=== PATIENT | male | born 1965 | race Caucasian/White ===

== ENCOUNTER 2018-07-16 02:40 | Outpatient (CLI) | payer BC, SELFPAY ==
[2018-07-16 15:40] LABS: Hemoglobin A1C 7.3 % (4.5-6.2)
== END 2018-07-16 03:00 ==
PROVIDERS: PCP Family Medicine; Visit Provider Family Medicine
DX: E10.9 Type 1 diabetes mellitus without complications (principal)
CPT/HCPCS: 36415; 83036

== ENCOUNTER 2019-07-10 02:29 | Outpatient (CLI) | payer BC, SELFPAY ==
[2019-07-10 11:59] LABS: Hemoglobin A1C 7.3 % (3.8-5.6)
== END 2019-07-10 02:49 ==
PROVIDERS: PCP Family Medicine; Visit Provider Family Medicine
DX: R73.9 Hyperglycemia, unspecified (principal)
CPT/HCPCS: 36415; 83036

== ENCOUNTER → 2019-10-29 11:09 | Outpatient (CLI) | payer BC, SELFPAY ==
--- NOTE | 2019-10-29 10:45 | DI.RAD_ITS ---
EXAM: XR SHOULDER RT COMPLETE 2+V CLINICAL HISTORY: RIGHT SHOULDER PAIN. TECHNIQUE: 2D digital imaging was performed. COMPARISON: No exams were available for comparison FINDINGS: BONES: No acute fracture is present. No bony destructive lesion is seen. JOINTS: No dislocation present. There is mild spurring at the AC joint and glenohumeral joint. SOFT TISSUE: Normal. No tendon or joint space calcifications are seen. IMPRESSION: Mild degenerative changes. DATA REPOSITORY: RADIATION DOSE DELIVERED:
== END ==
PROVIDERS: PCP Family Medicine; Referring Provider Family Medicine; Visit Provider Physician Assistant
DX: M25.511 Pain in right shoulder (principal); M19.011 Primary osteoarthritis, right shoulder
CPT/HCPCS: 73030

== ENCOUNTER → 2019-12-16 01:47 | Outpatient (CLI) | payer BC, SELFPAY ==
--- NOTE | 2019-12-16 15:35 | DI.MRI_ITS ---
EXAM: MR UPPER JOINT RT WO CLINICAL HISTORY: RT SHOULDER PAIN, RT ROTATOR CUFF TEAR,M75.101. TECHNIQUE: Multiplanar multisequence MRI was performed. COMPARISON: CR XR SHOULDER RT COMPLETE 2+V from 10/29/2019 FINDINGS: MR examination shoulder was performed according to the usual protocol. Bones: There are moderate hypertrophic degenerative changes of the acromion and clavicle at the acrom ioclavicular joint. There is a prominent inferior acromial spur. There appears to be associated def ormity of superior aspect of supraspinatus tendon and myotendinous junction region associated with th chris findings. No other significant bony abnormality seen. Glenoid labrum appears grossly intact by noncontrast criteria. Biceps tendon: Biceps tendon and anchor appear intact with biceps tendon normally positioned in the b icipital groove. Rotator cuff: There is thickening of the infraspinatus tendon with mild intrasubstance signal abnorma lities consistent with tendinosis, question mild roughening of inferior surface of infraspinatus tend on may represent mild partial thickness tearing. Supraspinatus tendon is deformed superiorly at the AC joint with mild associated signal abnormality. There is an apparent bursal surface tear of the supraspinatus at the level of the distal acromion me asuring up to 8 millimeters in diameter.. There is probable small inferior surface tear just proxima l to the footprint measuring up to about 3 millimeters in diameter. There is no full-thickness tear of the supraspinatus. The footprint appears intact. Subscapularis tendon shows mild irregularity of its superior aspect which probably represents some sm all partial-thickness tear is at and proximal to the humeral attachment. No full-thickness subscapul bryan tendon tear. IMPRESSION: Degenerative changes with associated supraspinatus impingement. Supraspinatus, infraspinatus and garcia b scapularis tendon partial-thickness tears, no full-thickness rotator cuff tear identified. DATA REPOSITORY:
== END ==
PROVIDERS: PCP Family Medicine; Visit Provider Orthopaedic Surgery
DX: M25.511 Pain in right shoulder (principal); M75.101 Unspecified rotator cuff tear or rupture of right shoulder, not specified as traumatic
CPT/HCPCS: 73221

== ENCOUNTER 2020-01-23 07:17 | Outpatient (CLI) | payer BC, SELFPAY ==
[2020-01-24 14:40] LABS: COVID-19 RT-PCR Result NEGATIVE (Negative)
== END 2020-01-23 07:37 ==
PROVIDERS: PCP Family Medicine; Visit Provider Orthopaedic Surgery
DX: Z11.59 Encounter for screening for other viral diseases (principal); Z01.818 Encounter for other preprocedural examination
CPT/HCPCS: U0003

== ENCOUNTER 2020-01-26 09:19 | Day surgery (SDC) | payer BC, SELFPAY ==
[2020-01-26] VITALS (7 sets, daily range): BP systolic 88–138; BP diastolic 41–78; PULSE 52–74; RESP 11–18; TEMP 36–36.4; O2SAT 96–98
[2020-01-26] MEDS: Lactated Ringers 1,000 ML 80 ML IV (10:03)
[2020-01-26] MEDS: ceFAZolin 1 GM/50 ML BAG IVPB (11:38)
--- NOTE | 2020-01-26 12:26 | W.PM.DSUDISC ---
Discharge Plan Disposition Patient Disposition: HOME Condition: Good Discharge Details Attending Provider: Aman Marr Primary Care Provider: Jay Gomez Home Meds and New Rx's Prescriptions: New ibuprofen 800 mg tablet 800 mg PO TID Qty: 30 RF: 0 oxycodone-acetaminophen 5-325 mg tablet 1 tab PO Q4H PRN (Reason: pain) Qty: 20 RF: 0 Continued ketoconazole 2 % cream 1 applic TP BID PRN (Reason: tinea versicolor) Qty: 30 RF: 1 insulin lispro [Humalog U-100 Insulin] 100 UNIT/1 ML solution 2 - 15 units SQ AC RF: 0 atorvastatin 40 mg tablet 40 mg PO QHS RF: 0 Lantus Solostar U-100 Insulin 100 unit/mL (3 mL) insulin pen 24 unit SC HS RF: 0 calcium carbonate 500 MG tablet,chewable 500 mg PO PRN PRNRF: 0 Discharge Instructions Additional Instructions: Sling for comfort. May take R arm out of sling and move it as much as your pain allows. Discontinue sling when you don't feel you need it. Leave cryocuff on R shoulder continuously overnite tonite. Tomorrow, start to use it 4 times/day for 1 hour each time. May shower and get dressing wet on Sun. Don't take dressing off--let it gradually fall off by itself. Outpatient physical therapy for ROM and strengthening R shoulder on or Sunday. Follow up with in 2 weeks. Take ibuprofen 3 times/day for swelling and inflammation. Take oxycodone for breakthru pain, if needed. Referrals: Aman Marr MD [ [facility] STAFF PHYSICIAN] - (f/u in 2 weeks.) Equipment/Supplies: Sling Activity:: Activity as Tolerated Remove Dressings/Wound Care:: Do Not Remove Shower/Bathe:: 48 hours Diet:: Carb Counting Discharge Orders Discharge Orders: Discharge Order (Routine); Ordered 01/26/20 Ordered By: Aman Marr DS: Diagnosis Discharge Diagnosis (1) DJD of AC (acromioclavicular) joint: Status: Acute (2) Impingement syndrome of left shoulder: Status: Acute
--- NOTE | 2020-01-26 13:09 | W.PM.OP ---
Date of service: 01/26/20 Time of Service: 11:30 Operative Note Operative Note DATE OF PROCEDURE: 01/26/20 PRE-OP DIAGNOSIS: DJD AC joint right, impingement syndrome right shoulder. POST-OP DIAGNOSIS: same PROCEDURE: Excision distal clavicle right, anterior acromioplasty right SURGEON: Aman Marr [employer] ATTENDANT: Roderick Watson ANESTHESIA: GETA ESTIMATED BLOOD LOSS: 20 PATHOLOGY: none sent COMPLICATIONS: None Patient was transported to: PACU Patient's condition: stable Indications: 54-year-old [id number] male with a many year history of right shoulder pain. This is been managed conservatively with the subacromial space injections and PT. Over the last year his right shoulder pain has become more pronounced and refractory to conservative treatment. He was noted to have DJD of the AC joint as well as impingement syndrome from his anterior acromion. MRI scan was obtained which did not show a full-thickness tear of his rotator cuff. He did have tendinosis/partial-thickness tear that were probably due to his subacromial impingement. I felt he would benefit by excision distal clavicle as well as an anterior acromial plasty. This will eliminate the pain from the AC joint and decompress his rotator cuff. Risk and hesitancy to explained patient detail preop. He was to proceed soon as possible. Procedure Description: Patient taken the operating room on 01/26/2020 where he was put supine operative table and general anesthetic was administered. Medial roll was placed medial to his right scapula he was placed in the eden chair position. Right shoulder was then prepped and draped free in usual sterile fashion. Incision was made over the superior aspect of the clavicle centered over the AC joint and then was carried distally about a centimeter distal to the lateral acromion. Subcutaneous veins were cauterized. Proximal incision was made in the AC joint capsule and then the distal clavicle was subperiosteally exposed. The distal centimeter clavicle was then transected with an oscillating saw and excised. Using sharp dissection subperiosteally exposed the anterior acromion. The and acromioplasty was performed first using osteotomes and a mallet. It was then further smoothed with a large rasp. The resected distal clavicle was then packed with bone wax alignment postop bleeding. The wound margins rotated 0.5% Marcaine with epinephrine solution. The AC joint capsule and periosteum over the distal clavicle were approximated interrupted [id number] sutures of #1 Maxon today. The anterior deltoid was sutured back to the periosteum over the acromion with interrupted [id number] sutures of #1 Maxon suture. Subcu was approximated few interrupted 2-0 Vicryl's. A running subcu suture of 4-0 Monocryl supplemented with Steri-Strip was then performed. A Mepilex dressing was applied. The wound margins have infiltrated 0.5 the Marcaine with epinephrine solution from the skin down to the rotator cuff. Patient's anesthesia was reversed all complication. Estimated blood loss was 20 cc. Patient was discharged to recovery in good condition. Patient was discharged home from day surgery unit and fully recovered from his general anesthesia. He was given instructions to use a sling for comfort. May take his right arm out of the sling as much and as often as discomfort allows. He may discontinue the sling when he does not feel its necessary. He may shower and get his dressing wet on Sunday. He is to leave his dressing alone and let it fall off by itself. We will begin outpatient physical therapy on or Sunday for range of motion strengthening of his right shoulder. He is given prescription for inflammation of ibuprofen 8 oh milligrams p.o. 3 times daily. 0 prescription for breakthrough pain of oxycodone with APAP 10/04/2024 1 tab every 4 hours if needed. Follow-up with Dr. Marr in 2 weeks.
== END 2020-01-26 15:00 | disposition home or self-care (01) ==
PROVIDERS: PCP Family Medicine; Visit Provider Orthopaedic Surgery
PROC: (CPT 23120; principal; 2020-01-26 11:00)
PROC: (CPT 23130; 2020-01-26 11:00)
DX: M19.011 Primary osteoarthritis, right shoulder (principal); M75.42 Impingement syndrome of left shoulder; M75.111 Incomplete rotator cuff tear or rupture of right shoulder, not specified as traumatic
CPT/HCPCS: 23415; 23120; J0690; J1100; J1885; J2001; J2370; J2405; J2704; L3650; L3670

== ENCOUNTER 2020-06-16 04:48 | Outpatient (CLI) | payer BC, SELFPAY ==
[2020-06-16 17:47] LABS: Hemoglobin A1C 7.1 % (<5.7)
[2020-06-17 17:43] LABS: PSA, Screening 0.4 ng/mL (0.0-3.5)
== END 2020-06-16 05:08 ==
PROVIDERS: PCP Family Medicine; Visit Provider Family Medicine
DX: E78.5 Hyperlipidemia, unspecified (principal); Z12.5 Encounter for screening for malignant neoplasm of prostate
CPT/HCPCS: 36415; 84153; 83036

== ENCOUNTER 2020-09-07 06:17 | Day surgery (SDC) | payer BC, SELFPAY ==
[2020-09-07 06:19] VITALS: BP 122/74; PULSE 66; RESP 17; TEMP 36.6; O2SAT 97
--- NOTE | 2020-09-07 07:01 | W.PM.DSUDISC ---
Discharge Plan Disposition Patient Disposition: HOME Condition: Good Discharge Details Reason For Visit: TRIGGER FINGER Attending Provider: Nawaf Bejarano Primary Care Provider: Jay Gomez Home Meds and New Rx's Prescriptions: New acetaminophen 500 mg tablet 1,000 mg PO Q8H PRN (Reason: pain) Qty: 30 RF: 3 ibuprofen 600 mg tablet 600 mg PO TID PRN (Reason: pain) Qty: 30 RF: 3 Continued ketoconazole 2 % cream 1 applic TP BID PRN (Reason: tinea versicolor) Qty: 30 RF: 1 insulin lispro [Humalog U-100 Insulin] 100 UNIT/1 ML solution 2 - 15 units SQ AC RF: 0 atorvastatin 40 mg tablet 40 mg PO QHS RF: 0 Lantus Solostar U-100 Insulin 100 unit/mL (3 mL) insulin pen 24 unit SC HS RF: 0 lisinopril 5 mg Tablet 5 mg PO HS RF: 0 calcium carbonate 500 MG tablet,chewable 500 mg PO PRN PRNRF: 0 Discontinued ibuprofen [IBU-200] 200 mg tablet 600 mg PO Q6H PRNRF: 0 Discharge Instructions Stand Alone Forms: Darci Calle Finger Release Activity:: Elevate Remove Dressings/Wound Care:: 48 hours Shower/Bathe:: 48 hours Diet:: As Tolerated Discharge Orders Discharge Orders: Discharge Order (Routine); Ordered 09/07/20 Ordered By: Nawaf Bejarano DS: Diagnosis Discharge Diagnosis (1) Trigger index finger of left hand: Status: Acute
[2020-09-07] MEDS: Sodium Bicarbonate 50 MEQ/50 ML VIAL (07:32)
--- NOTE | 2020-09-07 11:53 | ROE_ITS ---
Date of service: 09/07/20 Time of Service: 07:43 Operative Note Operative Note DATE OF PROCEDURE: 09/07/20 PRE-OP DIAGNOSIS: Left Index Trigger Finger POST-OP DIAGNOSIS: same PROCEDURE: Trigger Finger Release - Left Index Finger SURGEON: Nawaf Bejarano ANESTHESIA TYPE: Local By Surgeon Refer to Anesthesia Record ESTIMATED BLOOD LOSS: 0 PATHOLOGY: none sent COMPLICATIONS: None Patient was transported to: same day Patient's condition: stable Indications: I have seen Chas in clinic for symptoms of a trigger finger. The catching, clicking, locking, and pain limited function. The diagnosis of trigger finger was evident. The symptoms had not responded to conservative measures. I discussed trigger finger release with the patient. I reviewed the risks of the procedure to include, but not limited to, bleeding, infection, pain, stiffness, incomplete release, damage to nerves or vessels, continued catching, recurrence. Despite these risks, the patient elected to proceed. Findings: There was a tightened A1 ross which was released. The flexor tendons were inspected and the patient was able to move the finger without any catching, clicking, or locking. Procedure Description: Chas was greeted in the preoperative holding area where the correct side was identified and marked. The consent was reviewed with the patient and signed. All questions were answered. Chas was taken back to the operating room. The patient was placed into the supine position on the operating room table with the left arm on an arm board. All bony prominences were well padded. No prophylactic antibiotics were administered since this was a clean, elective hand surgical case. The left arm was then prepped with Chloraprep and draped in a standard fashion with stockinette and extremity drape. A timeout to confirm correct identity, side and site, procedure, allergies, anesthesia, and medical concerns was performed. The surgical site was marked as a longitudinal incision directly over the A1 ross of the involved digit. This was confirmed with palpation during finger flexion. This area, overlying the metacarpal head, was then anesthetized with 1% Lidocaine. The patient tolerated this well and once the anesthetic had setup, the procedure began. A longitudinal incision was made through skin only, approximately 1cm. The deep tissues were dissected bluntly. Once the A1 ross and flexor tendons were identified the soft tissue including neurovascular structures were retracted medially and laterally. There were no crossing structures over the A1 ross. The proximal edge of the ross was identified and the ross was incised with tenotomy scissors. There was a release of the tendons once this was fully released. The tendons were then removed from the wound and inspected. Excess synovium was resected. The tendons were then returned and the patient was asked to move the finger into deep flexion and back to extension. There was no recreation of the pre-operative symptoms. The hand was then once more inspected for any A0 ross or area of possible constriction. The wound was then irrigated and the skin was closed with a 4-0 Nylon. This was dressed with gauze and a Conform dressing. The patient tolerated the pro cedure well and was returned to the Same Day Surgery area in a stable condition suffering no known complication.
== END 2020-09-07 08:03 | disposition home or self-care (01) ==
PROVIDERS: PCP Family Medicine; Visit Provider Student in an Organized Health Care Education/Training Program
PROC: (CPT 26055; principal; 2020-09-07 07:30)
DX: M65.322 Trigger finger, left index finger (principal)
CPT/HCPCS: 26055

== ENCOUNTER 2020-11-08 11:35 | Outpatient (CLI) | payer BC, SELFPAY ==
--- NOTE | 2020-11-08 08:15 | DI.RAD_ITS ---
Exam(s) XR FINGER LT INDEX EXAM: XR FINGER LT INDEX EXAM DATE/TIME: CLINICAL HISTORY: s/p left index finger trigger finger. TECHNIQUE: 2D digital imaging was performed. COMPARISON: None. FINDINGS: BONES: No acute fracture is present. No bony destructive lesion is seen. JOINTS: No dislocation is present. SOFT TISSUE: Normal. IMPRESSION: No evidence of acute fracture or dislocation. DATA REPOSITORY: RADIATION DOSE DELIVERED:
== END 2020-11-08 11:36 | disposition home or self-care (01) ==
LOC: DIORS 11:35
PROVIDERS: PCP Family Medicine; Referring Provider Family Medicine; Visit Provider Physician Assistant
DX: M65.322 Trigger finger, left index finger (principal); Z98.890 Other specified postprocedural states
CPT/HCPCS: 73140

== ENCOUNTER 2021-07-04 13:47 | Outpatient (REF) | payer BC, SELFPAY ==
[2021-07-06 11:23] LABS: COVID-19 RT-PCR UVMMC Result Negative (Negative)
--- NOTE | 2021-07-08 17:44 | CHAPLAIN ---
Chas was resting in bed when I visited. 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 He thinks he may be discharged today. He was concerned about the three year old granddaughter who had surgery recently and today had a temperature.
== END 2021-07-04 13:48 | disposition home or self-care (01) ==
LOC: LBN 13:47
PROVIDERS: PCP Family Medicine; Visit Provider Family Medicine
DX: R05.9 Cough, unspecified (principal); Z20.822 Contact with and (suspected) exposure to COVID-19
CPT/HCPCS: U0003

== ENCOUNTER 2021-07-06 13:36 | Inpatient (IN) | payer BC, SELFPAY ==
[2021-07-06] VITALS (27 sets, daily range): BP systolic 124–160; BP diastolic 53–96; PULSE 81–112; RESP 8–33; TEMP 36.5–37.8; O2SAT 91–97
--- NOTE | 2021-07-06 13:30 | RT.EKG_ITS ---
APPROVED REPORT Exam: Resting ECG Reason for Exam: sob Patient Location: E HR:94 bpm ECG Measurements Heart Rate 94 AXIS AK 81 P 36 QRSd 89 QRS 86 QT 335 T 53 QTc 420 Conclusion Sinus rhythm...normal P axis, V-rate 60- 99 sinus rhythm at 94, normal axis, no acute ischemic changes, nondiagnostic EKG
--- NOTE | 2021-07-06 14:20 | ED.GENADUL_ITS ---
Discharge Plan Disposition Patient Disposition: [facility] INPATIENT Condition: Stable Discharge Details Clinical Impression: Hypoxia, Cough Admit Date/Time: 07/06/21 18:00 Admit Provider: Christopher Jacob Attending Provider: Christopher Jacob Primary Care Provider: Jay Gomez ED Provider: Narayan Ramirez Discharge Data Discharge Date/Time-TO BE ENTERED AT DEPARTURE: 07/06/21 19:21 Medical Decision Making <Samanta Ramirez MD - Last Filed: 07/21/21 10:26> Chas Kingsley is a 56 y/o man with history of insulin dependent diabetes, hyperlipidemia, hypertension who presented to the emergency department for shortness of breath and cough over the past few days, also with orthopnea. On exam patient initially with O2 90% on room air, satting 96 to 97% with 2 L nasal cannula. Normal work of breathing on oxygen, slight tachypnea on room air. Lungs are clear to auscultation. No peripheral edema, no posterior calf tenderness to palpation. Bedside POCUS shows no pericardial effusion, B-lines throughout anterior bilateral lung holcomb. Concern for acute coronary syndrome, CHF, Covid, bacterial pneumonia, pulmonary embolism, metabolic/lyte derangement, other. Exam/history is not consistent with acute aortic pathology, sepsis. EKG is nondiagnostic. Plan for IV placement, screening labs, chest x-ray, continue nasal cannula O2, telemetry. Will monitor and reassess. Pt signed out to Dr. Ramirez with imaging, labs, dispo pending. Medical Records Medical records reviewed: Yes I reviewed the patient's medical records. Imaging Data Radiologic Study: Attestation: I personally reviewed and interpreted this imaging study as follows: Lab Data Lab results reviewed: Yes I reviewed the patient's lab results. Labs: Laboratory Tests Range/Units 07/06/21 07/06/21 07/06/21 14:20 14:20 14:40 WBC (4.4-10.8) 10^3/uL 14.28 H RBC (4.36-5.78) 10^6/uL 4.97 Hgb (13.5-17.5) g/dL 15.3 Hct (40.0-50.0) % 45.3 MCV (80-95) fL 91.1 MCH (27.0-33.0) pg 30.8 MCHC (32.0-36.0) % 33.8 RDW (11.8-14.1) % 12.7 Plt Count (130-400) 10^3/uL 299 MPV (8.0-11.0) fL 10.8 Immature Gran % 1.1 Neutrophils % 77.5 Lymphocytes % 7.4 Monocytes % 10.4 Eosinophils % 3.2 Basophils % 0.4 Nucleated RBC % % 0 Absolute Neutrophils (1.2-6.7) 10^3/uL 11.07 H Absolute Lymphocytes (1.2-3.4) 10^3/uL 1.06 L Absolute Monocytes (0.1-0.8) 10^3/uL 1.49 H Absolute Eosinophils (0.0-0.7) 10^3/uL 0.46 Absolute Basophils (0.0-0.2) 10^3/uL 0.06 Sodium (136-145) mmol/L 135 L Potassium (3.5-5.1) mmol/L 4.2 Chloride (98-107) mmol/L 99 Carbon Dioxide (21.0-32.0) mmol/L 27.9 Anion Gap (3-11) mmol/L 8.1 BUN (7-18) mg/dL 21 H Creatinine (0.70-1.30) mg/dL 1.0 Estimated GFR/1.73 m2 (mL/min/1.73m2) >= 60.00 Glucose (74-106) mg/dL 147 H Calcium (8.5-10.1) mg/dL 9.0 Magnesium (1.8-2.4) mg/dL 1.9 Total Bilirubin (0.2-1.0) mg/dL 0.7 AST (15-37) U/L 14 L ALT (16-63) U/L 25 Alkaline Phosphatase (46-116) U/L 92 Troponin I (<or=60) ng/L < 50 NT-Pro-B Natriuret Pep (<300) pg/mL 27 Total Protein (6.4-8.2) g/dL 6.9 Albumin (3.4-5.0) g/dL 3.3 L COVID-19 Source Nasopharynx SARS-CoV-2 (PCR) (Negative) Negative Influenza Type A (PCR) (Negative) Negative Influenza Type B (PCR) (Negative) Negative RSV (PCR) (Negative) Negative ECG Data Attestation: I personally reviewed and interpreted this ECG (s) as follows: Interpretation: EKG shows sinus rhythm at 94, normal axis, no acute ischemic changes, nondiagnostic EKG <Narayan Ramirez MD - Last Filed: 07/06/21 22:54> 1645 -- Care signed out by Dr. Samanta Ramirez with plan to follow-up on CT chest and reassess patient for disposition. Please see her documentation regarding initial ED presentation and course. Notified by nursing that patient having increased work of breathing despite low flow nasal cannula oxygen. Nasal cannula oxygen increased to 4 L and still having increasing work of breathing. RT was consulted and BiPAP was initiated. Patient now breathing easier on BiPAP. VBG reviewed and no significant acidosis or hypoxemia noted. CT chest pending. 1752 --nursing provided update the BiPAP was discontinued and patient tolerating nasal cannula. CT of the chest was interpreted by radiology: No evidence of pulmonary embolism or other acute abnormality, notably unremarkable lungs with no consolidation or masses, heart noted to be unremarkable with no cardiomegaly and no pericardial effusion. Here labs reviewed and COVID-19 negative. Unclear etiology for hypoxia. Plan to admit for further work-up and treatment. Will cover with ceftriaxone and azithromycin IV for possible pneumonia. 1800 -- I spoke with Dr. Lopez, accordion repairer hospitalist/home therapy clinician who will admit patient. HPI <Samanta Ramirez MD - Last Filed: 07/21/21 10:26> General Mode of arrival: ambulatory . Date/Time Provider Initiated Documentation: 07/06/21 13:41 . Limitations to Documentation: no limitations . Information obtained by: patient, RN notes reviewed and old records reviewed . HPI Narrative: Chas Kingsley is a 56-year-old man with a history of insulin-dependent diabetes, hyperlipidemia, sleep apnea, hypertension presenting to emergency department with chief complaint shortness of breath. Patient reports that during the afternoon of 06/24/2021 he began to feel short of breath. Patient reports that there were no known inciting event at this time. He also developed cough. Patient reports that since that time he has had worsening shortness of breath. He has had sleep sitting up in a recliner which he has never had to do before. Shortness of breath is also worse with exertion. Patient reports that he does have dyspnea at rest, although much less than when exerting himself or lying flat. He denies any pain. No fevers, vomiting, numbness, weakness, rash. He reports some skin itching over the past few days, and has some mild diarrhea. Patient reports that he has been triple vaccinated for COVID, and has had 2 - antigen test and one negative PCR test for Covid since onset of symptoms. Related Data Home Medications Medication Instructions Recorded Confirmed calcium carbonate 200 mg calcium 500 mg PO PRN PRN 10/09/16 07/20/21 (500 mg) chewable tablet insulin glargine 100 unit/mL (3 24 unit SC HS ml 08/19/19 07/20/21 mL) subcutaneous pen (Lantus Solostar U-100 Insulin) lisinopril 5 mg tablet 5 mg PO HS 09/07/20 07/20/21 atorvastatin 40 mg tablet 80 mg PO QHS tab 10/08/20 07/20/21 sildenafil 100 mg tablet 50 - 100 mg PO DAILY PRN #30 tab 05/20/21 07/20/21 pen needle, diabetic 31 gauge x #50 ea 07/09/21 07/20/2108/17 (CareTouch Pen Needle) albuterol sulfate 90 mcg/actuation 2 puff INHALATION QID PRN #6.7 g 07/13/21 07/20/21 aerosol inhaler (Ventolin HFA) insulin lispro-aabc 100 unit/mL 1 sliding scale dose SUBCUT 07/13/21 07/20/21 subcutaneous pen (Nasra Ayoub USEASDIRECTD U-100 Insulin) famotidine 20 mg tablet 20 mg PO DAILY PRN #90 tab 07/20/21 07/20/21 Previous Rx's Medication Instructions Recorded sildenafil 100 mg tablet 50 - 100 mg PO DAILY PRN #30 tab 05/20/21 pen needle, diabetic 31 gauge x #50 ea 07/09/2108/17 (CareTouch Pen Needle) albuterol sulfate 90 mcg/actuation 2 puff INHALATION QID PRN #6.7 g 07/13/21 aerosol inhaler (Ventolin HFA) famotidine 20 mg tablet 20 mg PO DAILY PRN #90 tab 07/20/21 Allergies Allergy/AdvReac Type Severity Reaction Status Date / Time No Known Allergies Allergy Verified 07/20/21 15:02 General Stated Complaint: SOB SHIVANI: 2 Review of Systems <Samanta Ramirez MD - Last Filed: 07/21/21 10:26> Narrative: Constitutional: denies fevers Eyes: denies eye pain ENT: denies ear pain, dental pain, sore throat Cardiovascular: denies chest pain, edema, reports orthopnea Respiratory: Reports SOB, cough GI: denies abdominal pain, vomiting, diarrhea : denies flank pain MSK: denies back pain, neck pain, arthralgias, myalgias Skin: denies rash, reports generalized skin itching Neuro: denies headaches, numbness, weakness PFSH <Samanta Ramirez MD - Last Filed: 07/21/21 10:26> All Active Problems Adjustment disorder with depressed mood (Acute) DM (diabetes mellitus) (Acute) Viral pneumonitis (Acute) CARMENCITA on CPAP (Chronic) Former heavy tobacco smoker (Acute) Medical History Cellulitis of toe Cough Diabetes mellitus Diabetes mellitus type 1 (10/24/12) continue with endo Diabetic retinopathy of both eyes (~06/10/20) MODERATE B/L Elevated blood pressure reading without diagnosis of hypertension Esophagitis (04/09/17) 04/09/17 SEVERE WITH ULCER Gastritis (04/09/17) GERD (gastroesophageal reflux disease) Hyperlipidemia Hypertension Hypoxia Impingement syndrome of left shoulder Orthopnea CARMENCITA (obstructive sleep apnea) uses cpap Pneumonia Rash Respiratory failure with hypoxia Shoulder pain, right Subacromial bursitis Tear of right rotator cuff Tendinosis of rotator cuff Tinea corporis Tinea versicolor Trigger index finger of left hand s/p left index finger trigger release DOS: 09/07/20 Umbilical hernia Surgical History Colonoscopy - MAC (04/09/17) DJD of AC (acromioclavicular) joint S/P distal clavicle excision/acromioplasty: 01/26/2020 EGD - MAC (04/09/17) Family History Mother No problems noted. Father Alcohol abuse Heart disease Stroke Brother Heart disease Stroke Son , 25 Substance abuse Social History Smoking/Tobacco Use Status: Former Tobacco Use tobacco type: cigarettes Quit Date: 06/14/16 Tobacco: How many years used: 35 Smoking risk assessment performed?: Yes Alcohol Intake: current Alcohol Intake frequency: holidays/special occasions only Alcohol type: beer Drug use: Never Substance use type: does not use Caregiver/Support person: No Household members: spouse and adopted family Housing: house Communication Needs: None Do you need help understanding health information?: Rarely Pets and animals: Yes Pets and animals: cat(s) and dog(s) Sexually active: Yes Do you think of yourself as: straight/heterosexual Current gender identity: male What is your relationship status?: How often do you talk on the phone with friends or family?: once per week How often do you get together with friends or relatives?: once per week How often do you attend faith or islam services?: decline to answer Do you belong to any clubs or organized social groups?: no Panel score (0-1 are the most socially isolated patients): 1 What type of physical activity do you participate in: none Duration: 45-60 minutes/day Frequency: daily Rachele/Judaism: None Special rachele needs: No Seatbelt use: always Helmet use: No Drive intox or ride w/intox 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: No Do you feel safe at home: Yes Do you feel safe in your relationship?: Yes Victim of physical abuse: No Victim of emotional abuse: No Victim of sexual abuse: No Would you like helpful sources: No Exam <Samanta Ramirez MD - Last Filed: 07/21/21 10:26> Narrative Exam Narrative: Constitutional: well and [id number], pleasant, conversing normally HENT: head atraumatic/normocephalic/normal inspection, mucous membranes moist Eyes: conjunctiva normal, sclera normal, pupils 3mm b/l Neck: no stridor, normal ROM, trachea midline Chest: normal inspection Resp: Mild tachypnea on room air, improved with 2 L nasal cannula oxygen. LCTAB Cardio: normal rate, normal rhythm, no murmur appreciated GI: abdomen soft, non-tender, non-distended Back: normal inspection, no rash Skin: warm, dry, normal color, no rash Neuro: alert, not altered, grossly non-focal, normal tone Ext: no edema, no posterior calf tenderness to palpation Psych: normal mood, normal affect, normal behavior Course <Samanta Ramirez MD - Last Filed: 07/21/21 10:26> Vital Signs Vital signs: Vital Signs Temperature 36.5 C 07/06/21 13:46 Pulse 98 H 07/06/21 13:46 Respiratory Rate 14 07/06/21 13:46 Pulse Oximetry 92 07/06/21 13:46 Temperature 36.5 C 07/06/21 13:46 Pulse 103 H 07/06/21 14:03 Pulse 93 H 07/06/21 14:03 Respiratory Rate 25 H 07/06/21 14:03 Respiratory Effort Non-Labored 07/06/21 13:52 Respiratory Depth Normal 07/06/21 13:52 Respiratory Pattern Normal 07/06/21 13:52 Blood Pressure 138/96 H 07/06/21 14:03 Blood Pressure Mean 103 07/06/21 14:03 Blood Pressure Position Sitting 07/06/21 13:46 Pulse Oximetry 94 07/06/21 14:03 Oxygen Delivery Method Room Air 07/06/21 13:46 Oxygen Flow Rate 0 07/06/21 13:46 Pain Level 0 07/06/21 13:46 <Narayan Ramirez MD - Last Filed: 07/06/21 22:54> Critical Care Time Critical Care Time: Yes Total Critical Care Time: 40 Attestation: I spent greater than 40 minutes addressing this patient's immediate life threats. Please see MDM section of note. This time was spent engaged in work directly related to the patient's care, exclusive of separate procedures, and failure to initiate these interventions would have likely resulted in clinically significant or life threatening deterioration in the patient's condition. Sign Out <Samanta Ramirez MD - Last Filed: 07/21/21 10:26> Sign Out Data: Sign Out Comment: Patient signed out to Dr. Ramirez at time of shift change with labs, CT chest, dispo pending Last updated by Samanta Ramirez MD at 07/06/21 15:36
[2021-07-06 14:38] LABS: Abs Immature Grans 0.15 10^3/uL (0.0-0.06); Absolute Monocyte Count 1.49 10^3/uL (0.1-0.8); Basophils % 0.4; Eosinophils % 3.2; HCT 45.3 % (40.0-50.0); HGB 15.3 g/dL (13.5-17.5); Immature Grans % 1.1; Lymphocytes % 7.4; MCH 30.8 pg (27.0-33.0); MCHC 33.8 % (32.0-36.0); MCV 91.1 fL (80-95); MPV 10.8 fL (8.0-11.0); Monocytes % 10.4; Neutrophils % 77.5; Nucleated RBC 0 %; Platelet Count 299 10^3/uL (130-400); RBC 4.97 10^6/uL (4.36-5.78); RDW 12.7 % (11.8-14.1); RDW-SD 42.5 fL; WBC 14.28 10^3/uL (4.4-10.8)
[2021-07-06 14:46] LABS: Source Nasopharynx
[2021-07-06 14:59] LABS: ALT 25 U/L (16-63); AST 14 U/L (15-37); Albumin 3.3 g/dL (3.4-5.0); Alkaline Phosphatase 92 U/L (46-116); Anion Gap 8.1 mmol/L (3-11); BUN 21 mg/dL (7-18); Bilirubin, Total 0.7 mg/dL (0.2-1.0); CO2 27.9 mmol/L (21.0-32.0); Chloride 99 mmol/L (98-107); Glucose 147 mg/dL (74-106); Magnesium 1.9 mg/dL (1.8-2.4); NT-proBNP 27 pg/mL (<300); Potassium 4.2 mmol/L (3.5-5.1); Sodium 135 mmol/L (136-145); Total Protein 6.9 g/dL (6.4-8.2); Troponin I < 50 ng/L (<or=60)
[2021-07-06 15:13] LABS: Absolute Basophil Count 0.06 10^3/uL (0.0-0.2); Absolute Eosinophil Count 0.46 10^3/uL (0.0-0.7); Absolute Lymphocyte Count 1.06 10^3/uL (1.2-3.4); Absolute Neutrophil Count 11.07 10^3/uL (1.2-6.7)
[2021-07-06 15:28] LABS: COVID-19 PCR Negative (Negative); Influenza A PCR Negative (Negative); Influenza B PCR Negative (Negative); RSV PCR Negative (Negative)
--- NOTE | 2021-07-06 15:30 | DI.CT_ITS ---
Exam(s) CT CHEST PE CTA EXAM: CT CHEST PE CTA CLINICAL HISTORY: SOB. TECHNIQUE: Imaging Protocol: Axial CT angiography was performed with multi-slice acquisition and mu lti-planar and/or 3D reconstructions. CONTRAST MATERIAL: Intravenous: Omnipaque 350 Contrast volume:structured data in ml COMPARISON: No exams were available for comparison FINDINGS: CT angiography of the chest was performed with intravenous infusion of 64 cc of Omnipaque 350. Motio n artifact limits evaluation of peripheral pulmonary vessels. The lungs are clear. No pleural effusion. Tracheobronchial tree appears intact. No evidence of pulmonary embolic disease. Thoracic aorta is of normal diameter, no thoracic aortic an eurysm or dissection, major branch vessels appear intact. No mediastinal or hilar adenopathy. Images obtained through the upper abdomen show unremarkable appearance of the visualized portions of the liver, spleen, pancreas, adrenals, and kidneys. IMPRESSION: Negative CT angiogram of the chest. No evidence of pulmonary embolic disease. Motion artifact limits evaluation of peripheral pulmonary vessels. RADIATION DOSE DELIVERED: 357.62mGy.cm Total DLP 357.62mGy.cm Total DLP CTDIvol DATA REPOSITORY: All CT scans at this facility are submitted to the National Radiology Data Registry (NRDR) Dose Index Registry (DIR) with the [employer] (A[employer]). RADIATION OPTIMIZATION: All CT scans at this facility use at least one of these dose optimization te chniques: automated exposure control; mA and/or kV adjustment per patient size (includes targeted exa ms where dose is matched to clinical indication); or iterative reconstruction.
[2021-07-06 15:47] LABS: D-Dimer 1586 ng/mlFEU (<500)
[2021-07-06 16:27] LABS: BE (Venous) 5 mmol/L (-2-3); HCO3 (Venous) 29 mmol/L (23-28); O2 Sat (Venous) 74 %; TCO2 (Venous) 25 mmol/L (24-29); pCO2 (Venous) 43 mmHg (41-51); pH (Venous) 7.43 (7.31-7.41); pO2 (Venous) 39 mmHg
[2021-07-06] MEDS: Omnipaque 350 MG/ML 100 ML BTL IJ (16:43)
--- NOTE | 2021-07-06 17:15 | RT.EKG_ITS ---
APPROVED REPORT Exam: Resting ECG Reason for Exam: shortness of breath Patient Location: E HR:103 bpm ECG Measurements Heart Rate 103 AXIS PA 88 P 51 QRSd 81 QRS 84 QT 327 T 55 QTc 429 Conclusion Sinus tachycardia...rate> 99
[2021-07-06] MEDS: Calcium Carbonate *TUMS* 500 MG CHEW 1000 MG PO (17:22)
--- NOTE | 2021-07-06 17:22 | DI.VRAD_ITS ---
PROCEDURE INFORMATION: Exam: CTA Chest With Contrast Exam date and time: 07/06/2021 3:31 PM Age: 56 years old Clinical indication: Shortness of breath; Patient HX: SOB; Additional info: Elevated ddimer TECHNIQUE: Imaging protocol: Computed tomographic angiography of the chest with contrast. 3D rendering (Not supervised by radiologist): MIP and/or 3D reconstructed images were created by the technologist. COMPARISON: MR UPPER JOINT RT WO 12/16/2019 3:02 PM FINDINGS: Pulmonary arteries: Normal. No pulmonary emboli. Aorta: Unremarkable. No aortic aneurysm. No aortic dissection. Lungs: Unremarkable. No consolidation. No masses. Pleural spaces: Unremarkable. No pneumothorax. No pleural effusion. Heart: Unremarkable. No cardiomegaly. No pericardial effusion. Lymph nodes: Unremarkable. No enlarged lymph nodes. Bones/joints: Unremarkable. No acute fracture. Soft tissues: Unremarkable. IMPRESSION: No evidence of pulmonary embolism or other acute abnormality. Dictated and Authenticated by: Evan Blank MD. Ordering:ANTON England MD
[2021-07-06 17:39] LABS: Troponin I < 50 ng/L (<or=60)
--- NOTE | 2021-07-06 18:15 | HPE_ITS ---
Date of service: 07/06/21 Time of Service: 18:15 Assessment and Plan Assessment and plan (1) Pneumonia: Status: Acute Assessment and plan: Chest CT is consistent with an atypical pneumonia with nodular infiltrates. Viral testing (COVID, Flu, RSV) has been negative. I will cover him for CAP given his elevated WBC count, pulmonary infiltrates, hypoxia and clinical picture. Would plan on continuing a 5-7 day course of CAP coverage antibiotics. -ceftriaxone 1g IV and azithromycin 500mg PO for this purpose. - negative viral studies - blood cultures pending - sputum sample ordered Qualifiers: Laterality: bilateral Lung location: upper lobe of lung Pneumonia t ype: due to unspecified organism Qualified Code(s): J18.9 - Pneumonia, unspecified organism (2) Respiratory failure with hypoxia: Status: Acute Assessment and plan: He does have hypoxic respiratory failure (no hypercapnea on VBG) suspected to be multifactorial in the setting of pneumonia as well as some volume overload. He does not have LE edema, but had B-lines on POCUS and septal thickening on CT in addition to mild JVD and orthopnea. He denies prior heart issues, but they do run in his family. He has never had an echocardiogram in the past. I am concerned about occult hypervolemia given all of my available information so will give a trial of Lasix. - Acapella and incentive spirometry - albuterol updraft prn - one time Lasix 20mg IV to assess response Qualifiers: Chronicity: acute Qualified Code(s): J96.01 - Acute respiratory failure with hypoxia (3) Esophagitis: Status: Acute Assessment and plan: History of significant esophagitis with currect significant symptoms. Not on a home regimen for this aside from TUMS, which I will continue but will also start famotidine tonight to help his symptoms. - start famotidine nightly - continue tariq TUMS (4) Gastritis: Status: Acute Assessment and plan: Treatment as above Qualifiers: Gastritis type: unspecified gastritis Chronicity: chronic Gastritis bleeding: without bleeding Qualified Code(s): K29.50 - Unspecified chronic gastritis without bleeding (5) Hyperlipidemia: Status: Acute Assessment and plan: History of HLD on a statin regimen - continue atorvastatin 80mg Qualifiers: Hyperlipidemia type: unspecified Qualified Code(s): E78.5 - Hyperlipidemia, unspecified (6) Orthopnea: Status: Acute Assessment and plan: Concern for volume overlod as above - will give one time Lasix dose tonight (7) Diabetes mellitus: Status: Chronic Assessment and plan: Long standing IDDM on Lantus 24 nightly and a prandial carb correction aspart regimen. He is hyperglycemic this everning and so will plan to treat him with a sliding scale as well as his Lantus tonight. 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 Will monitor BP's and continue his home regimen - continue home lisinopril Qualifiers: Hypertension type: unspecified Qualified Code(s): I10 - Essential (primary) hypertension (9) Former heavy tobacco smoker: Status: Acute Assessment and plan: No prior respiratory symptoms, no need for intervention currently - prn albuterol updraft (10) CARMENCITA on CPAP: Status: Chronic Assessment and plan: He has a recalled unit but has not received a replacement yet. He is unsure of his settings but sounds as though he has autoPAP and beleives his settings may be 9-13. He has not had sleep medicine follow up in some time. - CPAP at night and with naps at 12 cmH2O History of Present Illness This is a 56 yo man with a medical history of insulin dependant diabetes, hypertension and CARMENCITA on CPAP who presents to the emergency department for shortness of breath. He tells me he started feeling ill on Sunday with shortness of breath. He progressively become more dyspneic and developed a cough with sputum production. He was concerned about COVID (he is boosted) so took a home antigen test on Sunday and Sunday, both of which were negative. He was still feeling ill so reached out to his PCP who did a PCR COVID test, which again was negative. He wears CPAP at night for CARMENCITA and felt as though the CPAP was helping his breathing symptoms even while awake. He also notes sleeping sitting up on the couch the last few nights (which he never has had to do in the past). He was assessed in the ED and testing for Flu, COVID and RSV, all of which were negative. His D-dimer was elevated and so underwent a CTPE, which was negative for PE or any findings consistent with COVID. By my read there are some tree-in-bud and nodular infiltrates bilaterally (most predominant in the upper lobes). There is also upper lobe septal thickening and Dr. Samanta Ramirez on POCUS noted B-lines. He began have some respiratory decompensation during his ED stay and so was placed on BiPAP. He stayed on this for less than an hour and was able to be weaned back down to nasal cannula. On my assessment he is on 2L NC saturating 91%. He also complains of significant reflux that is causing some discomfort (negative trops x2). He is a non-drinker and has no drug abuse. He does have a significant smoking history (quit 2017), approx 70 pack years but have never had breathing issues previously, never warranted PFT's and has never been on inhalers. In code status discussion he wishes to be full code but to not be kept a vegetable. Review of Systems All systems reviewed & are unremarkable except as noted in HPI and below PFSH All Active Problems (Updated 07/06/21 @ 21:16 by Marybel Lopez MD) CARMENCITA on CPAP (Chronic) Former heavy tobacco smoker (Acute) Hypertension (Chronic) Diabetes mellitus (Chronic) Orthopnea (Acute) Pneumonia (Acute) Respiratory failure with hypoxia (Acute) Cough (Acute) Esophagitis (Acute 04/09/17) 04/09/17 SEVERE WITH ULCER Gastritis (Acute 04/09/17) Hyperlipidemia (Acute) Medical History (Updated 07/06/21 @ 21:16 by Marybel Lopez MD) Cellulitis of toe Diabetes mellitus type 1 (10/24/12) continue with endo Diabetic retinopathy of both eyes (~06/10/20) MODERATE B/L DM (diabetes mellitus) Elevated blood pressure reading without diagnosis of hypertension GERD (gastroesophageal reflux disease) Hypoxia Impingement syndrome of left shoulder CARMENCITA (obstructive sleep apnea) uses cpap Rash Shoulder pain, right Subacromial bursitis Tear of right rotator cuff Tendinosis of rotator cuff Tinea corporis Tinea versicolor Trigger index finger of left hand s/p left index finger trigger release DOS: 09/07/20 Umbilical hernia Surgical History (Updated 07/06/21 @ 20:35 by Marybel Lopez MD) Colonoscopy - MAC (04/09/17) DJD of AC (acromioclavicular) joint S/P distal clavicle excision/acromioplasty: 01/26/2020 EGD - MAC (04/09/17) Family History Mother No problems noted. Father Alcohol abuse Heart disease Stroke Brother Heart disease Stroke Son , 25 Substance abuse Social History Smoking/Tobacco Use Status: Former Tobacco Use tobacco type: cigarettes Quit Date: 06/14/16 Tobacco: How many years used: 35 Smoking risk assessment performed?: Yes Alcohol Intake: current Alcohol Intake frequency: holidays/special occasions o nly Alcohol type: beer Drug use: Never Substance use type: does not use Caregiver/Support person: No Household members: spouse and adopted family Housing: house Communication Needs: None Do you need help understanding health information?: Rarely Pets and animals: Yes Pets and animals: cat(s) and dog(s) Sexually active: Yes Do you think of yourself as: straight/heterosexual Current gender identity: male What is your relationship status?: How often do you talk on the phone with friends or family?: once per week How often do you get together with friends or relatives?: once per week How often do you attend caodaism or nondenominational services?: decline to answer Do you belong to any clubs or organized social groups?: no Panel score (0-1 are the most socially isolated patients): 1 What type of physical activity do you participate in: walking Duration: 45-60 minutes/day Frequency: daily Rachele/Orthodoxy: None Special rachele needs: No Seatbelt use: always Helmet use: No Drive intox or 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 w/intox 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 Do you feel safe at home: Yes Do you feel safe in your relationship?: Yes Victim of physical abuse: No Victim of emotional abuse: No Victim of sexual abuse: No Would you like helpful sources: No Meds Allergies and Home Medications Allergies Allergy/AdvReac Type Severity Reaction Status Date / Time No Known Allergies Allergy Verified 07/06/21 13:50 Home Medications Medication Instructions Recorded Confirmed Type insulin lispro [Humalog U-100 2 - 15 units SQ AC 09/05/16 07/06/21 History Insulin] calcium carbonate 500 mg PO PRN PRN 10/09/16 07/06/21 History insulin glargine 100 unit/mL (3 24 unit SC HS ml 08/19/19 07/06/21 History mL) subcutaneous pen lisinopril 5 mg PO HS 09/07/20 07/06/21 History atorvastatin 40 mg tablet 80 mg PO QHS tab 10/08/20 07/06/21 History sildenafil 100 mg tablet 50 - 100 mg PO DAILY PRN #30 tab 05/20/21 07/06/21 Rx Exam Const General: no acute distress Nutritional Appearance: well nourished [facility] Head: normocephalic Ears: external ears normal and no periauricular adenopathy General nose exam: nasal mucous membranes and turbinates normal Face and sinus: sinuses nontender Mouth: oropharynx normal and moist mucous membranes Teeth and gingiva: dentition normal Eyes General: appearance normal, both eyes and all related structures Pupils: PERRL Neck Neck: no lymphadenopathy and JVD Chest Chest: normal inspection of the chest Resp Effort & Inspection: normal respiratory effort Auscultation: diminished lung sounds, no rales, no rhonchi and no wheezes Cardio Rate: regular rate Rhythm: regular rhythm Heart Sounds: S1 normal, S2 normal and no murmurs Pulses: radial pulses present bilaterally GI Inspection: normal to inspection Palpation: soft Skin General skin exam: no rashes or lesions noted Neuro General: patient alert, patient awake and patient oriented x3 Extrem General: no clubbing, cyanosis or edema Psych Mental Status: mental status grossly normal Affect: normal affect Attitude: cooperative Results Labs Result diagrams: 07/06/21 14:20 07/06/21 14:20 Labs: Laboratory Results - last 24 hr 07/06/21 07/06/21 07/06/21 14:20 14:20 14:20 WBC 14.28 H RBC 4.97 Hgb 15.3 Hct 45.3 MCV 91.1 MCH 30.8 MCHC 33.8 RDW 12.7 Plt Count 299 MPV 10.8 Immature Gran % 1.1 Neutrophils % 77.5 Lymphocytes % 7.4 Monocytes % 10.4 Eosinophils % 3.2 Basophils % 0.4 Nucleated RBC % 0 Absolute Neutrophils 11.07 H Absolute Lymphocytes 1.06 L Absolute Monocytes 1.49 H Absolute Eosinophils 0.46 Absolute Basophils 0.06 D-Dimer 1586 H VBG pH VBG pCO2 VBG pO2 VBG HCO3 VBG Total CO2 VBG O2 Saturation VBG Base Excess Sodium 135 L Potassium 4.2 Chloride 99 Carbon Dioxide 27.9 Anion Gap 8.1 BUN 21 H Creatinine 1.0 Estimated GFR/1.73 m2 >= 60.00 Glucose 147 H Calcium 9.0 Magnesium 1.9 Total Bilirubin 0.7 AST 14 L ALT 25 Alkaline Phosphatase 92 Troponin I < 50 NT-Pro-B Natriuret Pep 27 Total Protein 6.9 Albumin 3.3 L COVID-19 Source SARS-CoV-2 (PCR) Influenza Type A (PCR) Influenza Type B (PCR) RSV (PCR) 07/06/21 07/06/21 07/06/21 14:40 16:10 17:15 WBC RBC Hgb Hct MCV MCH MCHC RDW Plt Count MPV Immature Gran % Neutrophils % Lymphocytes % Monocytes % Eosinophils % Basophils % Nucleated RBC % Absolute Neutrophils Absolute Lymphocytes Absolute Monocytes Absolute Eosinophils Absolute Basophils D-Dimer VBG pH 7.43 H VBG pCO2 43 VBG pO2 39 VBG HCO3 29 H VBG Total CO2 25 VBG O2 Saturation 74 VBG Base Excess 5 H Sodium Potassium Chloride Carbon Dioxide Anion Gap BUN Creatinine Estimated GFR/1.73 m2 Glucose Calcium Magnesium Total Bilirubin AST ALT Alkaline Phosphatase Troponin I < 50 NT-Pro-B Natriuret Pep Total Protein Albumin COVID-19 Source Nasopharynx SARS-CoV-2 (PCR) Negative Influenza Type A (PCR) Negative Influenza Type B (PCR) Negative RSV (PCR) Negative Last Vital Signs Temp 36.5 C 07/06/21 13:46 Pulse 103 H 07/06/21 17:31 Resp 33 H 07/06/21 17:31 BP 154/63 H 07/06/21 17:31 Pulse Ox 95 07/06/21 17:31
[2021-07-06] MEDS: cefTRIAXone 2 GM/50 ML BAG IVPB (18:26)
[2021-07-06] MEDS: Albuterol 2.5 MG/3 ML INH SOLN VIAL UPD ×2 (18:45→22:43)
[2021-07-06] MEDS: AZITHROMYCIN 500 MG in Normal Saline 250 ML 250 MG IVPB (18:46)
[2021-07-06] MEDS: Calcium Carbonate *TUMS* 500 MG CHEW PO (20:23)
[2021-07-06] MEDS: Enoxaparin 40 MG/0.4 ML SYR SC (20:23)
[2021-07-06] MEDS: Furosemide 20 MG/2 ML VIAL IVP (20:25)
[2021-07-06] MEDS: Insulin Aspart 300 UNITS/3 ML PEN SC (21:14)
[2021-07-06] MEDS: Insulin Glargine 300 UNITS/3 ML PEN 24 UNITS SC (21:17)
[2021-07-06] MEDS: Normal Saline Flush 10 ML SYR IVP (21:19)
[2021-07-06] MEDS: Famotidine 20 MG TAB 40 MG PO (21:46)
[2021-07-07] VITALS (12 sets, daily range): BP systolic 107–150; BP diastolic 61–74; PULSE 84–105; RESP 8–28; TEMP 36.2–37; O2SAT 92–96
--- NOTE | 2021-07-07 | DI.US_ITS ---
APPROVED REPORT EXAM: Comprehensive 2D, Doppler, and color-flow Echocardiogram Patient Location: In-Patient Resource Technician: Angie Doyle RDCS (AE) Indications: Dyspnea, Orthopnea, PND Conclusion Normal left ventricular wall thickness and chamber size. Estimated ejection fraction is 60%. Wall m otion is normal Normal right ventricular size and systolic function Both atria are normal in size There is no structural or hemodynamically significant valvular disease Right ventricular systolic pressure could not be estimated Wall motion Left Ventricle The left ventricle is normal size. The left ventricular systolic function is normal. The left ventric ular ejection fraction is within the normal range. There is normal left ventricular wall thickness. T here is normal LV segmental wall motion. There is no ventricular septal defect visualized. LVEF is 60 %. Right Ventricle The right ventricle is normal size. The right ventricular systolic function is normal. Atria The left atrium size is normal. The right atrium size is normal. The interatrial septum is intact wit h no evidence for an atrial septal defect. Aortic Valve The aortic valve is normal in structure. There is no aortic valvular stenosis. No aortic regurgitatio n is present. Mitral Valve The mitral valve is normal in structure. No evidence of mitral valve stenosis. Trace mitral regurgita tion. Tricuspid Valve The tricuspid valve is normal in structure. There is no tricuspid valve stenosis. Trace tricuspid reg urgitation. Unable to assess PA pressure. Pulmonic Valve The pulmonary valve is normal in structure. There is no pulmonic valvular stenosis. There is no pulmo jose armando valvular regurgitation. Great Vessels The aortic root is normal in size. The ascending aorta is normal in size. Aortic arch is not well vis ualized. IVC is normal in size and collapses >50% with inspiration. Pericardium There is no pericardial effusion. 2D Dimensions IVSD d PLAX 0.96 cm M: 0.6-1.2 LV Vol A2C d MOD 77.2 mL LVPW d PLAX 0.97 cm M: 0.6 - 1.2 LV Vol A4C d MOD 74.2 mL LVID d PLAX 4.14 cm M: 4.2 - 5.8 LA vol/ BSA A2C s A-L 16.6 mL/m2 LVDs 2.70 cm M: 2.5 - 4.0 LA vol/ BSA A4C s A-L 14.2 mL/m2 Ao Root d 2.67 cm M: 3.1 - 3.7 LA Vol/ BSA Biplane s A-L 15.4 mL/m2 RA Area A4C 7.15 cm2 LA Area A4C s MOD 11.29 cm2 RA Vol/ BSA A4C s A-L 6.9 mL/m2 LA Area A2C s MOD 12.26 cm2 Ao Asc Diam d 3.05 cm M: 2.6 - 3.4 LV EF A4C MOD 60.2 % LV EF Teichholz 63.4 % LV EF A2C MOD 59.5 % LVEF (Tejada's) 56.97 % M: 52 - 72 LV EF Biplane MOD 57.0 % LV Volume 60.16 mL M: 62 - 150 SV 43.76 mL LV Volume Index 34.18 mL/m2 M: 34 - 74 SV Index 24.79 mL/m2 LV Vol Biplane MOD 76.8 mL FS 34.05 % M-Mode TAPSE 2.10 cm (M/F) >1.7 LV Diastology MV E' medial 0.100 (>0.07 m/s) E/A Ratio 1.1 LV E/e MED 7.95 (<14) MV E Vmax 0.80 (0.4-1.3 m/s) MV E' lateral 0.125 (>0.1 m/s) MV A Vmax 0.75 (0.4-1.3 m/s) LV E/e LAT 6.40 (<14) MV E/A Ratio 1.04 MV E/E' medial 7.97 MV E/E' lateral 6.41 Aortic Valve LVOT Area 2.92 cm2 AoV Area Vmax 2.57 cm2 LVOT Vmax 1.40 m/s AoV Area/ BSA (Vmax) 1.46 cm2/m2 LVOT Mean Elroy. 0.83 m/s KESHAWN Mean Elroy. 2.32 cm2 LVOT Peak Grad 7.8 mmHg KESHAWN Mean [place]roy. Index 1.31 cm2/m2 LVOT Mean Grad 3.4 mmHg LVOT VTI 0.243 m LVOT Diam s 1.90 cm AoV Vmax 1.58 m/s Velocity Ratio 0.88 AoV Mean Elroy. 1.05 m/s AoV Peak Grad 10.0 mmHg LVOT SV 71.16 mL AoV Mean Grad 5.1 mmHg AoV VTI 0.276 m AoV Area VTI 2.58 cm2 AoV Area/ BSA (VTI) 1.46 cm/m2 Mitral Valve MV DT 221 (160-240 msec) MV PHT 64 msec MV Area PHT 3.43 cm2 MV VTI 0.264 m MV Area VTI 2.69 (4.0-6.0 cm2) Pulmonary Valve PV Vmax 1.07 (0.5-1.5 m/s) RVOT Peak Gr. 3.35 mmHg PV Peak Grad 4.5 mmHg RVOT Mean Gr. 1.70 mmHg PV Mean Grad 2.4 mmHg RVOT VTI 0.160 m PV VTI 0.201 m RVOT Vmax 0.91 m/s
[2021-07-07] MEDS: Albuterol 2.5 MG/3 ML INH SOLN VIAL UPD (03:22)
[2021-07-07] MEDS: Acetaminophen 325 MG TAB 650 MG PO (04:03)
--- NOTE | 2021-07-07 04:32 | NUR.NOTE ---
Nursing Note: Around 0315 Pt called RN into the room. On arrival patient was very anxious, hyperventilating with RR over 30/min, diaphoretic, and saying that he cant breath. Pt noted to very anxious and restless. Oxygen increased to 15 L High flow nasal cannula. VSS obtained and stable ( See vitals). PRN albuterol given with good effect. LS very diminished before treatment. Post treatment LS more clear and more air movement noted. Humidification applied to his high-flow. PRN tylenol give for lower back pain and pt requested to get up to the commode for a bowel movement. Pt has large loose brown Stool. Afterwards, Pt noted to be much more relaxed and breathing easier. O2 titrated down to 6 L high flow nasal cannula without any issues. Blood sugar also checked. BS 345. Pt states that this is very high for him. But states that he will wait until morning for his insulin coverage. Charge nurse aware of all the changes. Will continue to monitor and report off to on-coming shift. VSS. Pt is currently free of any respiratory distress at this time.
[2021-07-07 06:45] LABS: Abs Immature Grans 0.29 10^3/uL (0.0-0.06); Absolute Basophil Count 0.05 10^3/uL (0.0-0.2); Absolute Eosinophil Count 0.38 10^3/uL (0.0-0.7); Absolute Neutrophil Count 15.02 10^3/uL (1.2-6.7); Basophils % 0.3; Eosinophils % 2.1; HCT 43.2 % (40.0-50.0); HGB 14.6 g/dL (13.5-17.5); Immature Grans % 1.6; Lymphocytes % 4.3; MCH 30.2 pg (27.0-33.0); MCHC 33.8 % (32.0-36.0); MCV 89.4 fL (80-95); MPV 10.8 fL (8.0-11.0); Monocytes % 9.3; Neutrophils % 82.4; Nucleated RBC 0 %; Platelet Count 278 10^3/uL (130-400); RBC 4.83 10^6/uL (4.36-5.78); RDW 12.6 % (11.8-14.1); RDW-SD 41.4 fL; WBC 18.23 10^3/uL (4.4-10.8)
[2021-07-07 06:55] LABS: Absolute Lymphocyte Count 0.78 10^3/uL (1.2-3.4); Anion Gap 9.3 mmol/L (3-11); BUN 21 mg/dL (7-18); CO2 24.7 mmol/L (21.0-32.0); CREATININE 1.2 mg/dL (0.70-1.30); Calcium 8.5 mg/dL (8.5-10.1); Chloride 97 mmol/L (98-107); Glucose 349 mg/dL (74-106); Magnesium 1.8 mg/dL (1.8-2.4); Potassium 4.9 mmol/L (3.5-5.1); Sodium 131 mmol/L (136-145)
[2021-07-07 07:11] LABS: Diff Comment Agrees w/ Instrument; RBC Morphology Normal
[2021-07-07] MEDS: Atorvastatin 40 MG TAB 80 MG PO (07:52)
[2021-07-07] MEDS: Lisinopril 5 MG TAB PO (07:52)
[2021-07-07] MEDS: Insulin Aspart 300 UNITS/3 ML PEN SC ×6 (08:11→21:41)
--- NOTE | 2021-07-07 11:31 | PGE_ITS ---
Date of Service Date of service: 07/07/21 Time of Service: 11:31 Assessment and Plan Assessment and plan (1) Viral pneumonitis: Status: Acute Assessment and plan: I think that based on his clinical hx, exam, CT findings and POCUS exam of his lungs, the he has an viral pneumonitis or an atypical pneumonia. He has no consolidations either on CT scan nor on POCUS exam of his lungs. He has diffuse bilateral B lines in all areas scanned (zones 1-12) which is consistent w/ an interstitial pattern. His BNP is normal and his echo was normal and his clinical exam was not consistent w/ fluid/volume overload. I will check for other respiratory viruses including parainfluenza, adenovirus, human metapneumovirus, rhinovirus (I ordered the expaned FORMULA TECHNICIAN swab for expanded respiratory viruses). I will put him on a short course of prednisone and cont. antibiotics for short course i.e. 5 days in the event that he developes superimposed bacterial infection. (2) CARMENCITA on CPAP: Status: Chronic Assessment and plan: I have asked the patient to have his family bring in his CPAP machine. In the interim, RT has set him up w/ one of our machines (3) Hypertension: Status: Chronic Assessment and plan: continue lisinopril. However, if his cough does not improve, then one needs to consider whether or not he has an OSIEL-I related cough. But this does not explain the hypoxemia/leukocytosis/diffuse B lines, etc. He has been on the lisinopril x 2 yrs, but has had a chronic non-productive cough for years. 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: with dedicated intermodal truck driver use Diabetes mellitus complication status: with ophthalmic complications Diabetes mellitus complication detail: with diabetic retinopathy Diabetic retinopathy severity: with unspecified retinopathy severity Diabetes mellitus macular edema: macular edema presence unspecified Laterality: unspecified laterality Qualified Code(s): E11.319 - Type 2 diabetes mellitus with unspecified diabetic retinopathy without macular edema; Z79.4 - skilled nursing (current) use of insulin (5) Respiratory failure with hypoxia: Status: Acute Assessment and plan: Patient is doing ok on nasal cannula; hopefully will be weaned off HFNC but he still needs his CPAP whenever he is sleeping d/t CARMENCITA. Qualifiers: Chronicity: acute Qualified Code(s): J96.01 - Acute respiratory failure with hypoxia Subjective Subjective Interval history since last seen: Patient is a middle-aged male with adult onset diabetes most type I has been on insulin for the last 30 years, essential hypertension, former smoker 3 pack/day who quit 6 years ago but has no known history of COPD who presents emergency department with nonproductive cough and shortness of breath not associate with any fever chills rigors or chest pain. Evaluation in the ER demonstrated elevated white count of 14,000 without anemia, troponin I levels were normal x2, proBNP was normal at 27, CMP was unremarkable except for mildly elevated glucose of 147 with normal LFTs and normal creatinine 1.0 with a BUN of 21 and normal anion gap. VBG showed no CO2 retention. CT of the chest showed no large vessel pulmonary emboli. Motion artifact limited evaluation of the peripheral pulmonary vessels. Lungs were clear with no pleural effusion. No mediastinal or hilar adenopathy was seen. Images through the upper abdomen showed unremarkable appearance of the liver spleen pancreas adrenals and kidneys. Patient gives a history that he started with a nonproductive cough that began last Sunday which is 4 days ago he was worried that he might have COVID-19 although he has had full vaccination series with Moderna and he has had his booster vaccine. He took a home antigen test for Covid on Sunday which was negative. He then saw his doctor on Sunday and had a PCR test which came back negative and the patient took another home antigen test on Sunday which was negative. Last night emergency department he had nasal swab for COVID-19 PCR test which was negative as well as RSV and influenza were negative. He has had no fever and no rigors and his cough is still unproductive although at times he will get very short of breath after a paroxysm of coughing. He was admitted last night with acute hypoxemic respiratory failure secondary to community-acquired pneumonia. Official read on CT scan did not show pneumonia however the freight brakeman medical communication specialist last night reviewed the CT scan and found increased interstitial thickening. He was started on azithromycin 500 mg daily along with Rocephin 1 g daily. He is also on as needed albuterol updrafts which she said seemed to help with his breathing last night. He was given a dose of Lasix last night as the admitting physician felt that he was somewhat hypervolemic. Exam Narrative Exam Narrative: Middle-aged white male who is able to talk in complete sentences and is currently on the phone with his family. HEENT. Oropharynx noninjected no exudate. TMs are intact without bulging and no bullae. Moderate amount of cerumen in his external ear canal without drainage. Nares moist with dry crusted yellow mucus no epistaxis Neck is supple there is no appreciable JVD no HJR. Normal carotid pulses no bruits no cervical adenopathy Lungs with fine dry bibasilar rales but no wheezing or rhonchi. Heart is regular rate and rhythm without murmur rub or gallop no thrill or heave Abdomen soft nondistended normal bowel sounds no palpable masses no organomegaly no bruits. Lower extremities without peripheral cyanosis or edema he has normal pedal pulses. Objective Last Vital Signs Temp 36.3 C L 07/07/21 07:57 Pulse 92 H 07/07/21 11:15 Resp 12 07/07/21 07:57 BP 119/64 07/07/21 07:57 Pulse Ox 95 07/07/21 07:57 Laboratory Results - last 24 hr 07/06/21 07/06/21 07/06/21 14:20 14:20 14:20 WBC 14.28 H RBC 4.97 Hgb 15.3 Hct 45.3 MCV 91.1 MCH 30.8 MCHC 33.8 RDW 12.7 Plt Count 299 MPV 10.8 Immature Gran % 1.1 Neutrophils % 77.5 Lymphocytes % 7.4 Monocytes % 10.4 Eosinophils % 3.2 Basophils % 0.4 Nucleated RBC % 0 Absolute Neutrophils 11.07 H Absolute Lymphocytes 1.06 L Absolute Monocytes 1.49 H Absolute Eosinophils 0.46 Absolute Basophils 0.06 RBC Morphology D-Dimer 1586 H VBG pH VBG pCO2 VBG pO2 VBG HCO3 VBG Total CO2 VBG O2 Saturation VBG Base Excess Sodium 135 L Potassium 4.2 Chloride 99 Carbon Dioxide 27.9 Anion Gap 8.1 BUN 21 H Creatinine 1.0 Estimated GFR/1.73 m2 >= 60.00 Glucose 147 H Calcium 9.0 Magnesium 1.9 Total Bilirubin 0.7 AST 14 L ALT 25 Alkaline Phosphatase 92 Troponin I < 50 NT-Pro-B Natriuret Pep 27 Total Protein 6.9 Albumin 3.3 L COVID-19 Source SARS-CoV-2 (PCR) Influenza Type A (PCR) Influenza Type B (PCR) RSV (PCR) 07/06/21 07/06/21 07/06/21 14:40 16:10 17:15 WBC RBC Hgb Hct MCV MCH MCHC RDW Plt Count MPV Immature Gran % Neutrophils % Lymphocytes % Monocytes % Eosinophils % Basophils % Nucleated RBC % Absolute Neutrophils Absolute Lymphocytes Absolute Monocytes Absolute Eosinophils Absolute Basophils RBC Morphology D-Dimer VBG pH 7.43 H VBG pCO2 43 VBG pO2 39 VBG HCO3 29 H VBG Total CO2 25 VBG O2 Saturation 74 VBG Base Excess 5 H Sodium Potassium Chloride Carbon Dioxide Anion Gap BUN Creatinine Estimated GFR/1.73 m2 Glucose Calcium Magnesium Total Bilirubin AST ALT Alkaline Phosphatase Troponin I < 50 NT-Pro-B Natriuret Pep Total Protein Albumin COVID-19 Source Nasopharynx SARS-CoV-2 (PCR) Negative Influenza Type A (PCR) Negative Influenza Type B (PCR) Negative RSV (PCR) Negative 07/07/21 07/07/21 06:22 06:22 WBC 18.23 H RBC 4.83 Hgb 14.6 Hct 43.2 MCV 89.4 MCH 30.2 MCHC 33.8 RDW 12.6 Plt Count 278 MPV 10.8 Immature Gran % 1.6 Neutrophils % 82.4 Lymphocytes % 4.3 Monocytes % 9.3 Eosinophils % 2.1 Basophils % 0.3 Nucleated RBC % 0 Absolute Neutrophils 15.02 H Absolute Lymphocytes 0.78 L Absolute Monocytes 1.70 H Absolute Eosinophils 0.38 Absolute Basophils 0.05 RBC Morphology Normal D-Dimer VBG pH VBG pCO2 VBG pO2 VBG HCO3 VBG Total CO2 VBG O2 Saturation VBG Base Excess Sodium 131 L Potassium 4.9 Chloride 97 L Carbon Dioxide 24.7 Anion Gap 9.3 BUN 21 H Creatinine 1.2 Estimated GFR/1.73 m2 >= 60.00 Glucose 349 H D Calcium 8.5 Magnesium 1.8 Total Bilirubin AST ALT Alkaline Phosphatase Troponin I NT-Pro-B Natriuret Pep Total Protein Albumin COVID-19 Source SARS-CoV-2 (PCR) Influenza Type A (PCR) Influenza Type B (PCR) RSV (PCR)
[2021-07-07 12:45] LABS: Lab Add On Test DONE
[2021-07-07] MEDS: Pantoprazole 40 MG TABCR PO (13:02)
[2021-07-07] MEDS: predniSONE 20 MG TAB 40 MG PO (13:02)
[2021-07-07] MEDS: Loratidine 10 MG TAB PO (13:02)
[2021-07-07] MEDS: Benzonatate 200 MG CAP PO ×2 (13:04→19:38)
[2021-07-07 13:42] LABS: Procalcitonin 0.1 ng/mL
--- NOTE | 2021-07-07 14:03 | PDOC.CMIN ---
- If Service Date Differs Date of service: 07/07/21 Time of Service: 14:03 Care Management Initial Assess REASON FOR HOSPITALIZATION:: Respiratory failure with hypoxia PAST MEDICAL HISTORY/PAST SURGICAL HISTORY:: All Active Problems (Updated 07/06/21 @ 21:16 by Marybel Lopez MD). CARMENCITA on CPAP (Chronic). Former heavy tobacco smoker (Acute). Hypertension (Chronic). Diabetes mellitus (Chronic). Orthopnea (Acute). Pneumonia (Acute). Respiratory failure with hypoxia (Acute). Cough (Acute). Esophagitis (Acute 04/09/17). 04/09/17 SEVERE WITH ULCER. Gastritis (Acute 04/09/17). Hyperlipidemia (Acute). Medical History (Updated 07/06/21 @ 21:16 by Marybel Lopez MD). Cellulitis of toe. Diabetes mellitus type 1 (10/24/12). continue with endo. Diabetic retinopathy of both eyes (~06/10/20). MODERATE B/L. DM (diabetes mellitus). Elevated blood pressure reading without diagnosis of hypertension. GERD (gastroesophageal reflux disease). Hypoxia. Impingement syndrome of left shoulder. CARMENCITA (obstructive sleep apnea). uses cpap. Rash. Shoulder pain, right. Subacromial bursitis. Tear of right rotator cuff. Tendinosis of rotator cuff. Tinea corporis. Tinea versicolor. Trigger index finger of left hand. s/p left index finger trigger release. DOS: 09/07/20. Umbilical hernia. Surgical History (Updated 07/06/21 @ 20:35 by Marybel Lopez MD). Colonoscopy - MAC (04/09/17). DJD of AC (acromioclavicular) joint. S/P distal clavicle excision/acromioplasty: 01/26/2020. EGD - MAC (04/09/17) PREVIOUS FUNCTIONAL STATUS/SOCIAL/FAMILY SUPPORTS:: Chas lives in [place] with his Corrine. 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 He uses a CPAP machine at night. He is diabetic and has a Free Style Allen Device on his left arm that he routinely checks every 1-2 hours. CURRENT FUNCTIONAL STATUS:: Chas was sitting up in bed visiting with his Corrine when CM met with him. He is wearing his Freestyle Allen device on his left arm and checking his BS frequently. He is quite anxious about his BS being elevated and reports that when his BS goes above 300 he develops chest pain and gets angry and tired. He is on steroids and expecting it to be elevated. The insulin he's been using during this admission is different than what he uses at home. He would rather use his home insulin, which his brought to the pharmacy. His also brought his CPAP from home. He is currently 95% on 2L NC and sitting upright in his bed. He shares that he hasn't been able to lay flat for several days. ADVANCE DIRECTIVES:: None on file, Copy provided to patient. Has patient been provided with info about the portal/API?: Yes Did the patient sign up for the portal?: Yes CODE STATUS:: Full Code INSURANCE COVERAGE / FINANCIAL ISSUES:: BC BS CURRENT HOME/COMMUNITY SERVICES/EQUIPMENT:: Has a CPAP machine through [facility] PRIMARY CARE PHYSICIAN:: Dr. Jay Gomez [facility] POTENTIAL DISCHARGE NEEDS:: Follow up appointments, [facility] if indicated PATIENT/FAMILY EDUCATION NEEDS:: Review discharge instructions, limitations and plan to follow up with community providers. ask me three. TRANSPORTATION:: via private vehicle located in the parking lot. PLAN:: Chas requires monitoring and treatment for repiratory failure. Hi-Flow O2 will be weaned as tolerated. He is currently 95% on 2L NC. His brought in his Cpap machine. He is on steroids and ABX. Anticipate, Chas will be discharged home with no new services when medically ready with new Home O2 if indicated. Follow up with community providers and discharge plan of care as prescribed. CM will support discharge planning needs.
--- NOTE | 2021-07-07 15:08 | CHAPLAIN ---
I met Chas with Chas and his . Chas said he is dealing with viral pneumonia. He uses oxygen and is diabetic, so he has a lot of medical issues to deal with, he said. His accepted a cup of coffee. I will visit again.
--- NOTE | 2021-07-07 16:23 | RESPIRATORY ---
HOME CPAP CHECKED
[2021-07-07] MEDS: Azithromycin 250 MG TAB 500 MG PO (19:37)
[2021-07-07] MEDS: cefTRIAXone 1 GM/50 ML BAG IVPB (19:37)
[2021-07-07] MEDS: Enoxaparin 40 MG/0.4 ML SYR SC (19:38)
[2021-07-07] MEDS: Normal Saline Flush 10 ML SYR IVP (19:40)
[2021-07-07] MEDS: Famotidine 20 MG TAB 40 MG PO (21:40)
[2021-07-07] MEDS: Insulin Glargine 300 UNITS/3 ML PEN 30 UNITS SC (21:40)
[2021-07-08] VITALS (7 sets, daily range): BP systolic 111–139; BP diastolic 60–67; PULSE 74–106; RESP 16–18; TEMP 36.2–36.4; O2SAT 92–96
[2021-07-08 06:58] LABS: Abs Immature Grans 0.28 10^3/uL (0.0-0.06); Absolute Lymphocyte Count 1.56 10^3/uL (1.2-3.4); Basophils % 0.3; Eosinophils % 4.4; HCT 41.1 % (40.0-50.0); HGB 13.9 g/dL (13.5-17.5); Immature Grans % 1.5; Lymphocytes % 8.6; MCH 30.2 pg (27.0-33.0); MCHC 33.8 % (32.0-36.0); MCV 89.2 fL (80-95); MPV 10.6 fL (8.0-11.0); Monocytes % 7.5; Neutrophils % 77.7; Nucleated RBC 0 %; Platelet Count 297 10^3/uL (130-400); RBC 4.61 10^6/uL (4.36-5.78); RDW 12.4 % (11.8-14.1); RDW-SD 40.6 fL; WBC 18.15 10^3/uL (4.4-10.8)
[2021-07-08 07:01] LABS: Absolute Basophil Count 0.05 10^3/uL (0.0-0.2); Absolute Monocyte Count 1.36 10^3/uL (0.1-0.8)
[2021-07-08 07:20] LABS: Anion Gap 10.2 mmol/L (3-11); BUN 27 mg/dL (7-18); CO2 23.8 mmol/L (21.0-32.0); CREATININE 1.1 mg/dL (0.70-1.30); Calcium 8.8 mg/dL (8.5-10.1); Chloride 97 mmol/L (98-107); Glucose 341 mg/dL (74-106); Potassium 4.7 mmol/L (3.5-5.1); Sodium 131 mmol/L (136-145)
[2021-07-08] MEDS: Lisinopril 5 MG TAB PO (07:27)
[2021-07-08] MEDS: Atorvastatin 40 MG TAB 80 MG PO (07:27)
[2021-07-08] MEDS: Loratidine 10 MG TAB PO (07:27)
[2021-07-08] MEDS: Benzonatate 200 MG CAP PO ×2 (07:27→13:38)
[2021-07-08] MEDS: Pantoprazole 40 MG TABCR PO (07:28)
[2021-07-08] MEDS: Insulin Aspart 300 UNITS/3 ML PEN SC ×4 (07:28→12:14)
[2021-07-08] MEDS: predniSONE 20 MG TAB 40 MG PO (07:42)
[2021-07-08] MEDS: Insulin NPH-Human 300 UNITS/3 ML PEN 20 UNIT SC (08:54)
--- NOTE | 2021-07-08 10:06 | PDOC.CMPRO ---
- If Service Date Differs Date of service: 07/08/21 Time of Service: 10:06 Care Management Progress Note S/O: Chas requires monitoring and treatment for respiratory failure. He is on steroids and ABX. Hi-Flow O2 will be weaned as tolerated. He is currently 94% on 3L NC. His brought his insulin from home, provider and pharmacy aware. A: 56 year old male admitted to [facility] on 07/06/21 for respiratory failure. P: Chas requires monitoring and treatment for respiratory failure. Hi-Flow O2 will be weaned as tolerated. He is using his Cpap machine from home. Anticipate, Chas will be discharged home with no new services when medically ready with new Home O2 if indicated. Follow up with community providers and discharge plan of care as prescribed. CM will support discharge planning needs.
[2021-07-08 12:44] LABS: Adenovirus DNA Result Negative (Negative); Metapneumovirus RNA Result Negative (Negative); Parainfluenza Type1 RNA Result Negative (Negative); Parainfluenza Type2 RNA Result Negative (Negative); Parainfluenza Type3 RNA Result Negative (Negative); Parainfluenza Type4 RNA Result Negative (Negative); Rhinovirus RNA Result Negative (Negative)
--- NOTE | 2021-07-08 15:40 | DSE_ITS ---
Date of service: 07/08/21 Time of Service: 15:40 DS: Diagnosis Discharge Diagnosis (1) Viral pneumonitis: Status: Acute Asessment and Plan: Diagnostics on admission were not suggestive of bacterial pneumonia. He was treated for an atypical pneumonia. Given his course and rapid resolution is presumed it was a viral pneumonia. There are viral studies pending. (2) CARMENCITA on CPAP: Status: Chronic Asessment and Plan: He received his CPAP during this admission. (3) Hypertension: Status: Chronic Asessment and Plan: Continue his usual blood pressure meds (4) Diabetes mellitus: Status: Chronic Asessment and Plan: Blood sugars ran high this admission due to the prednisone. He was treated with NPH insulin as a supplement while on the prednisone. (5) Respiratory failure with hypoxia: Status: Acute Asessment and Plan: His initial presentation was suggestive of respiratory failure. He responded to BiPAP and usual measures. He did not require intubation. Discharge Plan Disposition Patient Disposition: HOME Condition: Stable Discharge Details Reason For Visit: Respiratory Failure Admit Date/Time: 07/06/21 18:00 Admit Provider: Christopher Jacob Attending Provider: Christopher Jacob Primary Care Provider: Jay Gomez Hospital Course Hospital Course: 56-year-old man presented with extreme shortness of breath. He had a cough with sputum production. He was concerned about Covid. He had a total of 4 tests that were negative. He was placed on BiPAP in the ED. Treatment in the ED allowed weaning off of BiPAP to nasal cannula oxygen. During this stay he received CT of chest which showed no PE E or infiltrate. He was on IV ceftriaxone and p.o. azithromycin. Lab studies for Legionella, mycoplasma, extended viral panel are pending. He had an echocardiogram that she was negative. His BNP was negative. He improved markedly over the ensuing 48 hours. His blood sugars were running high secondary to prednisone 40 mg daily. He is discharged on azithromycin to complete a 5-day course for possible atypical pneumonia. Home Meds and New Rx's Prescriptions: New azithromycin 250 mg Tablet 250 mg PO QPM Qty: 3 RF: 0 Continued insulin lispro [Humalog U-100 Insulin] 100 UNIT/1 ML solution 2 - 15 units SQ AC RF: 0 Lantus Solostar U-100 Insulin 100 unit/mL (3 mL) insulin pen 24 unit SC HS RF: 0 atorvastatin 40 mg tablet 80 mg PO QHS RF: 0 sildenafil 100 mg tablet 50 - 100 mg PO DAILY PRN (Reason: sexual activity) Qty: 30 RF: 2 lisinopril 5 mg Tablet 5 mg PO HS RF: 0 calcium carbonate 500 MG tablet,chewable 500 mg PO PRN PRNRF: 0 Discharge Instructions Instructions: Community Acquired Pneumonia (DC) Activity:: Activity as Tolerated Equipment/Supplies:: No Equipment Needed Diet:: Carb Counting Discharge Orders Discharge Orders: Discharge Order (Routine); Ordered 07/08/21 Ordered By: Christopher Jacob DS: Summary Summary Time spent discussing smoking cessation with patient: 3 to 10 minutes Time Spent with Patient providing and/or coordinating discharge services: Greater than 30 minutes Status at Discharge Functional status at discharge: independent ambulation Overall status at discharge: patient is back to baseline Mental Status: mental status grossly normal Speech and Movement: speech and movement normal Mood: congruent mood Affect: normal affect Exam Narrative Exam Narrative: On exam he was smiling and in no apparent distress. His posterior lung exam sounded clear on the right and left. There are no significant wheezes. No areas of consolidation were detected. His heart sounds were strong and regular. He was observed up and ambulating without any difficulty. He was not requiring supplemental oxygen. His sat was 95%. Psych Mental Status: mental status grossly normal Speech and Movement: speech and movement normal Mood: congruent mood Affect: normal affect DS: Data Vitals/I&O Vitals and I&O: Vital Signs Temperature 36.4 C L 07/08/21 12:21 Temperature Source Tympanic 07/08/21 12:21 Pulse 90 07/08/21 12:21 Pulse Rhythm Regular 07/08/21 09:31 Pulse 99 H 07/06/21 18:46 Respiratory Rate 18 07/08/21 12:21 Respiratory Effort Non-Labored 07/08/21 09:31 Respiratory Depth Normal 07/08/21 09:31 Respiratory Pattern Normal 07/08/21 09:31 Blood Pressure 111/60 07/08/21 12:21 Blood Pressure Mean 73 07/06/21 18:46 Blood Pressure Position Sitting 07/06/21 13:46 Pulse Oximetry 95 07/08/21 12:21 Oxygen Delivery Method Room Air 07/08/21 12:21 Oxygen Flow Rate 0 07/08/21 12:21 Fraction of Inspired Oxygen (FIO2) 45 07/06/21 16:11 Pain Level 0 07/07/21 19:45 Comment 07/08/21 03:21 Intake & Output 07/07/21 07/08/21 07/08/21 23:59 11:59 23:59 Intake Total 180 / 180 Balance 180 / -195 Intake: Oral 180 / 180 Other: Urine Appearance Clear Clear Comment pT voids independent in toilet Voiding Methods Toilet Data Completed and Pending Labs on day of discharge: Labs from last 24 hours 07/08/21 07/08/21 07/07/21 06:45 06:45 12:50 WBC 18.15 H RBC 4.61 Hgb 13.9 Hct 41.1 MCV 89.2 MCH 30.2 MCHC 33.8 RDW 12.4 Plt Count 297 MPV 10.6 Immature Gran % 1.5 Neutrophils % 77.7 Lymphocytes % 8.6 Monocytes % 7.5 Eosinophils % 4.4 Basophils % 0.3 Nucleated RBC % 0 Absolute Neutrophils 14.10 H Absolute Lymphocytes 1.56 Absolute Monocytes 1.36 H Absolute Eosinophils 0.80 H Absolute Basophils 0.05 Sodium 131 L Potassium 4.7 Chloride 97 L Carbon Dioxide 23.8 Anion Gap 10.2 BUN 27 H Creatinine 1.1 Estimated GFR/1.73 m2 >= 60.00 Glucose 341 H Calcium 8.8 Adenovirus DNA Negative Human Metapneumovir RNA Negative Parainfluenza 1 (PCR) Negative Parainfluenza 2 (PCR) Negative Parainfluenza 3 (PCR) Negative Parainfluenza 4 (PCR) Negative Resp Viral Spec Desc Not Applicable Rhinovirus (PCR) Negative Preliminary micro results at discharge 07/07/21 13:10 Sputum Culture - Preliminary Sputum Normal Deepali 07/06/21 20:35 Blood Culture - Preliminary Blood NO GROWTH 24 HOURS 07/06/21 20:25 Blood Culture - Preliminary Blood NO GROWTH 24 HOURS PFSH All Active Problems Viral pneumonitis (Acute) CARMENCITA on CPAP (Chronic) Former heavy tobacco smoker (Acute) Hypertension (Chronic) Diabetes mellitus (Chronic) Orthopnea (Acute) Pneumonia (Acute) Respiratory failure with hypoxia (Acute) Cough (Acute) Esophagitis (Acute 04/09/17) 04/09/17 SEVERE WITH ULCER Gastritis (Acute 04/09/17) Hyperlipidemia (Acute) Medical History Cellulitis of toe Diabetes mellitus type 1 (10/24/12) continue with endo Diabetic retinopathy of both eyes (~06/10/20) MODERATE B/L DM (diabetes mellitus) Elevated blood pressure reading without diagnosis of hypertension GERD (gastroesophageal reflux disease) Hypoxia Impingement syndrome of left shoulder CARMENCITA (obstructive sleep apnea) uses cpap Rash Shoulder pain, right Subacromial bursitis Tear of right rotator cuff Tendinosis of rotator cuff Tinea corporis Tinea versicolor Trigger index finger of left hand s/p left index finger trigger release DOS: 09/07/20 Umbilical hernia Surgical History Colonoscopy - MAC (04/09/17) DJD of AC (acromioclavicular) joint S/P distal clavicle excision/acromioplasty: 01/26/2020 EGD - MAC (04/09/17) Family History Mother No problems noted. Father Alcohol abuse Heart disease Stroke Brother Heart disease Stroke Son , 25 Substance abuse Social History Smoking/Tobacco Use Status: Former Tobacco Use tobacco type: cigarettes Quit Date: 06/14/16 Tobacco: How many years used: 35 Smoking risk assessment performed?: Yes Alcohol Intake: current Alcohol Intake frequency: holidays/special occasions only Alcohol type: beer Drug use: Never Substance use type: does not use Caregiver/Support person: No Household members: spouse and adopted family Housing: house Communication Needs: None Do you need help understanding health information?: Rarely Pets and animals: Yes Pets and animals: cat(s) and dog(s) Sexually active: Yes Do you think of yourself as: straight/heterosexual Current gender identity: male What is your relationship status?: How often do you talk on the phone with friends or family?: once per week How often do you get together with friends or relatives?: once per week How often do you attend sabianist or anabaptist services?: decline to answer Do you belong to any clubs or organized social groups?: no Panel score (0-1 are the most socially isolated patients): 1 What type of physical activity do you participate in: walking Duration: 45-60 minutes/day Frequency: daily Rachele/Baptist: None Special rachele needs: No Seatbelt use: always Helmet use: No Drive intox or ride w/intox driver license technician: No Do you feel safe at home: Yes Do you feel safe in your relationship?: Yes Victim of physical abuse: No Victim of emotional abuse: No Victim of sexual abuse: No Would you like helpful sources: No
--- NOTE | 2021-07-08 16:03 | PDOC.CMDIS ---
- If Service Date Differs Date of service: 07/08/21 Time of Service: 16:03 LACE Index Scoring Tool - Questions: Length of Stay (in days): 2 Acuity (Admit via E.D.?): Yes Comorbidities: Diabetes w/o Complication E.D. Visits: 1 - Answers: Total Score: 7 Risk of Readmission: Low Risk Care Management Discharge Reason for Hospitalization: Respiratory failure with hypoxia Discharge Plan: Discharge home via private vehicle with no new services. He will take medications as prescribed and complete course of Azythromycin. Chas will follow up with his PCP on 07/13/21 @ 3:00pm. Patient/Family Education Needs: Review discharge instructions, limitations and plan to follow up with community providers. ask me three.
[2021-07-08 23:09] LABS: Legionella Ag Detection Urine Negative (Negative)
[2021-07-10 22:46] LABS: Mycoplasma Pneumoniae PCR Negative; Specimen source Sputum
[2021-07-11 15:56] LABS: Streptococcus Pneumoniae Ag, U Negative (Negative)
== END 2021-07-08 16:24 | disposition home or self-care (01) | DRG 193 ==
LOC: ER 18:03 → MS 19:20
PROVIDERS: Internal Medicine; Student in an Organized Health Care Education/Training Program; Admitting Provider Family Medicine; Emergency Provider Student in an Organized Health Care Education/Training Program; PCP Family Medicine; Visit Provider Family Medicine
DX: J12.9 Viral pneumonia, unspecified (principal); J96.01 Acute respiratory failure with hypoxia; Z79.4 Long term (current) use of insulin; E78.5 Hyperlipidemia, unspecified; I10 Essential (primary) hypertension; E87.70 Fluid overload, unspecified; K20.80 Other esophagitis without bleeding; K29.50 Unspecified chronic gastritis without bleeding; E11.65 Type 2 diabetes mellitus with hyperglycemia; Z87.891 Personal history of nicotine dependence; G47.33 Obstructive sleep apnea (adult) (pediatric); E11.319 Type 2 diabetes mellitus with unspecified diabetic retinopathy without macular edema; K21.9 Gastro-esophageal reflux disease without esophagitis
CPT/HCPCS: 36410; 36415; 71275; 80048; 80053; 82805; 84145; 87040; 87449; 87632; 87637; 93005; 93306; 94640; 96365; 96366; 96367; 99291; J1650; 83735; 83880; 84484; 85025; 85379; 86140; 87070; 87205; 87581; 87899; 93010; 99223; 99232; 99239; J0456; J0696; J1941; J3490; J7512; J7613

== ENCOUNTER 2021-07-13 18:29 | Outpatient (REF) | payer BC, SELFPAY ==
[2021-07-15 12:41] LABS: Chlamydia Result Negative (Negative); GC Result Negative (Negative)
== END 2021-07-13 18:30 | disposition home or self-care (01) ==
LOC: LBN 18:29
PROVIDERS: PCP Family Medicine; Visit Provider Family Medicine
DX: Z20.2 Contact with and (suspected) exposure to infections with a predominantly sexual mode of transmission (principal)
CPT/HCPCS: 87491; 87591

== ENCOUNTER 2021-07-18 01:49 | Outpatient (CLI) | payer BC, SELFPAY ==
[2021-07-19 10:56] LABS: HIV-1/2 Ag & Ab Screen Negative (Negative)
[2021-07-19 11:02] LABS: Hepatitis C Ab w Rflx HCV PCR Negative (Negative)
== END 2021-07-18 01:50 | disposition home or self-care (01) ==
LOC: LBO 01:50
PROVIDERS: PCP Family Medicine; Visit Provider Family Medicine
DX: Z00.00 Encounter for general adult medical examination without abnormal findings (principal); Z11.59 Encounter for screening for other viral diseases; Z11.4 Encounter for screening for human immunodeficiency virus [HIV]
CPT/HCPCS: 36415; 86803; 87389

== ENCOUNTER 2022-02-18 20:05 | Emergency (ER) | payer BC, SELFPAY ==
[2022-02-18 20:09] VITALS: BP 164/66; PULSE 79; RESP 16; TEMP 36.7; O2SAT 94
--- NOTE | 2022-02-18 20:30 | DI.RAD_ITS ---
Exam(s) XR TOE LT FIFTH EXAM: XR TOE LT FIFTH CLINICAL HISTORY: stubbed left fifth toe on chair. TECHNIQUE: 2D digital imaging was performed. COMPARISON: CR RIGHT FOOT COMPLETE from 06/20/2010 FINDINGS: 3 views No evidence of obvious acute fracture nor dislocation. However, on the lateral view there is a subtl e linear lucency in the distal phalanx of the 5th toe. This may just represent nutrient artery canal but cannot exclude subtle nondisplaced fracture. No radiopaque foreign body. IMPRESSION: Possible subtle nondisplaced fracture of the distal phalanx of the 5th toe. DATA REPOSITORY: RADIATION DOSE DELIVERED:
--- NOTE | 2022-02-18 20:37 | W.ED.GENAD ---
Discharge Plan Disposition Patient Disposition: HOME Condition: Stable Discharge Details Chief Complaint: Orthopedic Clinical Impression: Fracture of toe Primary Care Provider: Jay Gomez ED Provider: Mayur Hernandez Home Meds and New Rx's Prescriptions: No Action famotidine 20 mg tablet 20 mg PO DAILY PRN (Reason: heartburn) Qty: 90 3RF Lyumjev KwikPen U-100 Insulin 100 unit/mL insulin pen 1 sliding scale dose subcut USEASDIRECTD Rx Instructions: 4-15 units sc tid albuterol sulfate [Ventolin HFA] 90 mcg/actuation HFA aerosol inhaler 2 puff inhalation QID PRN (Reason: shortness of breath or wheezing) Qty: 6.7 1RF insulin glargine [Lantus Solostar U-100 Insulin] 100 unit/mL (3 mL) insulin pen 24 unit SC HS atorvastatin 40 mg tablet 80 mg PO QHS sildenafil 100 mg tablet 50 - 100 mg PO DAILY PRN (Reason: sexual activity) Qty: 30 2RF Rx Instructions: administer 30 minutes to 4 hours before activity doxepin 10 mg capsule 10 mg PO BID Qty: 60 3RF ketoconazole 2 % cream 1 applic TP BID PRN (Reason: tinea versicolor) Qty: 30 1RF Rx Instructions: apply to rash on back as needed fluconazole [Diflucan] 100 mg tablet 300 mg PO QWEEK PRN (Reason: tinea versicolor) Qty: 6 2RF lisinopril 5 mg Tablet 5 mg PO HS calcium carbonate 500 MG tablet,chewable 500 mg PO PRN PRN (DME) pen needle, diabetic [CareTouch Pen Needle] 31 gauge x 3/16 needle See Rx Instructions .ROUTE .MEDSUPPLY Qty: 50 0RF Rx Instructions: As directed Discharge Instructions Instructions: Toe Fracture (ED) Additional Instructions: Please ice and elevate toe. Use ibuprofen and/or acetaminophen as needed for pain. Please return for any worsening symptoms or for signs of poor healing. Medical Decision Making 56-year-old male history of diabetes presents after contusion to the left fifth digit of foot, sustained after stubbing toe on high chair this morning, ambulatory without assistance, afebrile nontoxic, neurovascular exam of foot intact, DP pulse intact sensation intact, localized ecchymosis to toe, no nailbed injury, no skin breakdown. No signs of infection. Consider likely simple contusion versus small fracture versus less likely dislocation. At this time patient does not want any medication for his toe was instructed to ice elevate and take ibuprofen and/or acetaminophen at home. Will obtain x-ray likely home with follow-up as needed 21: 40 patient resting comfortably no acute distress. Possible nondisplaced fracture of distal phalanx of left toe. Patient comfortable in shoe. We will continue with ice elevation and anti-inflammatory as needed. Instructed return for any worsening symptoms or poor healing. HPI General Date/Time Provider Initiated Documentation: 02/18/22 20:26. HPI Narrative: 56-year-old male history of diabetes presents several hours after stubbing his left pinky toe on a highchair this morning, endorses discomfort only when the toe is touched, wanted to have his foot examined as he is a diabetic. Is able to walk on the foot without issue. Related Data Home Medications Medication Instructions Recorded Confirmed calcium carbonate 200 mg calcium 500 mg PO PRN PRN 10/09/16 12/13/21 (500 mg) chewable tablet insulin glargine 100 unit/mL (3 24 unit subcut HS 08/19/19 12/13/21 mL) subcutaneous pen (Lantus Solostar U-100 Insulin) lisinopril 5 mg tablet 5 mg PO HS 09/07/20 12/13/21 atorvastatin 40 mg tablet 80 mg PO QHS 10/08/20 12/13/21 sildenafil 100 mg tablet 50 - 100 mg PO DAILY PRN sexual 05/20/21 12/13/21 activity #30 tabs pen needle, diabetic 31 gauge x #50 ea 07/09/21 12/13/21/16 (CareTouch Pen Needle) albuterol sulfate 90 mcg/actuation 2 puff inhalation QID PRN 07/13/21 12/13/21 aerosol inhaler (Ventolin HFA) shortness of breath or wheezing #6.7 grams insulin lispro-aabc 100 unit/mL 1 sliding scale dose subcut 07/13/21 12/13/21 subcutaneous pen (Lyumjuaquin SneedikPen USEASDIRECTD U-100 Insulin) famotidine 20 mg tablet 20 mg PO DAILY PRN heartburn #90 07/20/21 12/13/21 tabs doxepin 10 mg capsule 10 mg PO BID #60 caps 11/07/21 12/13/21 ketoconazole 2 % topical cream 1 applic topical BID PRN tinea 11/10/21 12/13/21 versicolor #30 grams fluconazole 100 mg tablet 300 mg PO QWEEK PRN tinea 11/12/21 12/13/21 (Diflucan) versicolor #6 tabs Previous Rx's Medication Instructions Recorded sildenafil 100 mg tablet 50 - 100 mg PO DAILY PRN sexual 05/20/21 activity #30 tabs pen needle, diabetic 31 gauge x #50 ea 07/09/2108/17 (CareTouch Pen Needle) albuterol sulfate 90 mcg/actuation 2 puff inhalation QID PRN 07/13/21 aerosol inhaler (Ventolin HFA) shortness of breath or wheezing #6.7 grams famotidine 20 mg tablet 20 mg PO DAILY PRN heartburn #90 07/20/21 tabs doxepin 10 mg capsule 10 mg PO BID #60 caps 11/07/21 ketoconazole 2 % topical cream 1 applic topical BID PRN tinea 11/10/21 versicolor #30 grams fluconazole 100 mg tablet 300 mg PO QWEEK PRN tinea 11/12/21 (Diflucan) versicolor #6 tabs Allergies Allergy/AdvReac Type Severity Reaction Status Date / Time No Known Allergies Allergy Verified 02/18/22 20:15 General Stated Complaint: Orthopedic SHIVANI: 4 Review of Systems Narrative: Review of Systems Constitutional: negative Eyes: negative ENT: negative Cardiovascular: negative Respiratory: negative Gastrointestinal: negative : negative Musculoskeletal: Left pinky toe pain Skin: negative Neurologic: negative Psych: negative PFSH All Active Problems Fracture of toe (Acute) Tinea versicolor (Acute) Pruritic condition (Acute) Adjustment disorder with depressed mood (Acute) DM (diabetes mellitus) (Acute) Viral pneumonitis (Acute) CARMENCITA on CPAP (Chronic) Former heavy tobacco smoker (Acute) Medical History Cellulitis of toe Cough Diabetes mellitus Diabetes mellitus type 1 (10/24/12) continue with endo Diabetic retinopathy of both eyes (~06/10/20) MODERATE B/L Elevated blood pressure reading without diagnosis of hypertension Esophagitis (04/09/17) 04/09/17 SEVERE WITH ULCER Gastritis (04/09/17) GERD (gastroesophageal reflux disease) Hyperlipidemia Hypertension Hypoxia Impingement syndrome of left shoulder Orthopnea CARMENCITA (obstructive sleep apnea) uses cpap Pneumonia Rash Respiratory failure with hypoxia Shoulder pain, right Subacromial bursitis Tear of right rotator cuff Tendinosis of rotator cuff Tinea corporis Tinea versicolor Trigger index finger of left hand s/p left index finger trigger release DOS: 09/07/20 Umbilical hernia Surgical History Colonoscopy - MAC (04/09/17) DJD of AC (acromioclavicular) joint S/P distal clavicle excision/acromioplasty: 01/26/2020 EGD - MAC (04/09/17) Family History (Updated 07/22/21 @ 11:48 by Tessy Jerez) Mother Breast cancer Father Alcohol abuse Heart disease Stroke Depression Hyperlipidemia Brother Heart disease Stroke Alcohol abuse Son , 25 Substance abuse Depression Substance use disorder Sister Asthma Social History (Updated 07/22/21 @ 11:44 by Tessy Jerez) Smoking/Tobacco Use Status: Former Tobacco Use tobacco type: cigarettes Quit Date: 06/14/15 Tobacco: How many years used: 35 Second Hand Exposure: Yes Smoking risk assessment performed?: Yes Alcohol Intake: current Alcohol Intake frequency: holidays/special occasions only Alcohol type: beer Drug use: Never Substance use type: does not use Caregiver/Support person: No Household members: spouse and adopted family Housing: house Communication Needs: None Do you need help understanding health information?: Rarely Pets and animals: Yes Pets and animals: dog(s) Sexually active: Yes Do you think of yourself as: straight/heterosexual Current gender identity: male What is your relationship status?: How often do you talk on the phone with friends or family?: once per week How often do you get together with friends or relatives?: once per week How often do you attend yazidi or congregational services?: decline to answer Do you belong to any clubs or organized social groups?: no Panel score (0-1 are the most socially isolated patients): 1 What type of physical activity do you participate in: none Duration: 45-60 minutes/day Frequency: daily Rachele/Congregation: None Special rachele needs: No Seatbelt use: always Helmet use: No Drive intox or ride w/intox route delivery driver: No Do you feel safe at home: Yes Do you feel safe in your relationship?: Yes Victim of physical abuse: No Victim of emotional abuse: No Victim of sexual abuse: No Would you like helpful sources: No Exam Narrative Exam Narrative: Physical Examination General: alert, awake, cooperative, resting comfortably, no acute distress HEENT: normocephalic, atraumatic; PERRL, EOM intact, conjunctiva normal; no nasal discharge; moist mucous membranes, oral and pharyngeal mucosa normal, tolerating secretions Neck: supple, trachea midline; full ROM Chest: normal to inspection Respiratory: normal respiratory effort, speaking in full sentences, clear to auscultation, no wheezing, rales or rhonchi Cardiac: regular rate, regular rhythm, S1S2 intact, no murmurs rubs or gallops GI: abdomen soft, non-tender, non-distended; no palpable mass or hepatosplenomegaly Skin: no lesions, rashes or trauma appreciated Neuro: AAOx3, normal speech, moving all extremities Extremities: Localized ecchymosis to left fifth digit of foot, no nailbed disruption, no evidence of laceration, DP pulse intact, no midfoot discomfort on palpation, patient ambulatory without assistance; warm well perfused extremity no sign of infection Psych: Appropriate mood and affect Course Vital Signs Vital signs: Vital Signs Temperature 36.7 C 02/18/22 20:09 Pulse 79 02/18/22 20:09 Respiratory Rate 16 02/18/22 20:09 Blood Pressure 164/66 H 02/18/22 20:09 Pulse Oximetry 94 02/18/22 20:09 Temperature 36.7 C 02/18/22 20:09 Temperature Source Temporal Artery Scan 02/18/22 20:09 Pulse 79 02/18/22 20:09 Respiratory Rate 16 02/18/22 20:09 Respiratory Effort Non-Labored 02/18/22 20:12 Blood Pressure 164/66 H 02/18/22 20:09 Blood Pressure Position Sitting 02/18/22 20:09 Pulse Oximetry 94 02/18/22 20:09 Oxygen Delivery Method Room Air 02/18/22 20:09 Oxygen Flow Rate 0 02/18/22 20:09 Pain Level 2 02/18/22 20:12
--- NOTE | 2022-02-18 21:33 | DI.VRAD_ITS ---
PROCEDURE INFORMATION: Exam: XR Left Toe(s) Exam date and time: 02/18/2022 8:45 PM Age: 56 years old Clinical indication: Other: Stubbed fifth toe on chair TECHNIQUE: Imaging protocol: Radiologic exam of the Left toes. Views: Minimum 2 views. COMPARISON: MRI L LOWER JOINT WO CONT 09/26/2016 7:54 PM FINDINGS: Bones/joints: Small lucency through the base of the distal phalanx of the 5th digit, cannot rule out a small nondisplaced fracture. Soft tissues: Grossly unremarkable. IMPRESSION: Small lucency through the base of the distal phalanx of the 5th digit, cannot rule out a nondisplaced fracture. Dictated and Authenticated by: Tej Guardado MD. Ordering:AZEEM Merchant MD
== END 2022-02-18 22:19 | disposition home or self-care (01) ==
PROVIDERS: Emergency Provider Emergency Medicine; PCP Family Medicine
DX: S92.535A Nondisplaced fracture of distal phalanx of left lesser toe(s), initial encounter for closed fracture (principal); W22.8XXA Striking against or struck by other objects, initial encounter; E10.9 Type 1 diabetes mellitus without complications; I10 Essential (primary) hypertension; Z87.891 Personal history of nicotine dependence
CPT/HCPCS: 99283; 73660; 99284

== ENCOUNTER 2022-08-02 02:57 | Outpatient (CLI) | payer BC, SELFPAY ==
[2022-08-11 14:03] LABS: Testosterone, Free 20.1 ng/dL (3.87-14.7); Testosterone, Total 887 ng/dL (240-950)
== END 2022-08-02 02:58 | disposition home or self-care (01) ==
PROVIDERS: PCP Family Medicine; Visit Provider Family Medicine
DX: Z00.00 Encounter for general adult medical examination without abnormal findings (principal)
CPT/HCPCS: 36415; 84402; 84403

== ENCOUNTER 2022-08-08 06:09 | Day surgery (SDC) | payer BC, SELFPAY ==
[2022-08-08 06:24] VITALS: BP 138/67; PULSE 89; RESP 18; TEMP 36.5; O2SAT 99
--- NOTE | 2022-08-08 07:07 | PDOC.DSDIS_ITS ---
Date of service: 08/08/22 Time of Service: 07:07 Discharge Plan Disposition Patient Disposition: Home Condition: Good Discharge Details Reason For Visit: LMF Trigger Finger Attending Provider: Nawaf Bejarano Primary Care Provider: Jay Gomez Home Meds and New Rx's Prescriptions: Continued famotidine 20 mg tablet 20 mg PO DAILY PRN (Reason: heartburn) Qty: 90 3RF Lyumjev KwikPen U-100 Insulin 100 unit/mL insulin pen 1 sliding scale dose subcut USEASDIRECTD Rx Instructions: 4-15 units sc tid albuterol sulfate [Ventolin HFA] 90 mcg/actuation HFA aerosol inhaler 2 puff inhalation QID PRN (Reason: shortness of breath or wheezing) Qty: 6.7 1RF ammonium lactate 12 % cream 1 applic topical BID PRN (Reason: dry skin on feet) Qty: 385 0RF triamcinolone acetonide 0.1 % cream 1 applic topical BID PRN (Reason: leg rash) Qty: 30 1RF lisinopril 10 mg tablet 10 mg PO DAILY Qty: 90 3RF insulin glargine [Lantus Solostar U-100 Insulin] 100 unit/mL (3 mL) insulin pen 24 unit SC HS atorvastatin 40 mg tablet 80 mg PO QHS sildenafil 100 mg tablet 50 - 100 mg PO DAILY PRN (Reason: sexual activity) Qty: 30 2RF Rx Instructions: administer 30 minutes to 4 hours before activity doxepin 10 mg capsule 10 mg PO BID Qty: 60 11RF fluconazole [Diflucan] 100 mg tablet 300 mg PO QWEEK PRN (Reason: tinea versicolor) Qty: 6 2RF calcium carbonate 500 MG tablet,chewable 500 mg PO PRN PRN (DME) pen needle, diabetic [CareTouch Pen Needle] 31 gauge x 3/16 needle See Rx Instructions .ROUTE .MEDSUPPLY Qty: 50 0RF Rx Instructions: As directed Discharge Instructions Additional Instructions: You should use Tylenol (up to 3000mg daily) and Ibuprofen (up to 2400mg daily) for pain relief. Stand Alone Forms: [place] T. Finger Release Referrals: Nawaf Bejarano MD [ [facility] STAFF PHYSICIAN] - Activity:: Elevate Remove Dressings/Wound Care:: 48 hours Shower/Bathe:: 48 hours Diet:: As Tolerated Discharge Orders Discharge Orders: Discharge Order (Routine); Ordered 08/08/22 Ordered By: Nawaf Bejarano DS: Diagnosis Discharge Diagnosis (1) Trigger finger, left middle finger: Status: Acute
[2022-08-08] MEDS: Lidocaine 1% Multi-Dose W/EPI 1/100,000 50 ML VIAL (07:38)
[2022-08-08] MEDS: Sodium Bicarbonate 50 MEQ/50 ML VIAL (07:38)
--- NOTE | 2022-08-08 07:47 | ROE_ITS ---
Date of service: 08/08/22 Time of Service: 07:48 Operative Note Operative Note DATE OF PROCEDURE: 08/08/22 PRE-OP DIAGNOSIS: Left Middle Finger Trigger Finger POST-OP DIAGNOSIS: same PROCEDURE: Trigger Finger Release - Left Middle Finger SURGEON: Nawaf Bejarano ANESTHESIA TYPE: Local By Surgeon Refer to Anesthesia Record ESTIMATED BLOOD LOSS: 5 PATHOLOGY: none sent TOURNIQUET TIME: 0 COMPLICATIONS: None Patient was transported to: same day Patient's condition: stable Indications: I have seen Chas in clinic for symptoms of a trigger finger. The catching, clicking, locking, and pain limited function. The diagnosis of trigger finger was evident. The symptoms had not responded to conservative measures. I discu ssed trigger finger release with the patient. I reviewed the risks of the procedure to include, but not limited to, bleeding, infection, pain, stiffness, incomplete release, damage to nerves or vessels, continued catching, recurrence. Despite these risks, the patient elected to proceed. Findings: There was a tightened A1 ross which was released. The flexor tendons were inspected and the patient was able to move the finger without any catching, clicking, or locking. There was also tight palmar fascia which was released. Procedure Description: Chas was greeted in the preoperative holding area where the correct side was identified and marked. The consent was reviewed with the patient and signed. All questions were answered. He was taken back to the operating room. The patient was placed into the supine position on the operating room table with the left arm on an arm board. All bon y prominences were well padded. No prophylactic antibiotics were administered since this was a clean, elective hand surgical case. The left arm was then prepped with Chloraprep and draped in a standard fashion with stockinette and extremity drape. A timeout to confirm correct identity, side and site, procedure, allergies, anesthesia, and medical concerns was performed. The surgical site was marked as a longitudinal incision directly over the A1 ross of the involved digit. This was confirmed with palpation during finger flexion. This area, overlying the metacarpal head, was then anesthetized with 1% Lidocaine with Epinephrine and buffered with Sodium Bicarbonate. The patient tolerated this well and once the anesthetic had setup, the procedure began. A longitudinal incision was made through skin only, approximately 1cm. The deep tissues were dissected bluntly. Once the A1 ross and flexor tendons were identified the soft tissue including neurovascular structures were retracted medially and laterally. There were no crossing structures over the A1 ross. The proximal edge of the ross was identified and the ross was incised with tenotomy scissors. There was a release of the tendons once this was fully released. The tendons were then removed from the wound and inspected. Excess synovium was resected. The tendons were then returned and the patient was asked to move the finger into deep flexion and back to extension. There was no recreation of the pre-operative symptoms. The hand was then once more inspected for any A0 ross or area of possible constriction. There was tight palmar fascia in this area and it was also released. The wound was then irrigated and the skin was closed with a 4-0 Nylon. This was dressed with gauze and a Conform dressing. The patient tolerated the procedure well and was returned to the Same Day Surgery area in a stable condition suffering no known complication.
[2022-08-08 07:48] VITALS: BP 132/66; PULSE 82; RESP 16; TEMP 36.6; O2SAT 94
== END 2022-08-08 08:22 | disposition home or self-care (01) ==
PROVIDERS: PCP Family Medicine; Visit Provider Student in an Organized Health Care Education/Training Program
PROC: (CPT 26055; principal; 2022-08-08 07:30)
DX: M65.332 Trigger finger, left middle finger (principal)
CPT/HCPCS: 26055

== ENCOUNTER 2022-08-25 11:21 | Observation (INO) | payer BC, SELFPAY ==
[2022-08-25] VITALS (12 sets, daily range): BP systolic 131–191; BP diastolic 62–82; PULSE 72–83; RESP 14–22; TEMP 36.3–37.2; O2SAT 92–99; BMI 24.5
[2022-08-25] MEDS: Dextrose 50%-Water 25 GM/50 ML SYR IVP (13:08)
[2022-08-25] MEDS: HYDROmorphone 2 MG/ML SYR 0.5 MG IVP (13:10)
--- NOTE | 2022-08-25 16:04 | W.ANESPRE ---
General Info Date of Service Date Performed: 08/25/22 Height: 5 ft 5 in Weight: 67 kg Body Mass Index (BMI): 24.5 Surgical Procedure: Operation Date: 08/25/22 14:40 Proposed Procedure Side Surgeon p I&D Flexor Tendon LMF Left Nawaf Bejarano MD Meds Allergies and Home Medications Allergies Allergy/AdvReac Type Severity Reaction Status Date / Time No Known Allergies Allergy Verified 08/25/22 10:35 Home Medication Medication Instructions Recorded calcium carbonate 200 mg calcium 500 mg PO PRN PRN 10/09/16 (500 mg) chewable tablet insulin glargine 100 unit/mL (3 24 unit subcut HS 08/19/19 mL) subcutaneous pen (Lantus Solostar U-100 Insulin) atorvastatin 40 mg tablet 80 mg PO QHS 10/08/20 sildenafil 100 mg tablet 50 - 100 mg PO DAILY PRN sexual 05/20/21 activity #30 tabs pen needle, diabetic 31 gauge x #50 ea 07/09/2108/17 (CareTouch Pen Needle) albuterol sulfate 90 mcg/actuation 2 puff inhalation QID PRN 07/13/21 aerosol inhaler (Ventolin HFA) shortness of breath or wheezing #6.7 grams insulin lispro-aabc 100 unit/mL 1 sliding scale dose subcut 07/13/21 subcutaneous pen (Lyumjuaquin Ayoub USEASDIRECTD U-100 Insulin) famotidine 20 mg tablet 20 mg PO DAILY PRN heartburn #90 07/20/21 tabs doxepin 10 mg capsule 10 mg PO BID #60 caps 03/28/22 lisinopril 10 mg tablet 10 mg PO DAILY #90 tabs 06/01/22 ammonium lactate 12 % topical cream 1 applic topical BID PRN dry skin 07/25/22 on feet #385 grams triamcinolone acetonide 0.1 % 1 applic topical BID PRN leg rash 07/25/22 topical cream #30 grams fluconazole 100 mg tablet 300 mg PO QWEEK PRN tinea 07/31/22 (Diflucan) versicolor #6 tabs cephalexin 500 mg capsule 500 mg PO TID #21 caps 08/24/22 Current Visit Medications: Current Medications Generic Name Dose Route Start Last Admin Trade Name Freq PRN Reason Stop Dose Admin Albuterol Sulfate 2 puff 08/25/22 11:23 Albuterol Hfa 8 Gm 60 Puff Inh IH QID PRN PRN shortness of breath or wheezing Atorvastatin Calcium 80 mg 08/25/22 12:00 Atorvastatin 40 Mg Tab PO QHS [facility] Device 1 each 08/25/22 12:00 Inhaler, Assist Device MC DIRECTED [facility] Dextrose 0 gm 08/25/22 12:41 Glucose Oral Gel 15 Gm/37.5 Gm Tube PO DIRECTED PRN Dextrose/Water 0 gm 08/25/22 12:41 08/25/22 13:08 Dextrose 50%-Water 25 Gm/50 Ml Syr IVP 12.5 gm DIRECTED PRN Administration Doxepin HCl 10 mg 08/25/22 20:00 Doxepin 10 Mg Cap PO BID [facility] Famotidine 20 mg 08/25/22 11:23 Famotidine 20 Mg Tab PO DAILY PRN heartburn Hydromorphone HCl 0.5 mg 08/25/22 11:21 08/25/22 13:10 Hydromorphone 2 Mg/Ml Syr IVP 0.5 mg Q2H PRN PRN Administration Sodium Chloride 1,000 mls @ 80 mls/hr 08/25/22 12:45 Saline 1000ml Bag IV INFUSION [facility] Insulin Glargine 24 units 08/25/22 22:00 Insulin Glargine 300 Units/3 Ml Pen SC HS [facility] Lisinopril 10 mg 08/26/22 08:30 Lisinopril 10 Mg Tab PO DAILY [facility] Non-Formulary Medication 1 sliding sc 08/25/22 11:30 Insulin Lispro-Aabc [Nasra Ayoub U-100 Insulin] SC USEASDIRECTD [facility] PFSH Active Problems Active Problems: Problem Status Onset Code Suppurative tenosynovitis of flexor tendon of left hand M65.142 DM (diabetes mellitus) Former heavy tobacco smoker Z87.891 CARMENCITA on CPAP G47.33, Z99.89 Viral pneumonitis J12.9 Adjustment disorder with depressed mood F43.21 Pruritic condition L29.9 Tinea versicolor B36.0 Medical History Medical History Cellulitis of toe Cough Diabetes mellitus Diabetes mellitus type 1 (10/24/12) continue with endo Diabetic retinopathy of both eyes (~06/10/20) MODERATE B/L Elevated blood pressure reading without diagnosis of hypertension Esophagitis (04/09/17) 04/09/17 SEVERE WITH ULCER Gastritis (04/09/17) GERD (gastroesophageal reflux disease) Hyperlipidemia Hypertension Hypoxia Impingement syndrome of left shoulder Orthopnea CARMENCITA (obstructive sleep apnea) uses cpap Pneumonia Rash Respiratory failure with hypoxia Shoulder pain, right Subacromial bursitis Tear of right rotator cuff Tendinosis of rotator cuff Tinea corporis Tinea versicolor Trigger index finger of left hand s/p left index finger trigger release DOS: 09/07/20 Trigger index finger of left hand Umbilical hernia Medical History Comments:: 08/08/22: uses CPAP nightly Surgical History Surgical History Colonoscopy - MAC (04/09/17) DJD of AC (acromioclavicular) joint S/P distal clavicle excision/acromioplasty: 01/26/2020 EGD - MAC (04/09/17) Tobacco Smoking/Tobacco Use Status: Current every day Tobacco Type: cigarettes Smoking cigarettes per day: 10 Passive smoking exposure: Yes Second hand exposure: Yes Alcohol Alcohol Intake: current Alcohol intake frequency: holidays/special occasions only Alcohol type: beer Substance Use Substance use: Never Substance use type: does not use Vital Signs and Lab Results Vital Signs Most Recent Vital Signs in EMR: Most Recent Vital Signs Temp Pulse Resp BP Pulse Ox 36.8 C 72 18 137/68 98 08/25/22 12:30 08/25/22 12:30 08/25/22 12:30 08/25/22 12:30 08/25/22 12:30 Point of Care Results Point of Care Results: Finger Stick Blood Glucose 130 08/25/22 13:36 Lab Results Blood Type / Crossmatch: No Data to Display Complete Blood Count: No Data to Display Complete Metabolic Panel: No Data to Display Liver Function Panel: No Data to Display Coagulation Panel: No Data to Display Cardiac Panel: No Data to Display Arterial Blood Gas: No Data to Display Venous Blood Gas: No Data to Display Pancreas Panel: No Data to Display Thyroid Panel: No Data to Display Infectious Disease: No Data to Display Blood Cultures: No Data to Display Toxicology Panel: No Data to Display Imaging and Studies Imaging and Studies Study information below may be from another EMR and interpreted by another provider. Please see original notes in EMR for more complete details. EKG Summary: 07/06/2021: Exam: Resting ECG Reason for Exam: shortness of breath Patient Location: E HR:103 bpm ECG Measurements Heart Rate 103 AXIS IL 88 P 51 QRSd 81 QRS 84 QT 327 T55 QTc 429 Conclusion Sinus tachycardia...rate> 99 I have reviewed and I agree with the emergency room physician's ECG interpretation Echocardiogram Summary: 07/07/2021: Conclusion Normal left ventricular wall thickness and chamber size. Estimated ejection fraction is 60%. Wall motion is normal Normal right ventricular size and systolic function Both atria are normal in size There is no structural or hemodynamically significant valvular disease Right ventricular systolic pressure could not be estimated Anesthesia Assessment and Plan Anesthesia History Personal History: No History of Anesthesia Complications Family History: Family History Unknown Exercise Tolerance Exercise Tolerance: Metabolic Equivalents>4 Pertinent Negatives Pertinent Negatives: No Symptoms of GERD, No Major Cardiovascular Symptoms or Complaints and No Major Pulmonary Symptoms or Complaints Cardiac & Pulmonary Exam Cardiac Exam: Normal S1/S2 Heart Sounds Pulmonary Exam: Clear Bilateral Breath Sounds Implantable Cardiac Device Does patient have a Pacemaker or an ICD?: No Airway Exam Known Difficult Airway: No Mallampati Class: 2 Mouth Opening: Normal (> 3cm) Thyromental Distance: Greater than 3 cm Facial Hair: Full Lepe (partial) Neck Range of Motion: Full ROM Neck Circumference: Normal Teeth Condition: Normal Dentition ASA Classification ASA Score: ASA 3 Emergency Case?: No NPO Status NPO Status: NPO Clears >2 hours, Solids >8 hours Anesthesia Plan Resuscitation Status: Full Code Anesthesia Technique: General Anesthesia Airway Planned: LMA Monitors Used: Standard Monitors
--- NOTE | 2022-08-25 16:41 | W.PM.HP.N ---
Date of service: 08/25/22 Time of Service: 12:30 Assessment and Plan Assessment and plan (1) Suppurative tenosynovitis of flexor tendon of left hand: Status: Acute Assessment and plan: Chas is a 57-year-old diabetic unfortunately now has an infection about his left hand involving flexor tendon. Given this appearance and the findings I do recommend surgical debridement with antibiotics. I reviewed this with him in the office. Once again I reviewed it today in the hospital. I discussed the technical details of the surgery. I reviewed the risk to include continued infection, stiffness, damage nerves and vessels, damage to muscle tendons, wound healing difficulties, complications from. Despite these risk, he elects to proceed. He will remain NPO. We will proceed to the operating room later this afternoon. History of Present Illness History of Present Illness Chief Complaint: Left middle finger infection Narrative: Chas is a 57-year-old who is almost 3 weeks status post left middle finger trigger release. Please see the office note dated today where I evaluate him in the office for the same problem. He has been diagnosed with superlative flexor tenosynovitis of the left middle finger. I had seen him in the office 1 week before which at that time he was doing well without signs of infection. He currently has pain, stiffness, and swelling along with some drainage of the left middle finger. He denies fevers or chills. He is a diabetic on insulin and has noted some hyperglycemic readings although average has been close to his baseline. He was using the hand quite frequently after the surgery, mostly in a glove, in response [place] [facility]. Review of Systems All systems reviewed & are unremarkable except as noted in HPI and below PFSH All Active Problems Suppurative tenosynovitis of flexor tendon of left hand (Acute) DM (diabetes mellitus) (Acute) Former heavy tobacco smoker (Acute) CARMENCITA on CPAP (Chronic) Viral pneumonitis (Acute) Adjustment disorder with depressed mood (Acute) Pruritic condition (Acute) Tinea versicolor (Acute) Medical History Cellulitis of toe Cough Diabetes mellitus Diabetes mellitus type 1 (10/24/12) continue with endo Diabetic retinopathy of both eyes (~06/10/20) MODERATE B/L Elevated blood pressure reading without diagnosis of hypertension Esophagitis (04/09/17) 04/09/17 SEVERE WITH ULCER Gastritis (04/09/17) GERD (gastroesophageal reflux disease) Hyperlipidemia Hypertension Hypoxia Impingement syndrome of left shoulder Orthopnea CARMENCITA (obstructive sleep apnea) uses cpap Pneumonia Rash Respiratory failure with hypoxia Shoulder pain, right Subacromial bursitis Tear of right rotator cuff Tendinosis of rotator cuff Tinea corporis Tinea versicolor Trigger index finger of left hand s/p left index finger trigger release DOS: 09/07/20 Trigger index finger of left hand Umbilical hernia Surgical History Colonoscopy - MAC (04/09/17) DJD of AC (acromioclavicular) joint S/P distal clavicle excision/acromioplasty: 01/26/2020 EGD - MAC (04/09/17) Family History Mother Breast cancer Father Alcohol abuse Heart disease Stroke Depression Hyperlipidemia Brother Heart disease Stroke Alcohol abuse Son , 25 Substance abuse Depression Substance use disorder Sister Asthma Social History Smoking/Tobacco Use Status: Current every day Tobacco Type: cigarettes Tobacco: How many years used: 35 Quit status: has quit before Second Hand Exposure: Yes Smoking risk assessment performed?: Yes Alcohol Intake: current Alcohol Intake frequency: holidays/special occasions only Alcohol type: beer Drug use: Never Substance use type: does not use Caregiver/Support person: No Household members: spouse and children Housing: house Communication Needs: None Do you need help understanding health information?: Never Pets and animals: Yes Pets and animals: dog(s) Sexually active: No Do you think of yourself as: straight/heterosexual Current gender identity: male What is your relationship status?: How often do you talk on the phone with friends or family?: once per week How often do you get together with friends or relatives?: once per week How often do you attend amish or islam services?: decline to answer Do you belong to any clubs or organized social groups?: no Panel score (0-1 are the most socially isolated patients): 1 What type of physical activity do you participate in: none Frequency: does not exercise Rachele/Yazdanism: None Special rachele needs: No Seatbelt use: always Helmet use: No Drive intox or ride w/intox refrigerated national truck driver: No Do you feel safe at home: Yes Do you feel safe in your relationship?: Yes Victim of physical abuse: No Victim of emotional abuse: No Victim of sexual abuse: No Would you like helpful sources: No Meds Allergies and Home Medications Allergies Allergy/AdvReac Type Severity Reaction Status Date / Time No Known Allergies Allergy Verified 08/25/22 10:35 Home Medications Medication Instructions Recorded Confirmed Type calcium carbonate 200 mg calcium 500 mg PO PRN PRN 10/09/16 08/25/22 History (500 mg) chewable tablet insulin glargine 100 unit/mL (3 24 unit subcut HS 08/19/19 08/25/22 History mL) subcutaneous pen (Lantus Solostar U-100 Insulin) atorvastatin 40 mg tablet 80 mg PO QHS 10/08/20 08/25/22 History sildenafil 100 mg tablet 50 - 100 mg PO DAILY PRN sexual 05/20/21 08/25/22 Rx activity #30 tabs pen needle, diabetic 31 gauge x #50 ea 07/09/21 08/25/22 Rx 3/16 (CareTouch Pen Needle) albuterol sulfate 90 mcg/actuation 2 puff inhalation QID PRN 07/13/21 08/25/22 Rx aerosol inhaler (Ventolin HFA) shortness of breath or wheezing #6.7 grams insulin lispro-aabc 100 unit/mL 1 sliding scale dose subcut 07/13/21 08/25/22 History subcutaneous pen (Lyumjev Anitra USEASDIRECTD U-100 Insulin) famotidine 20 mg tablet 20 mg PO DAILY PRN heartburn #90 07/20/21 08/25/22 Rx tabs doxepin 10 mg capsule 10 mg PO BID #60 caps 03/28/22 08/25/22 Rx lisinopril 10 mg tablet 10 mg PO DAILY #90 tabs 06/01/22 08/25/22 Rx ammonium lactate 12 % topical cream 1 applic topical BID PRN dry skin 07/25/22 08/25/22 Rx on feet #385 grams triamcinolone acetonide 0.1 % 1 applic topical BID PRN leg rash 07/25/22 08/25/22 Rx topical cream #30 grams fluconazole 100 mg tablet 300 mg PO QWEEK PRN tinea 07/31/22 08/25/22 Rx (Diflucan) versicolor #6 tabs cephalexin 500 mg capsule 500 mg PO TID #21 caps 08/24/22 08/25/22 Rx Exam Const General: cooperative, healthy appearing, comfortable and no acute distress Neck Neck: normal visual inspection and full ROM Resp Effort & Inspection: normal respiratory effort Auscultation: clear to auscultation bilaterally Cardio Rate: regular rate Rhythm: regular rhythm Extrem Other: Left middle finger with obvious wound. Redness and swelling of the middle finger with pain to palpation along the flexor tendon. No significant ability to flex the finger due to pain. Pain with passive extension. Results Last Vital Signs Temp 36.7 C 08/25/22 15:05 Pulse 75 08/25/22 15:05 Resp 14 08/25/22 15:05 BP 144/79 H 08/25/22 15:05 Pulse Ox 96 08/25/22 15:05 Time Spent Time spent with Patient: <40 minutes Time was spent: obtaining and/or reviewing separately otained hiistory, ordering medications,tests, procedures and counseling the patient
[2022-08-25] MEDS: Lactated Ringers 1,000 ML 30 ML IV (17:09)
[2022-08-25] MEDS: Bupivacaine 0.5% Pres-Free W/EPI 30 ML VIAL (17:40)
--- NOTE | 2022-08-25 18:06 | W.ANESPOSTOP ---
Postoperative Evaluation Date, Time and Location Date Performed: 08/25/22 Time Performed: 18:06 Patient Location: PACU Vital Signs Most Recent Imported Vital Signs: Most Recent Vital Signs Temp Pulse Resp BP Pulse Ox 37.2 C 74 16 175/64 H 97 08/25/22 18:03 08/25/22 18:03 08/25/22 18:03 08/25/22 18:03 08/25/22 18:03 Pain Score Most Recent Pain Score: Most Recent Pain Score Pain Level 0 08/25/22 18:03 Assessment Mental Status: Arousable with meaningful communication Airway and Respiratory Function: Patent airway with normal (patient baseline) respiratory exam Cardiovascular Function: Hemodynamically Stable Hydration Status: Adequately Hydrated Nausea & Vomiting: No Nausea or Vomiting Pain: Pt. Denies Any Pain Peripheral Nerve Block: Patient did not receive a nerve block
[2022-08-25] MEDS: Ketorolac 15 MG/ML VIAL IVP (19:06)
[2022-08-25] MEDS: cefTAZidime 2,000 MG in Normal Saline 100 ML 200 MG IVPB (19:15)
[2022-08-25] MEDS: Atorvastatin 40 MG TAB 80 MG PO (20:29)
[2022-08-25] MEDS: Doxepin 10 MG CAP PO (20:29)
--- NOTE | 2022-08-25 21:03 | W.PM.OP ---
Date of service: 08/25/22 Time of Service: 17:45 Operative Note Operative Note DATE OF PROCEDURE: 08/25/22 PRE-OP DIAGNOSIS: Left Middle Finger Flexor Tenosynovitis, Surgical Wound Infection POST-OP DIAGNOSIS: same PROCEDURE: Irrigation and Debridement of LMF Flexor Tendon Sheath SURGEON: Nawaf Bejarano ANESTHESIA TYPE: General LMA/ETT Refer to Anesthesia Record ESTIMATED BLOOD LOSS: 10 PATHOLOGY: other (1 set of aerobic and anaerobic culture) TOURNIQUET TIME: 0 COMPLICATIONS: None Patient was transported to: PACU Patient's condition: stable Indications: Chas is a 57-year-old who is 3 weeks status post left middle finger trigger release. He is doing well at the 2-week checkup but unfortunately has developed an infection at the surgical site with concern for flexor tenosynovitis. Given the findings, I recommended urgent surgical debridement irrigation. I reviewed the indications and the risk with him. These risks included continued infection, need for repeat procedures, damage nerves and vessels, damage to muscle and tendons. Despite these risk, he elects to proceed. Findings: There was a small amount of purulence at the level of the incision. The tendon sheath was irrigated with Angiocath technique but without notable purulence within the tendon sheath itself. 1 set of aerobic and anaerobic cultures were sent. Procedure Description: Chas is read in the preoperative holding area. His identity was confirmed the correct site was identified and marked. The history and physical have been updated previously and the consent was reviewed and signed. He was taken to the operating room placed in the supine position with the hand on a hand table. The left arm was prepped with Betadine and draped in a standard fashion. Prophylactic antibiotics were held until after cultures were obtained. A timeout was performed for safe surgery. The previous surgical incision was then extended half of a centimeter in each direction. There was some mild purulence encountered at this level. Cultures were taken. The flexor tendon was then identified. There is no significant debris seen at this level. Pressure within the flexor tendon sheath did not express any fluid out. This area is briefly irrigated and any infectious material was removed. I then created a transverse incision at the DIP flexion crease and bluntly entered into the flexor tendon sheath at this level. Using an Angiocath within the flexor tendon sheath I irrigated the flexor tendon sheath from proximal to distal. Effluent was flowing freely from the DIP incision site. This was thoroughly irrigated. Attention was then turned then back to the proximal incision. Once again debridement was performed of any infectious or chronic Corail material. This was thoroughly irrigated. I then injected the area around the A1 ross and the proximal incision site with 0.25% bupivacaine with epinephrine. The proximal incision was then closed with 4-0 nylon. The wounds were then dressed with Xeroform followed by gauze and a conform dressing. A short arm splint was applied. Chas was awakened from anesthesia and taken to the PACU in stable condition.
[2022-08-25] MEDS: Insulin Glargine 300 UNITS/3 ML PEN 24 UNITS SC (21:09)
[2022-08-26] MEDS: cefTAZidime 2,000 MG in Normal Saline 100 ML 200 MG IVPB (01:01)
[2022-08-26] MEDS: Ketorolac 15 MG/ML VIAL IVP ×2 (01:02→05:27)
[2022-08-26] MEDS: Normal Saline Flush 10 ML SYR IVP ×4 (01:15→09:59)
[2022-08-26 03:12] VITALS: BP 126/67; PULSE 89; RESP 20; TEMP 36.6; O2SAT 95
[2022-08-26 06:37] VITALS: BP 127/66; PULSE 81; RESP 20; TEMP 37.1; O2SAT 96
[2022-08-26] MEDS: Doxepin 10 MG CAP PO (08:06)
[2022-08-26] MEDS: Lisinopril 10 MG TAB PO (08:06)
--- NOTE | 2022-08-26 09:41 | W.PM.DS.N ---
Date of service: 08/26/22 Time of Service: 09:42 DS: Diagnosis Discharge Diagnosis (1) Suppurative tenosynovitis of flexor tendon of left hand: Status: Acute Discharge Plan Disposition Patient Disposition: Home Condition: Good Discharge Details Reason For Visit: LMF Suppurative Flexor Tenosynovitis Admit Date/Time: 08/25/22 11:21 Admit Provider: Nawaf Bejarano Attending Provider: Nawaf Bejarano Primary Care Provider: Jay Gomez Hospital Course Hospital Course: Chas was admitted from the clinic to the hospital for infection of his left middle finger trigger finger with involvement of the flexor tendon, flexor tenosynovitis. He was taken to the operating room on the day of admission for incision, irrigation and debridement. The flexor tendon was irrigated. There was no significant purulence seen along the flexor tendon. It was easily irrigated. He was started on IV antibiotics. Initial Gram stain is showing gram-positive cocci. He has been stable overnight with mild pain. He denies fevers or chills. He was evaluated on hospital day #2, postop day #1, and is stable for discharge home with oral antibiotics and close follow-up. Home Meds and New Rx's Prescriptions: New hydrocodone-acetaminophen 5-325 mg tablet 1 tab PO Q6H PRN (Reason: pain) Qty: 12 0RF ibuprofen 600 mg tablet 600 mg PO TID PRN (Reason: pain) Qty: 60 3RF metronidazole 500 mg tablet 500 mg PO Q8H Qty: 21 0RF Continued famotidine 20 mg tablet 20 mg PO DAILY PRN (Reason: heartburn) Qty: 90 3RF Lyumjev KwikPen U-100 Insulin 100 unit/mL insulin pen 1 sliding scale dose subcut USEASDIRECTD Rx Instructions: 4-15 units sc tid albuterol sulfate [Ventolin HFA] 90 mcg/actuation HFA aerosol inhaler 2 puff inhalation QID PRN (Reason: shortness of breath or wheezing) Qty: 6.7 1RF ammonium lactate 12 % cream 1 applic topical BID PRN (Reason: dry skin on feet) Qty: 385 0RF triamcinolone acetonide 0.1 % cream 1 applic topical BID PRN (Reason: leg rash) Qty: 30 1RF lisinopril 10 mg tablet 10 mg PO DAILY Qty: 90 3RF insulin glargine [Lantus Solostar U-100 Insulin] 100 unit/mL (3 mL) insulin pen 24 unit SC HS atorvastatin 40 mg tablet 80 mg PO QHS sildenafil 100 mg tablet 50 - 100 mg PO DAILY PRN (Reason: sexual activity) Qty: 30 2RF Rx Instructions: administer 30 minutes to 4 hours before activity doxepin 10 mg capsule 10 mg PO BID Qty: 60 11RF fluconazole [Diflucan] 100 mg tablet 300 mg PO QWEEK PRN (Reason: tinea versicolor) Qty: 6 2RF cephalexin 500 mg capsule 500 mg PO TID Qty: 21 0RF Rx Instructions: take 1 tablet by mouth three times per day for 7 days calcium carbonate 500 MG tablet,chewable 500 mg PO PRN PRN (DME) pen needle, diabetic [CareTouch Pen Needle] 31 gauge x 3/16 needle See Rx Instructions .ROUTE .MEDSUPPLY Qty: 50 0RF Rx Instructions: As directed Discharge Instructions Additional Instructions: Discharge Instructions Activity: You should keep the hand elevated as much as possible for the first few days. You may use the other fingers as tolerated but avoid trying to do too much too soon. You may perform light activities with the splint in place. Dressing/Cast: Your splint should stay in place at all times. Do NOT get it wet. You may loosen the OSIEL wrap if you feel it is too tight and then rewrap more loosely. Medications: - You should take Tylenol and Ibuprofen for baseline pain control. - You have Hydrocodone for breakthrough pain. - You should continue to take your antibiotic, Cephalexin (which you already have), 3 times a day, starting tonight as well as Metronidazole, 3 times a day Follow-up: Sunday, 7:50AM Referrals: Nawaf Bejarano MD [ [facility] STAFF PHYSICIAN] - Activity:: Keep left hand elevated Equipment/Supplies:: No Equipment Needed Diet:: Carb Counting Discharge Orders Discharge Orders: Discharge Order (Routine); Ordered 08/26/22 Ordered By: Nawaf Bejarano DS: Summary Time Spent with Patient providing and/or coordinating discharge services: Less than 30 minutes Status at Discharge Functional status at discharge: independent ambulation Overall status at discharge: patient is progressing back to baseline Mental Status: mental status grossly normal Speech and Movement: speech and movement normal Mood: congruent mood Affect: normal affect Exam Narrative Exam Narrative: Sitting up in the bed. No acute distress. Alert and orient x3. Vital signs are stable. Evaluation of left hand shows that is in the splint. Cap refill less than 2 seconds. No drainage. Psych Mental Status: mental status grossly normal Speech and Movement: speech and movement normal Mood: congruent mood Affect: normal affect DS: Data Vitals/I&O Vitals and I&O: Vital Signs Temperature 37.1 C 08/26/22 06:37 Temperature Source Tympanic 08/26/22 06:37 Pulse 81 08/26/22 06:37 Pulse Rhythm Regular 08/25/22 23:45 Respiratory Rate 20 08/26/22 06:37 Respiratory Effort Normal 08/25/22 23:45 Respiratory Depth Normal 08/25/22 23:45 Respiratory Pattern Normal 08/25/22 23:45 Blood Pressure 127/66 08/26/22 06:37 Pulse Oximetry 96 08/26/22 06:37 Respiratory End-tidal CO2 30 08/25/22 18:11 Oxygen Delivery Method Room Air 08/26/22 06:37 Oxygen Flow Rate 0 08/26/22 06:37 Pain Level 0 08/26/22 06:37 Intake & Output 08/25/22 08/25/22 08/26/22 11:59 23:59 11:59 Intake Total 350 / 350 100 / 100 Balance 350 / 350 100 / 100 Weight 67 kg Intake: IV 350 / 350 100 / 100 Other: Urine Appearance Clear Comment pt up ad soraya to utilize toilet to void Emesis Description None Data Completed and Pending Labs on day of discharge: 08/25/22 17:12 Finger - Left Third Digit Surgical Culture - Pending 08/25/22 17:27 Hand - Left Anaerobic Culture - Pending Preliminary micro results at discharge 08/25/22 17:12 Surgical Culture - Pending Finger - Left Third Digit 08/25/22 17:27 Anaerobic Culture - Pending Hand - Left PFSH All Active Problems Suppurative tenosynovitis of flexor tendon of left hand (Acute) DM (diabetes mellitus) (Acute) Former heavy tobacco smoker (Acute) CARMENCITA on CPAP (Chronic) Viral pneumonitis (Acute) Adjustment disorder with depressed mood (Acute) Pruritic condition (Acute) Tinea versicolor (Acute) Medical History Cellulitis of toe Cough Diabetes mellitus Diabetes mellitus type 1 (10/24/12) continue with endo Diabetic retinopathy of both eyes (~06/10/20) MODERATE B/L Elevated blood pressure reading without diagnosis of hypertension Esophagitis (04/09/17) 04/09/17 SEVERE WITH ULCER Gastritis (04/09/17) GERD (gastroesophageal reflux disease) Hyperlipidemia Hypertension Hypoxia Impingement syndrome of left shoulder Orthopnea CARMENCITA (obstructive sleep apnea) uses cpap Pneumonia Rash Respiratory failure with hypoxia Shoulder pain, right Subacromial bursitis Tear of right rotator cuff Tendinosis of rotator cuff Tinea corporis Tinea versicolor Trigger index finger of left hand s/p left index finger trigger release DOS: 09/07/20 Trigger index finger of left hand Umbilical hernia Surgical History Colonoscopy - MAC (04/09/17) DJD of AC (acromioclavicular) joint S/P distal clavicle excision/acromioplasty: 01/26/2020 EGD - MAC (04/09/17) Family History Mother Breast cancer Father Alcohol abuse Heart disease Stroke Depression Hyperlipidemia Brother Heart disease Stroke Alcohol abuse Son , 25 Substance abuse Depression Substance use disorder Sister Asthma Social History Smoking/Tobacco Use Status: Current every day Tobacco Type: cigarettes Tobacco: How many years used: 35 Quit status: has quit before Second Hand Exposure: Yes Smoking risk assessment performed?: Yes Alcohol Intake: current Alcohol Intake frequency: holidays/special occasions only Alcohol type: beer Drug use: Never Substance use type: does not use Caregiver/Support person: No Household members: spouse and children Housing: house Communication Needs: None Do you need help understanding health information?: Never Pets and animals: Yes Pets and animals: dog(s) Sexually active: No Do you think of yourself as: straight/heterosexual Current gender identity: male What is your relationship status?: How often do you talk on the phone with friends or family?: once per week How often do you get together with friends or relatives?: once per week How often do you attend quaker or mandaen services?: decline to answer Do you belong to any clubs or organized social groups?: no Panel score (0-1 are the most socially isolated patients): 1 What type of physical activity do you participate in: none Frequency: does not exercise Rachele/Holiness: None Special rachele needs: No Seatbelt use: always Helmet use: No Drive intox or ride w/intox pick up driver: No Do you feel safe at home: Yes Do you feel safe in your relationship?: Yes Victim of physical abuse: No Victim of emotional abuse: No Victim of sexual abuse: No Would you like helpful sources: No Time Spent with Patient Time Spent with Patient: <45 minutes Time was spent: ordering medications,tests, procedures, counseling the patient and care coordination
[2022-08-26] MEDS: cefTRIAXone 2 GM/50 ML BAG IVPB (09:59)
[2022-08-26] MEDS: metroNIDAZOLE 500 MG TAB PO (10:21)
== END 2022-08-26 12:45 | disposition home or self-care (01) ==
PROVIDERS: Admitting Provider Student in an Organized Health Care Education/Training Program; PCP Family Medicine; Visit Provider Student in an Organized Health Care Education/Training Program
PROC: (CPT 11043; principal; 2022-08-25 14:30)
DX: T81.49XA Infection following a procedure, other surgical site, initial encounter (principal); M65.142 Other infective (teno)synovitis, left hand; E11.9 Type 2 diabetes mellitus without complications; Z79.4 Long term (current) use of insulin; G47.33 Obstructive sleep apnea (adult) (pediatric)
CPT/HCPCS: 11043; 87077; 96365; 96367; 96372; 96375; 87070; 87075; 87205; G0378; J0690; J0713; J1170; J1885; J2405; J2704; J3010

== ENCOUNTER 2022-08-30 02:13 | Outpatient (CLI) | payer BC, SELFPAY ==
[2022-09-04 17:45] LABS: Testosterone, Free 15.4 ng/dL (3.87-14.7); Testosterone, Total 839 ng/dL (240-950)
== END 2022-08-30 02:14 | disposition home or self-care (01) ==
PROVIDERS: PCP Family Medicine; Visit Provider Family Medicine
DX: Z00.00 Encounter for general adult medical examination without abnormal findings (principal)
CPT/HCPCS: 36415; 84402; 84403

== ENCOUNTER 2022-10-04 11:27 | Day surgery (SDC) | payer BC, SELFPAY ==
[2022-10-04 11:36] VITALS: BP 138/67; PULSE 86; RESP 16; TEMP 36.7; O2SAT 96
--- NOTE | 2022-10-04 11:38 | PDOC.DSDIS_ITS ---
Date of service: 10/04/22 Time of Service: 11:39 Discharge Plan Disposition Patient Disposition: Home Condition: Good Discharge Details Reason For Visit: I&D L hand Attending Provider: Nawaf Bejarano Primary Care Provider: Jay Gomez Home Meds and New Rx's Prescriptions: New acetaminophen 500 mg tablet 1,000 mg PO TID Qty: 90 0RF Continued famotidine 20 mg tablet 20 mg PO DAILY PRN (Reason: heartburn) Qty: 90 3RF Lyumjev KwikPen U-100 Insulin 100 unit/mL insulin pen 1 sliding scale dose subcut USEASDIRECTD Rx Instructions: 4-15 units sc tid albuterol sulfate [Ventolin HFA] 90 mcg/actuation HFA aerosol inhaler 2 puff inhalation QID PRN (Reason: shortness of breath or wheezing) Qty: 6.7 1RF ammonium lactate 12 % cream 1 applic topical BID PRN (Reason: dry skin on feet) Qty: 385 0RF triamcinolone acetonide 0.1 % cream 1 applic topical BID PRN (Reason: leg rash) Qty: 30 1RF lisinopril 10 mg tablet 10 mg PO DAILY Qty: 90 3RF insulin glargine [Lantus Solostar U-100 Insulin] 100 unit/mL (3 mL) insulin pen 24 unit SC HS atorvastatin 40 mg tablet 80 mg PO QHS sildenafil 100 mg tablet 50 - 100 mg PO DAILY PRN (Reason: sexual activity) Qty: 30 2RF Rx Instructions: administer 30 minutes to 4 hours before activity doxepin 10 mg capsule 10 mg PO BID Qty: 60 11RF fluconazole [Diflucan] 100 mg tablet 300 mg PO QWEEK PRN (Reason: tinea versicolor) Qty: 6 2RF cephalexin 500 mg capsule 500 mg PO TID Qty: 21 0RF Rx Instructions: take 1 tablet by mouth three times per day for 7 days ibuprofen 600 mg tablet 600 mg PO TID PRN (Reason: pain) Qty: 60 3RF calcium carbonate 500 MG tablet,chewable 500 mg PO PRN PRN (DME) pen needle, diabetic [CareTouch Pen Needle] 31 gauge x 3/16 needle See Rx Instructions .ROUTE .MEDSUPPLY Qty: 50 0RF Rx Instructions: As directed Discharge Instructions Additional Instructions: I&D Hand Discharge Instructions Activity: You may use your fingers for light activity. You should limit any excessive motion or forceful gripping until the sutures have been removed. Dressings: You should keep the initial surgical dressing in place for at least 3 days. You may remove your dressings and get the wound wet after 3 days. You should keep the dressings and the wound clean at all times. Medications: - You should take Tylenol and Ibuprofen around the clock as prescribed or per telescope maintenance's recommendations. Follow-up: 7-10 days for wound check and suture removal. Referrals: Nawaf Bejarano MD [ [facility] STAFF PHYSICIAN] - Activity:: Activity as Tolerated Remove Dressings/Wound Care:: 72 hours Shower/Bathe:: 72 hours Diet:: As Tolerated Discharge Orders Discharge Orders: Discharge Order (Routine); Ordered 10/04/22 Ordered By: Roderick Watson DS: Diagnosis Discharge Diagnosis (1) Suppurative tenosynovitis of flexor tendon of left hand: Status: Acute
[2022-10-04] MEDS: Lidocaine 1% Multi-Dose W/EPI 1/100,000 50 ML VIAL (12:51)
[2022-10-04] MEDS: Sodium Bicarbonate 50 MEQ/50 ML VIAL (12:51)
[2022-10-04 13:20] VITALS: BP 133/76; PULSE 78; RESP 16; TEMP 36.2; O2SAT 94
--- NOTE | 2022-10-04 15:40 | W.PM.OP ---
Date of service: 10/04/22 Time of Service: 13:40 Operative Note Operative Note DATE OF PROCEDURE: 10/04/22 PRE-OP DIAGNOSIS: Cutaneous sinus tract of left middle finger, left middle finger tenosynovitis POST-OP DIAGNOSIS: same PROCEDURE: Excision of cutaneous sinus tract and synovectomy of left middle finger SURGEON: Nawaf Bejarano ANESTHESIA TYPE: Local By Surgeon Refer to Anesthesia Record ESTIMATED BLOOD LOSS: 0 PATHOLOGY: none sent TOURNIQUET TIME: 0 COMPLICATIONS: None Patient was transported to: same day Patient's condition: stable Indications: I have seen Chas in clinic for sequela from an infection following trigger finger release. He developed the flexor tenosynovitis which was surgically debrided and then treated with antibiotics. The infection is symptomatically resolved. However, he has been left with notable stiffness as well as a pinhole sinus tract about the left middle finger at the previous location of the incision. He does continue to drain some serous fluid and therefore I recommended we proceed with surgical excision of the sinus tract as well as synovectomy of the adherent scar tissue in this region. I reviewed the risks of the procedure to include, but not limited to, bleeding, recurrent infection, pain, continued stiffness, damage to nerves or vessels. Despite these risks, the patient elected to proceed. Findings: The previous incision site with the sinus tract was excised sharply. There is significant mount of synovitis and inflammatory tissue seen around the tendons. This was resected sharply. Manipulation of the finger was performed which still showed some stiffness of all joints about the left middle finger. There is no gross purulence nor sign of infection. Procedure Description: Chas was greeted in the preoperative holding area where the correct side was identified and marked. The consent was reviewed with the patient and signed. All questions were answered. He was taken back to the operating room. The patient was placed into the supine position on the operating room table with the left arm on an arm board. All bony prominences were well padded. The left arm was then prepped with Chloraprep and draped in a standard fashion with stockinette and extremity drape. A timeout to confirm correct identity, side and site, procedure, allergies, anesthesia, and medical concerns was performed. The proposed surgical site was then anesthetized with 1% Lidocaine. The patient tolerated this well and once the anesthetic had setup, the procedure began. The previous incision and the sinus tract was noted on the skin. An ellipse was made around this area sharply excising the sinus tract in the skin of this area. This was taken down into the deep tissue. There was notable inflammatory changes seen with abundant synovitis and inflammation. The deep tissues were dissected bluntly. These tissues were debrided sharply. Synovitis from around the flexor tendons was also resected. There was some fraying of the flexor tendon which was also resected sharply. Finger range of motion was performed with passively and actively in any excessive tissue seen adjacent to the flexor tendon was removed. There was no apparent restriction of motion of the flexor tendon. However, even with passive effort the finger was still limited in motion mostly at the PIP joint. There is no sign of purulence. There is no purulent fluid. The wound was then thoroughly irrigated and the skin was closed with a 4-0 Nylon. This was dressed with gauze and a Conform dressing. The patient tolerated the procedure well and was returned to the Same Day Surgery area in a stable condition suffering no known complication.
== END 2022-10-04 13:50 | disposition home or self-care (01) ==
PROVIDERS: PCP Family Medicine; Visit Provider Student in an Organized Health Care Education/Training Program
PROC: (CPT 26115; principal; 2022-10-04 13:30)
DX: M65.842 Other synovitis and tenosynovitis, left hand (principal); T81.83XA Persistent postprocedural fistula, initial encounter; L98.8 Other specified disorders of the skin and subcutaneous tissue; M65.142 Other infective (teno)synovitis, left hand
CPT/HCPCS: 26115; 26145

== ENCOUNTER 2022-10-26 11:24 | Outpatient (REF) | payer BC, SELFPAY | END 2022-10-26 11:25 | disposition home or self-care (01) | LOC: LBN 11:24 | PROVIDERS: PCP Family Medicine; Visit Provider Student in an Organized Health Care Education/Training Program | DX: M65.142 Other infective (teno)synovitis, left hand (principal); R89.5 Abnormal microbiological findings in specimens from other organs, systems and tissues | CPT/HCPCS: 87070; 87075; 87205 ==

== ENCOUNTER 2023-08-01 11:52 | Day surgery (SDC) | payer BC, SELFPAY ==
[2023-08-01 12:12] VITALS: BP 142/65; PULSE 89; RESP 18; TEMP 36.7; O2SAT 100
--- NOTE | 2023-08-01 12:29 | W.PM.DSUDISC ---
Date of service: 08/01/23 Time of Service: 12:29 Discharge Plan Disposition Patient Disposition: Home Condition: Good Discharge Details Reason For Visit: R Trigger thumb release Attending Provider: Nawaf Bejarano Primary Care Provider: Jay Gomez Home Meds and New Rx's Prescriptions: New acetaminophen 500 mg tablet 1,000 mg PO TID Qty: 90 0RF ibuprofen 600 mg tablet 600 mg PO TID PRN (Reason: pain) Qty: 90 0RF Continued famotidine 20 mg tablet 20 mg PO DAILY PRN (Reason: heartburn) Qty: 90 3RF Lyumjev KwikPen U-100 Insulin 100 unit/mL insulin pen 1 sliding scale dose subcut USEASDIRECTD Rx Instructions: 4-15 units sc tid lisinopril 10 mg tablet 10 mg PO DAILY Qty: 90 3RF insulin glargine [Lantus Solostar U-100 Insulin] 100 unit/mL (3 mL) insulin pen 24 unit SC HS atorvastatin 40 mg tablet 80 mg PO QHS sildenafil 100 mg tablet 50 - 100 mg PO DAILY PRN (Reason: sexual activity) Qty: 30 2RF Rx Instructions: administer 30 minutes to 4 hours before activity doxepin 10 mg capsule 10 mg PO BID Qty: 60 11RF fluconazole [Diflucan] 100 mg tablet 300 mg PO QWEEK PRN (Reason: tinea versicolor) Qty: 6 2RF calcium carbonate 500 MG tablet,chewable 500 mg PO PRN PRN (DME) pen needle, diabetic [CareTouch Pen Needle] 31 gauge x 3/16 needle See Rx Instructions .ROUTE .MEDSUPPLY Qty: 50 0RF Rx Instructions: As directed Discontinued ibuprofen 600 mg tablet 600 mg PO TID PRN (Reason: pain) Qty: 60 3RF Discharge Instructions Stand Alone Forms: Darci Calle Finger Release Activity:: Activity as Tolerated Remove Dressings/Wound Care:: 48 hours Shower/Bathe:: 48 hours Diet:: As Tolerated Discharge Orders Discharge Orders: Discharge Order (Routine); Ordered 08/01/23 Ordered By: Roderick Watson DS: Diagnosis Discharge Diagnosis (1) Trigger thumb, right thumb: Status: Acute
[2023-08-01] MEDS: Lidocaine 1% Multi-Dose W/EPI 1/100,000 50 ML VIAL (13:19)
[2023-08-01] MEDS: Sodium Bicarbonate 50 MEQ/50 ML VIAL (13:19)
[2023-08-01 13:35] VITALS: BP 126/68; PULSE 83; RESP 18; TEMP 37; O2SAT 97
--- NOTE | 2023-08-01 21:35 | W.PM.OP ---
Date of service: 08/01/23 Time of Service: 13:00 Operative Note Operative Note DATE OF PROCEDURE: 08/01/23 PRE-OP DIAGNOSIS: Right Trigger Thumb Left Middle Finger Stiffness POST-OP DIAGNOSIS: same PROCEDURE: Trigger Finger Release - Right Thumb, Manipulation of Left Middle Finger SURGEON: Nawaf Bejarano ANESTHESIA TYPE: Local By Surgeon Refer to Anesthesia Record PATHOLOGY: none sent COMPLICATIONS: None Patient was transported to: same day Patient's condition: stable Indications: I have seen Chas in clinic for symptoms of a trigger finger or the right thumb. The catching, clicking, locking, and pain limited function. The diagnosis of trigger finger was evident. The symptoms had not responded to conservative measures. I discussed trigger finger release with the patient. I reviewed the risks of the procedure to include, but not limited to, bleeding, infection, pain, stiffness, incomplete release, damage to nerves or vessels, continued catching, recurrence. Despite these risks, the patient elected to proceed. He also has continued stiffness of the left middle finger following previous trigger finger release, complicated by infection. Findings: There was a tightened A1 ross which was released. The flexor tendons were inspected and the patient was able to move the finger without any catching, clicking, or locking. The LMF was anesthetized and passively manipulated to improve passive range of motion. Procedure Description: Chas was greeted in the preoperative holding area where the correct side was identified and marked. The consent was reviewed with the patient and signed. All questions were answered. He was taken back to the operating room. The patient was placed into the supine position on the operating room table with the right arm on an arm board. All bony prominences were well padded. No prophylactic antibiotics were administered since this was a clean, elective hand surgical case. The right arm was then prepped with Chloraprep and draped in a standard fashion with stockinette and extremity drape. A timeout to confirm correct identity, side and site, procedure, allergies, anesthesia, and medical concerns was performed. Starting with the left middle finger, a digital block was performed to left middle finger. This allowed to set up while operating the right side. Then, addressing the right trigger thumb, the surgical site was marked as a longitudinal incision directly over the A1 ross of the rght thumb. This was confirmed with palpation during finger flexion. This area, overlying the metacarpal head, was then anesthetized with 1% Lidocaine. The patient tolerated this well and once the anesthetic had setup, the procedure began. A longitudinal incision was made through skin only, approximately 1cm. The deep tissues were dissected bluntly. Once the A1 ross and flexor tendons were identified the soft tissue including neurovascular structures were retracted medially and laterally. There were no crossing structures over the A1 ross. The proximal edge of the ross was identified and the ross was incised with tenotomy scissors. There was a release of the tendons once this was fully released. The tendons were then removed from the wound and inspected. Excess synovium was resected. The tendons were then returned and the patient was asked to move the finger into deep flexion and back to extension. There was no recreation of the pre-operative symptoms. The hand was then once more inspected for any A0 ross or area of possible constriction. The wound was then irrigated and the skin was closed with a 4-0 Nylon. This was dressed with gauze and a Conform dressing. Attention was then turned to the left middle finger. Anesthesia had been accomplished about the middle finger. I was able to foods at each joint individually. I was able to improve passive range of motion but unfortunately there is still significant limitations with active range of motion. The patient tolerated the procedure well and was returned to the Same Day Surgery area in a stable condition suffering no known complication.
== END 2023-08-01 13:50 | disposition home or self-care (01) ==
PROVIDERS: PCP Family Medicine; Visit Provider Student in an Organized Health Care Education/Training Program
PROC: (CPT 26055; principal; 2023-08-01 14:45)
DX: M65.311 Trigger thumb, right thumb (principal); M25.642 Stiffness of left hand, not elsewhere classified
CPT/HCPCS: 26340; 26055; J2004

== ENCOUNTER → 2023-11-30 00:09 | Outpatient (CLI) | payer BC, SELFPAY ==
--- NOTE | 2023-11-30 09:32 | DI.RAD_ITS ---
Exam(s) XR KNEE LT 3V AP,LAT,ADRIANE EXAM: XR KNEE LT 3V AP,LAT,ADRIANE CLINICAL HISTORY: left knee pain s/p twisting injury, M25.562. TECHNIQUE: 2D digital imaging was performed of the left knee. Four images were obtained. AP, later al and PA tunnel views were obtained. COMPARISON: No exams were available for comparison FINDINGS: BONES: No acute fracture is present. No bony destructive lesion is seen. JOINTS: Small osteophytes are seen at the posterior patella. There is mild narrowing of the medial f emoral tibial joint. Chondrocalcinosis is present. No joint effusion is seen. No loose body. SOFT TISSUE: Vascular calcifications are present. IMPRESSION: Mild arthrosis of the left knee. DATA REPOSITORY: RADIATION DOSE DELIVERED:
== END ==
PROVIDERS: PCP Family Medicine; Visit Provider Family Medicine
DX: M25.562 Pain in left knee (principal); Z12.2 Encounter for screening for malignant neoplasm of respiratory organs
CPT/HCPCS: 73562

== ENCOUNTER 2024-09-18 00:26 | Outpatient (CLI) | payer OTHER, SELFPAY ==
--- NOTE | 2024-09-18 07:11 | DI.CT_ITS ---
Exam(s) CT ABDOMEN PELVIS W EXAM: CT ABDOMEN PELVIS W CLINICAL HISTORY: worsening pain in area of CT abnormality 12/25,ruq pain,r10.11. TECHNIQUE: Imaging Protocol: Axial computed tomography images with coronal and sagittal reformatted images were created and reviewed CONTRAST MATERIAL: Intravenous: Omnipaque-350 100cc Oral: Yes. Oral contrast was also administered for bowel opacification. COMPARISON: CT CT CHEST PE CTA from 07/06/[address] CHEST LUNG CANCER SCREEN from 12/04/2023 CT scan 12/04/2023 FINDINGS: VISUALIZED LUNG BASES: No nodules nor pleural effusions evident. ABDOMEN: The oral contrast has reached the rectum by the time of image acquisition. There is no evidence of b owel obstruction, free air, nor abscess. LIVER: There are no focal hepatic lesions evident. No dilated intrahepatic ducts. GALLBLADDER/BILIARY: No obvious gallbladder pathology. CBD is not dilated. PANCREAS: No evidence of pancreatic mass nor dilatation of the pancreatic duct. SPLEEN: Spleen is not enlarged. No obvious intrasplenic lesions. Splenic and portal veins are paten t. ADRENALS: There are no significant adrenal masses. KIDNEYS:No cysts evident. No solid renal masses. No calculi nor hydronephrosis.. ABDOMINAL AORTA: Calcified but not enlarged. Iliac arteries also calcified but not enlarged. LYMPH NODES:There is no retroperitoneal nor paraaortic adenopathy. ABDOMINAL WALL: No evidence of significant anterior abdominal wall hernias. However, there are again noted relatively symmetrical appearing abnormal subcutaneous densities in streaking over both sides of the anterior abdominal wall approximately 8 cm lateral to the midline on both sides and containing calcification on both sides. There does not appear to be a drainable fluid collection at these leve ls but there does appear to be overlying skin thickening-probable cellulitis. PELVIS: GI: No evidence of appendicitis.No significant sigmoid diverticular disease. Moderate-increased amou nt of fecal material noted throughout the colon. Terminal ileum appears unremarkable. LYMPH NODES: There is no intrapelvic nor inguinal adenopathy. REPRODUCTIVE: Prostate size normal. Seminal vesicles unremarkable. URINARY BLADDER: No calculi nor obvious masses evident OSSEOUS: No fractures and no significant osseous lesions. Incidentally noted is limbus vertebra at t he anterosuperior aspect of L4. No acute fractures evident IMPRESSION: 1. The main findings here are in the subcutaneous fat over both sides of the anterior abdominal wall above the umbilicus, approximately 8 cm lateral of center bilaterally. There is subcutaneous streaki ng and calcification and overlying skin thickening. This appears slightly more prominent on the righ t side but the bilateral appearance is quite similar implying similar pathology bilaterally. This do es not cross the midline and there is no evidence of inflammatory process at the level of the umbilic us. There are no drainable abscess is at these levels. These findings were evident on lowermost isis ges of the chest CT scan performed December 2023. Consider tissue sampling RADIATION DOSE DELIVERED: 355.72mGy.cm Total DLP DATA REPOSITORY: All CT scans at this facility are submitted to the National Radiology Data Registry (NRDR) Dose Index Registry (DIR) with the [employer] (A[employer]). RADIATION OPTIMIZATION: All CT scans at this facility use at least one of these dose optimization te chniques: automated exposure control; mA and/or kV adjustment per patient size (includes targeted exa ms where dose is matched to clinical indication); or iterative reconstruction.
[2024-09-18] MEDS: Barium Sulfate 2% W/V-Berry Smoothie 450 ML BTL PO (09:00)
[2024-09-18] MEDS: Barium Sulfate 2% W/V-Creamy Vanilla Smoothie 450 ML BTL PO (09:01)
[2024-09-18 09:26] LABS: Abs Immature Grans 0.08 10^3/uL (0.0-0.06); Absolute Basophil Count 0.06 10^3/uL (0.0-0.2); Absolute Eosinophil Count 0.18 10^3/uL (0.0-0.7); Absolute Lymphocyte Count 2.99 10^3/uL (1.2-3.4); Absolute Monocyte Count 0.87 10^3/uL (0.1-0.8); Absolute Neutrophil Count 3.62 10^3/uL (1.2-6.7); Basophils % 0.8 %; Eosinophils % 2.3 %; HCT 50.3 % (40.0-50.0); Lymphocytes % 38.3 %; MCH 30.7 pg (27.0-33.0); MCHC 33.8 % (32.0-36.0); MCV 91 fL (80-95); MPV 9.9 fL (8.0-11.0); Monocytes % 11.2 %; Neutrophils % 46.4 %; Platelet Count 235 10^3/uL (130-400); RBC 5.53 10^6/uL (4.36-5.78); RDW 13.2 % (11.8-14.1); RDW-SD 43.9 fL
[2024-09-18 09:56] LABS: ALT 55 U/L (16-63); AST 30 U/L (15-37); Albumin 4.1 g/dL (3.4-5.0); Alkaline Phosphatase 111 U/L (46-116); Anion Gap 9.2 mmol/L (3-11); BUN 20 mg/dL (7-18); Bilirubin, Total 0.5 mg/dL (0.2-1.0); CO2 27.8 mmol/L (21.0-32.0); CREATININE 1.1 mg/dL (0.70-1.30); Calcium 9.1 mg/dL (8.5-10.1); Chloride 102 mmol/L (98-107); Estimated GFR 77.81 (mL/min/1.73m2); Glucose 108 mg/dL (74-106); Potassium 4.4 mmol/L (3.5-5.1); Sodium 139 mmol/L (136-145); Total Protein 7.4 g/dL (6.4-8.2)
[2024-09-18] MEDS: Omnipaque 350 MG/ML 100 ML BTL 75 ML IJ (10:59)
[2024-09-18] MEDS: Normal Saline - Diluent 50 ML VIAL IJ (11:00)
[2024-09-18 18:34] LABS: PSA, Screening 0.4 ng/mL (<=3.5)
[2024-09-19 11:44] LABS: HBs Antibody, Quant <3.1 mIU/mL (See Note); Hep B Surface Ab Negative (See Note); Hepatitis B Core Antibody Negative (Negative); Hepatitis B Surface Antigen Negative (Negative)
== END 2024-09-18 00:46 ==
LOC: DI 00:26
PROVIDERS: PCP Family Medicine; Visit Provider Nurse Practitioner Family
DX: R10.11 Right upper quadrant pain (principal); Z12.5 Encounter for screening for malignant neoplasm of prostate; Z11.59 Encounter for screening for other viral diseases
CPT/HCPCS: 80053; 84153; 86704; 86706; 87340; 74177; 85025; J3490

== ENCOUNTER 2024-10-07 09:16 | Day surgery (SDC) | payer OTHER, SELFPAY ==
--- NOTE | 2024-10-06 16:31 | PDOC.DSDIS_ITS ---
Date of service: 10/07/24 Discharge Plan Disposition Patient Disposition: Home Condition: Good Discharge Details Reason For Visit: Incisional biopsy Attending Provider: Chas Lubin Primary Care Provider: Jay Gomez Home Meds and New Rx's Prescriptions: Continued Lyumjev KwikPen U-100 Insulin 100 unit/mL insulin pen 1 sliding scale dose subcut USEASDIRECTD Rx Instructions: 4-15 units sc tid lisinopril 10 mg tablet 10 mg PO DAILY Qty: 90 3RF insulin glargine [Lantus Solostar U-100 Insulin] 100 unit/mL (3 mL) insulin pen 20 unit SC BID atorvastatin 40 mg tablet 80 mg PO QHS sildenafil 100 mg tablet 50 - 100 mg PO DAILY PRN (Reason: sexual activity) Qty: 30 2RF Rx Instructions: administer 30 minutes to 4 hours before activity acetaminophen 500 mg tablet 1,000 mg PO TID Qty: 90 0RF ibuprofen 600 mg tablet 600 mg PO TID PRN (Reason: pain) Qty: 90 0RF itraconazole 100 mg capsule 200 mg PO DAILY PRN Rx Instructions: must administer with a meal/food calcium carbonate 500 MG tablet,chewable 500 mg PO PRN PRN (DME) pen needle, diabetic [CareTouch Pen Needle] 31 gauge x 3/16 needle See Rx Instructions .ROUTE .MEDSUPPLY Qty: 50 0RF Rx Instructions: As directed Discharge Instructions Additional Instructions: Chas, I hope you make a quick recovery from the procedure, and that you feel well in the days to come. Things went very smoothly today. As we discussed beforehand, I made a small incision, and biopsied some of the subcutaneous soft tissues and fat underneath of your skin. Certainly, the character of that tissue was out of the ordinary. Based on its appearance today, I do think this supports a diagnosis of fat necrosis, or perhaps saponification secondary to your insulin shots. I will send this tissue off to the pathologist for the review. The good news is, it does not appear consistent with anything particularly dangerous, the bad news is (like we talked about beforehand) this is going to be challenging since you need insulin to help control your diabetes. For now, I think your safest option is to rotate insulin shots to multiple areas on your skin to help reduce concentrating it in any [address] Gomez might have some other ideas, but this also might require referral to an district extension service agent to see if they have any other approaches to this problem. I did go ahead and set up a follow-up appointment in our office for suture removal, and certainly if we get the pathology results and there is anything else out of the ordinary, we will be in touch as soon as we have it. If you need anything or have any questions at all, please do not hesitate to ask. 1. Resume all of your regular medications. 2. Use ice packs over the incision site to help with pain and swelling 3. Okay to use tylenol and ibuprofen over the counter as needed. You could also try some topical medicated creams or patches to see if that helps with your discomfort. These typically contain lidocaine, capsaicin, aspirin, Arnica or menthol. 4. Leave bandage in place for 24 hours, then remove. 5. Shower with warm soapy water. Pat dry. Use a bandaid if needed to protect your clothing or if you find the sutures irritated. 6. No soaking or tub baths until I see you in the office. 7. No heavy lifting until I see you in the office. 8. Call the office (or go directly to the emergency room after hours) if you notice any of the following: Develop chills (warm to touch), or if you have a thermometer and your temperature is above 101 Difficulty breathing or difficultly swallowing Persistent vomiting Any bleeding ? exceeding one tablespoon 9. Call your physician if the site where your intravenous was started becomes red, swollen, painful, and warm to touch. Activity:: Activity as Tolerated Remove Dressings/Wound Care:: 24 hours Shower/Bathe:: 24 hours Diet:: As Tolerated DS: Diagnosis Discharge Diagnosis (1) Right upper quadrant pain: Status: Acute Asessment and Plan: Outpatient postoperative follow-up for suture removal
--- NOTE | 2024-10-06 16:33 | W.PM.OP ---
Operative Note Operative Note PRE-OP DIAGNOSIS: Subcutaneous inflammation from insulin shots POST-OP DIAGNOSIS: other (Fat necrosis, and possibly saponification from insulin shots) PROCEDURE: Incisional biopsy of abdominal wall SURGEON: Chas Lubin FINAL COAT SPRAYER: Danyelle Ramos ANESTHESIA TYPE: Local By Surgeon and General:No Airway Refer to Anesthesia Record ESTIMATED BLOOD LOSS: 5 PATHOLOGY: other (Abdominal wall) COMPLICATIONS: None Patient was transported to: same day Patient's condition: stable Indications: Chas is a 59-year-old male with pain in the subcutaneous tissues to the anterior abdominal wall. He has CT scan findings demonstrating likely chronic inflammation of the subcutaneous fat Findings: Fat necrosis and possible saponification of subcutaneous fat in the right anterior abdominal Procedure Description: I met with Chas in the preoperative area, and he showed me the area where he has most symptoms. This corresponded with the area of CT abnormalities, we measured this out marked on the anterior abdominal wall. Next, we moved back to the operating room. Anterior abdominal wall was prepped and draped. Next, general anesthesia was induced by way of a natural airway. I then established a generous field block using local anesthetic mixed with Exparel. I made an approximate 6 cm transverse incision over the area that we identified in the preoperative space. I dissected down to the subcutaneous fat. Portion of this was grasped with Allis clamps, and sharply dissected around its periphery. Character of the tissue was quite atypical, and there were some changes that seem to most consistent with chronic inflammation and fat necrosis, and perhaps some element of saponification. The healthy portion of tissue was dissected free, and sharply excised. It was passed off the field for formal preservation in formalin. The site was examined. There were few areas of minimal bleeding that was easily controlled with electrocautery. Subcutaneous tissues were reapproximated with interrupted Vicryl stitches, and the skin was closed with interrupted Prolene's. Band-Aids were applied, and Chas was transferred back to the day surgery unit. Date of Procedure: 10/07/24
[2024-10-07 09:37] VITALS: BP 120/69; PULSE 66; RESP 18; TEMP 36.3; O2SAT 98
[2024-10-07] MEDS: Lactated Ringers 1,000 ML 80 ML IV (10:26)
--- NOTE | 2024-10-07 10:35 | ANES.PREOP_ITS ---
General Info Date of Service Date Performed: 10/07/24 Height: 5 ft 3.25 in Weight: 68 kg Body Mass Index (BMI): 26.3 Surgical Procedure: Operation Date: 10/07/24 11:40 Proposed Procedure Side Surgeon p Incisional Biopsy Abdominal Wall Right Chas Lubin MD Meds Allergies and Home Medications Allergies Allergy/AdvReac Type Severity Reaction Status Date / Time No Known Allergies Allergy Verified 10/07/24 09:41 Home Medication ?Medication ?Instructions ?Recorded calcium carbonate 500 mg PO PRN PRN 10/09/16 insulin glargine 100 unit/mL (3 20 unit subcut BID 08/19/19 mL) subcutaneous pen (Lantus Solostar U-100 Insulin) atorvastatin 40 mg tablet 80 mg PO QHS 10/08/20 sildenafil 100 mg tablet 50 - 100 mg (0.5 - 1 x 100 mg) PO 05/20/21 DAILY PRN sexual activity #30 tabs pen needle, diabetic 31 gauge x #50 ea 07/09/2108/17 (CareTouch Pen Needle) insulin lispro-aabc 100 unit/mL 1 sliding scale dose subcut 07/13/21 subcutaneous pen (Lyumjev KwikPen USEASDIRECTD U-100 Insulin) acetaminophen 500 mg tablet 1,000 mg (2 x 500 mg) PO TID #90 08/01/23 tabs ibuprofen 600 mg tablet 600 mg PO TID PRN pain #90 tabs 08/01/23 lisinopril 10 mg tablet 10 mg PO DAILY #90 tabs 05/22/24 itraconazole 100 mg capsule 200 mg PO DAILY PRN 10/03/24 Current Visit Medications: Current Medications Generic Name Dose Route Start Last Admin Trade Name Freq PRN Reason Stop Dose Admin Hydromorphone HCl 0.2 mg 10/06/24 16:34 Hydromorphone 2 Mg/Ml Syr IVP 11/05/24 16:33 Q1H PRN PRN Ringer's Solution 1,000 mls @ 80 mls/hr 10/07/24 06:00 10/07/24 10:26 IV 10/07/24 23:59 80 mls/hr INFUSION HAO Administration IV Miscellaneous Supplies 1 each 10/07/24 06:00 Iv Access IV 10/07/24 23:59 DIRECTED HAO Sodium Chloride 0 ml 10/07/24 06:00 Normal Saline Flush 10 Ml Syr IV 10/07/24 23:59 PRN PRN Sodium Chloride 0 ml 10/07/24 06:00 Normal Saline 10 Ml Vial IJ 10/07/24 23:59 DIRECTED PRN Sterile Water 0 ml 10/07/24 06:00 Water,Injection,Sterile 10 Ml Vial IJ 10/07/24 23:59 DIRECTED PRN Tramadol HCl 50 mg 10/06/24 16:34 Tramadol 50 Mg Tab PO 11/05/24 16:33 Q6H PRN PRN Pain PFSH Active Problems Active Problems: Problem Status Onset Code Right upper quadrant pain Acute R10.11 Acute medial meniscal injury of left knee Acute S83.8X2A Abdominal wall asymmetry Acute R19.8 Knee pain, left Acute M25.562 Finger stiffness Acute M25.649 Tobacco abuse Acute Z72.0 Draining cutaneous sinus tract Acute L98.8 Suppurative tenosynovitis of flexor tendon of left hand Acute M65.142 Tinea versicolor Acute B36.0 Pruritic condition Acute L29.9 Adjustment disorder with depressed mood Acute F43.21 Viral pneumonitis Acute J12.9 CARMENCITA on CPAP Chronic G47.33, Z99.89 DM (diabetes mellitus) Acute Medical History Medical History Trigger index finger of left hand Left middle finger DOS: 08/08/22 Hypertension Diabetes mellitus Type I Orthopnea Pneumonia Respiratory failure with hypoxia Cough Hypoxia Tinea versicolor Trigger index finger of left hand s/p left index finger trigger release DOS: 09/07/20 Diabetic retinopathy of both eyes (~06/10/20) MODERATE B/L Impingement syndrome of left shoulder CARMENCITA (obstructive sleep apnea) uses cpap Tear of right rotator cuff Tendinosis of rotator cuff Elevated blood pressure reading without diagnosis of hypertension Shoulder pain, right Subacromial bursitis Umbilical hernia Cellulitis of toe Rash Tinea corporis Hyperlipidemia Gastritis (04/09/17) Esophagitis (04/09/17) 04/09/17 SEVERE WITH ULCER Diabetes mellitus type 1 (10/24/12) continue with endo GERD (gastroesophageal reflux disease) Medical History Comments:: Does use CPAP nightly Surgical History Surgical History Trigger thumb, right thumb S/P Release: 07/22/2023 DJD of AC (acromioclavicular) joint S/P distal clavicle excision/acromioplasty: 01/26/2020 EGD - MAC (04/09/17) Colonoscopy - MAC (04/09/17) Tobacco Smoking/Tobacco Use Status: Former Tobacco Use Passive smoking exposure: Yes Second hand exposure: Yes Alcohol Alcohol Intake: current Alcohol intake frequency: holidays/special occasions only Alcohol type: beer Substance Use Substance use: Never Substance use type: does not use Vital Signs and Lab Results Vital Signs Most Recent Vital Signs in EMR: Most Recent Vital Signs Temp Pulse Resp BP Pulse Ox 36.3 C L 66 18 120/69 98 10/07/24 09:37 10/07/24 09:37 10/07/24 09:37 10/07/24 09:37 10/07/24 09:37 Lab Results Blood Type / Crossmatch: 2 No Data to Display Complete Blood Count: 2 White Blood Count 7.80 10^3/uL (4.4-10.8) 09/18/24 09:10 Red Blood Count 5.53 10^6/uL (4.36-5.78) 09/18/24 09:10 Hemoglobin 17.0 g/dL (13.5-17.5) 09/18/24 09:10 Hematocrit 50.3 % (40.0-50.0) H 09/18/24 09:10 Platelet Count 235 10^3/uL (130-400) 09/18/24 09:10 Complete Metabolic Panel: 2 Sodium 139 mmol/L (136-145) 09/18/24 09:10 Potassium 4.4 mmol/L (3.5-5.1) 09/18/24 09:10 Chloride 102 mmol/L (98-107) 09/18/24 09:10 Carbon Dioxide 27.8 mmol/L (21.0-32.0) 09/18/24 09:10 BUN 20 mg/dL (7-18) H 09/18/24 09:10 Creatinine 1.1 mg/dL (0.70-1.30) 09/18/24 09:10 Est GFR (CKD-EPI 2020) 77.81 (mL/min/1.73m2) 09/18/24 09:10 Calcium 9.1 mg/dL (8.5-10.1) 09/18/24 09:10 Albumin 4.1 g/dL (3.4-5.0) 09/18/24 09:10 Glucose 108 mg/dL (74-106) H 09/18/24 09:10 Liver Function Panel: 2 Alanine Aminotransferase (ALT/SGPT) 55 U/L (16-63) 09/18/24 09: 10 Aspartate Amino Transf (AST/SGOT) 30 U/L (15-37) 09/18/24 09:10 Coagulation Panel: 2 No Data to Display Cardiac Panel: 2 No Data to Display Arterial Blood Gas: 2 No Data to Display Venous Blood Gas: 2 No Data to Display Pancreas Panel: 2 No Data to Display Thyroid Panel: 2 No Data to Display Infectious Disease: 2 Hepatitis B Surface Antigen Negative (Negative) 09/18/24 09:10 Blood Cultures: 2 No Data to Display Toxicology Panel: 2 No Data to Display Imaging and Studies Imaging and Studies Study information below may be from another EMR and interpreted by another provider. Please see original notes in EMR for more complete details. EKG Summary: 07/06/2021: Exam: Resting ECG Reason for Exam: shortness of breath Patient Location: E HR:103 bpm ECG Measurements Heart Rate 103 AXIS NJ 88 P 51 QRSd 81 QRS 84 QT 327 T55 QTc 429 Conclusion Sinus tachycardia...rate> 99 I have reviewed and I agree with the emergency room physician's ECG interpretation Echocardiogram Summary: 07/07/2021: Conclusion Normal left ventricular wall thickness and chamber size. Estimated ejection fraction is 60%. Wall motion is normal Normal right ventricular size and systolic function Both atria are normal in size There is no structural or hemodynamically significant valvular disease Right ventricular systolic pressure could not be estimated Anesthesia Assessment and Plan Anesthesia History Personal History: No History of Anesthesia Complications Family History: No Family History of Anesthesia Complications Exercise Tolerance Exercise Tolerance: Metabolic Equivalents>4 Pertinent Negatives Pertinent Negatives: No Major Cardiovascular Symptoms or Complaints, No Major Pulmonary Symptoms or Complaints and No History of CVA/TIA Cardiac & Pulmonary Exam Cardiac Exam: Normal S1/S2 Heart Sounds Pulmonary Exam: Clear Bilateral Breath Sounds Implantable Cardiac Device Does patient have a Pacemaker or an ICD?: No Airway Exam Known Difficult Airway: No Mallampati Class: 2 Mouth Opening: Normal (> 3cm) Thyromental Distance: Greater than 3 cm Neck Range of Motion: Full ROM Neck Circumference: Normal Teeth Condition: Generalized Poor Dentition Tooth Numberin 1. missing ASA Classification ASA Score: ASA 3 Emergency Case?: No NPO Status NPO Status: NPO Clears >2 hours, Solids >8 hours Anesthesia Plan Resuscitation Status: Full Code Anesthesia Technique: General Anesthesia Airway Planned: Natural Airway Monitors Used: Standard Monitors
[2024-10-07 10:39] VITALS: BMI 26.3
--- NOTE | 2024-10-07 10:55 | SKI_PTH ---
PATIENT: Chas Lopez LOC: [facility] U#:[id number] AGE/SX: 59/M ROOM: RE10/07/[address]: Chas Lubin MD : 1965 BED: DIS: 10/07/2024 SPEC #: [id number] RECD: 10/07/24 12:55 STATUS: PRINCESS REQ #: [id number] LILLI: 10/07/24 10:[address]: Chas Lubin DEPT: Surgical Specimen RECD BY: Manda Harrell ENTERED: 10/07/24 12:58 SP TYPE: EDNA GALEANA DR: Jay Gomez MD Tissues: 1 - SKIN BIOPSY(SHAVE/PUNCH) Procedures: SPECIAL STAIN 2 GROSS AND MICRO LEVEL 3 Comments: [id number]
[2024-10-07] MEDS: Bupivacaine 0.25% Pres-Free 30 ML VIAL (11:00)
[2024-10-07] MEDS: Bupivacaine LIPOSOME/PF 133 MG/10 ML VIAL IJ (11:00)
[2024-10-07 11:14] VITALS: BP 110/64; PULSE 59; RESP 16; TEMP 36; O2SAT 96
--- NOTE | 2024-10-07 11:39 | W.ANESPOSTOP ---
Postoperative Evaluation Date, Time and Location Date Performed: 10/07/24 Time Performed: 11:39 Patient Location: Day Surgery Unit Vital Signs Most Recent Imported Vital Signs: Most Recent Vital Signs Temp Pulse Resp BP Pulse Ox 36 C L 59 L 16 110/64 96 10/07/24 11:14 10/07/24 11:14 10/07/24 11:14 10/07/24 11:14 10/07/24 11:14 Pain Score Most Recent Pain Score: Most Recent Pain Score Pain Level 0 10/07/24 11:14 Assessment Mental Status: Awake (Alert & Oriented to Patient Baseline) Airway and Respiratory Function: Patent airway with normal (patient baseline) respiratory exam Cardiovascular Function: Hemodynamically Stable Hydration Status: Adequately Hydrated Nausea & Vomiting: No Nausea or Vomiting Pain: Pt. Denies Any Pain Peripheral Nerve Block: Patient did not receive a nerve block
[2024-10-07 11:45] VITALS: BP 113/66; PULSE 60; RESP 16; TEMP 36.1; O2SAT 97
== END 2024-10-07 12:12 | disposition home or self-care (01) ==
LOC: SUR 09:16
PROVIDERS: PCP Family Medicine; Visit Provider Surgery
PROC: (CPT 22902; principal; 2024-10-07 11:30)
DX: R10.11 Right upper quadrant pain (principal); M79.89 Other specified soft tissue disorders; R19.8 Other specified symptoms and signs involving the digestive system and abdomen; E11.9 Type 2 diabetes mellitus without complications; Z79.4 Long term (current) use of insulin
CPT/HCPCS: 22902; 88304; 88305; 88313; J0131; J0665; J0666; J1885; J2704

== ENCOUNTER 2025-01-16 21:15 | Outpatient (REF) | payer OTHER, SELFPAY ==
[2025-01-20 13:20] LABS: Helicobacter pylori Ag, Feces Negative (Negative)
== END 2025-01-16 21:16 | disposition home or self-care (01) ==
LOC: LBN 21:15
PROVIDERS: PCP Family Medicine; Visit Provider Surgery
DX: A04.8 Other specified bacterial intestinal infections (principal)
CPT/HCPCS: 87338

== ENCOUNTER 2025-05-21 08:18 | Emergency (ER) | payer OTHER, SELFPAY ==
[2025-05-21] VITALS (17 sets, daily range): BP systolic 121–159; BP diastolic 57–71; PULSE 60–78; RESP 18–20; TEMP 36.6; O2SAT 94–98
--- NOTE | 2025-05-21 08:23 | W.ED.GENAD ---
Discharge Plan Disposition Patient Disposition: Home Discharge Details Clinical Impression: Acute urinary retention, Constipation Primary Care Provider: Jay Gomez ED Provider: Otto Denton Home Meds and New Rx's Prescriptions: New sennosides-docusate sodium [Colace 2-In-1] 8.6-50 mg tablet 1 tab-cap PO QHS Qty: 14 0RF Continued Lyumjev KwikPen U-100 Insulin 100 unit/mL insulin pen 1 sliding scale dose subcut USEASDIRECTD Rx Instructions: 4-15 units sc tid lisinopril 10 mg tablet 10 mg PO DAILY Qty: 90 3RF atorvastatin 80 mg tablet 80 mg PO QHS omeprazole 20 mg capsule,delayed release(DR/EC) 20 mg PO DAILY lidocaine HCl 2 % jelly 1 applic topical QD-TID PRN (Reason: pain) Qty: 50 0RF sildenafil 100 mg tablet 50 - 100 mg PO DAILY PRN (Reason: sexual activity) Qty: 30 2RF Rx Instructions: administer 30 minutes to 4 hours before activity insulin glargine [Lantus Solostar U-100 Insulin] 100 unit/mL (3 mL) insulin pen See Rx Instructions SC BID Rx Instructions: 18 in AM; 16 at HS subcutaneously twice a day; ibuprofen 600 mg tablet 600 mg PO TID PRN (Reason: pain) Qty: 90 0RF itraconazole 100 mg capsule 200 mg PO DAILY PRN Rx Instructions: must administer with a meal/food (DME) pen needle, diabetic [CareTouch Pen Needle] 31 gauge x 3/16 needle See Rx Instructions .ROUTE .MEDSUPPLY Qty: 50 0RF Rx Instructions: As directed Discharge Instructions Additional Instructions: You are seen in the emergency department for your constipation. Your CAT scan showed no sign of any dangerous processes in your stomach. Your MRI as we discussed, showed no sign of any dangerous processes. You did have several areas of narrowing and these are not uncommon. Please take the stool softeners as directed. Please return to the emergency department if you develop any vomiting that does not stop or if you have any other concerns. Stand Alone Forms: Portal Information HPI General Date/Time Provider Initiated Documentation: 05/21/25 08:22. HPI Narrative: MDM This patient has back pain and new urinary retention with loss of bowel control concerning for cauda equina for which he will undergo MRI. No rash to abdomen to suggest zoster. Soft nontender abdomen and I suspicion is low for intra-abdominal masses the patient has had screening colonoscopies. Nonetheless we will obtain CT abdomen pelvis. In the absence of any ongoing rectal bleeding I did not feel that the patient required rectal exam. Will obtain CBC to assess for anemia. No right lower quadrant tenderness to suggest appendicitis. No left lower quadrant pain to suggest diverticulitis. No testicular pain to suggest torsion. No black or bloody stools to suggest GI bleed. 11:37 AM CBC with no anemia or thrombocytopenia nor leukocytosis. 12:17 PM Patient was straight cathed for 700 cc of urine. He subsequently was able to urinate approximately 300 cc of urine. He will receive a Fleet enema. His CT scan showed no sign of any pathological processes beyond constipation. His MRI was reassuring against any cord compression. Given that he was able to urinate after being straight cath I do not feel he required Stern placement or hospitalization for ongoing assessment and monitoring. He felt improved. He did not have a bowel movement but he did receive senna Colace and Fleet enema in the emergency department. We discussed that he should return if you develop any abdominal pain begin vomiting or if he had any other concerns. He understood his return indications was discharged with an empiric trial of expectant outpatient management. HPI This is a patient with a history of recurrent foreign body sensation in the throat presenting with difficulty swallowing. The patient reports experiencing a persistent sensation of an object lodged in his throat since the previous night, which has not subsided despite attempts to swallow. He is unable to consume even minimal amounts of water. The patient recalls consuming pork chops for dinner last night. He describes the current episode as less severe than previous ones but notes its persistence. He experiences regurgitation when attempting to drink water and reports discomfort at the top of his esophagus, although he does not experience any associated pain. He also mentions occasional regurgitation of phlegm due to his inability to swallow. The patient reports no trouble breathing. He has a history of similar episodes, with the most recent one occurring over a year ago and another instance approximately 2 years prior. Exam General: Well-appearing in no acute distress speaking in complete sentences. Head: Normocephalic, atraumatic. Eye: Extraocular eye movements intact. No conjunctival injection. No scleral icterus. Ear, nose, mouth, throat: Grossly normal inspection. Normal voice, handling secretions normally. . Neck: Trachea midline. Cardiovascular: Well-perfused distal extremities. Respiratory: Nonlabored respiration. Gastrointestinal: Nondistended abdomen. Soft nontender. Musculoskeletal: No edema. Moving all 4 extremities spontaneously. Skin: Normal for age and race, grossly normal temperature and turgor. No acute rash. Neurologic: Alert and appropriate, no apparent acute deficits. Psychiatric: Mood and manner are appropriate. Grooming and personal hygiene are appropriate. Related Data Home Medications ?Medication ?Instructions ?Recorded ?Confirmed sildenafil 100 mg tablet 50 - 100 mg (0.5 - 1 x 100 mg) PO 05/20/21 05/21/25 DAILY PRN sexual activity #30 tabs pen needle, diabetic 31 gauge x #50 ea 07/09/21 05/21/25/ (CareTouch Pen Needle) insulin lispro-aabc 100 unit/mL 1 sliding scale dose subcut 07/13/21 05/21/25 subcutaneous pen (Padminiumjuaquin Ayoub USEASDIRECTD U-100 Insulin) ibuprofen 600 mg tablet 600 mg PO TID PRN pain #90 tabs 08/01/23 05/21/25 lisinopril 10 mg tablet 10 mg PO DAILY #90 tabs 05/22/24 05/21/25 itraconazole 100 mg capsule 200 mg PO DAILY PRN 10/03/24 05/21/25 atorvastatin 80 mg tablet 80 mg PO QHS 05/15/25 05/21/25 insulin glargine 100 unit/mL (3 See Rx Instructions subcut BID 05/15/25 05/21/25 mL) subcutaneous pen (Lantus Solostar U-100 Insulin) lidocaine HCl 2 % mucosal jelly 1 applic topical QD-TID PRN pain 05/15/25 05/21/25 #50 mL omeprazole 20 mg capsule,delayed 20 mg PO DAILY 05/15/25 05/21/25 release sennosides 8.6 mg-docusate sodium 1 tab-cap PO QHS #14 tabs 05/21/25 50 mg tablet (Colace 2-In-1) Previous Rx's ?Medication ?Instructions ?Recorded sildenafil 100 mg tablet 50 - 100 mg (0.5 - 1 x 100 mg) PO 05/20/21 DAILY PRN sexual activity #30 tabs pen needle, diabetic 31 gauge x #50 ea 07/09/21 3/16 (CareTouch Pen Needle) ibuprofen 600 mg tablet 600 mg PO TID PRN pain #90 tabs 08/01/23 lisinopril 10 mg tablet 10 mg PO DAILY #90 tabs 05/22/24 lidocaine HCl 2 % mucosal jelly 1 applic topical QD-TID PRN pain 05/15/25 #50 mL sennosides 8.6 mg-docusate sodium 1 tab-cap PO QHS #14 tabs 05/21/25 50 mg tablet (Colace 2-In-1) Allergies Allergy/AdvReac Type Severity Reaction Status Date / Time No Known Allergies Allergy Verified 05/21/25 08:29 General SHIVANI: 4 Medical Decision Making Quality:SDOH Health Related Social Needs: Health related social needs details none PFSH All Active Problems (Updated 05/21/25 @ 12:14 by Otto Denton MD) Constipation (Acute) Acute urinary retention (Acute) Fecal incontinence (Acute) Lumbar radiculopathy (Acute) Urinary retention (Acute) Rectal bleeding (Acute) Constipation (Acute) Right upper quadrant pain (Acute) Acute medial meniscal injury of left knee (Acute) Abdominal wall asymmetry (Acute) Knee pain, left (Acute) Finger stiffness (Acute) Tobacco abuse (Acute) Draining cutaneous sinus tract (Acute) Suppurative tenosynovitis of flexor tendon of left hand (Acute) s/p I&D DOS: 08/25/22, 10/04/22 Tinea versicolor (Acute) Pruritic condition (Acute) Adjustment disorder with depressed mood (Acute) Viral pneumonitis (Acute) CARMENCITA on CPAP (Chronic) DM (diabetes mellitus) (Acute) Medical History (Updated 05/21/25 @ 12:14 by Otto Denton MD) Trigger index finger of left hand Left middle finger DOS: 08/08/22 Hypertension Diabetes mellitus Type I Orthopnea Pneumonia Respiratory failure with hypoxia Cough Hypoxia Tinea versicolor Trigger index finger of left hand s/p left index finger trigger release DOS: 09/07/20 Diabetic retinopathy of both eyes (~06/10/20) MODERATE B/L Impingement syndrome of left shoulder CARMENCITA (obstructive sleep apnea) uses cpap Tear of right rotator cuff Tendinosis of rotator cuff Elevated blood pressure reading without diagnosis of hypertension Shoulder pain, right Subacromial bursitis Umbilical hernia Cellulitis of toe Rash Tinea corporis Hyperlipidemia Gastritis (04/09/17) Esophagitis (04/09/17) 04/09/17 SEVERE WITH ULCER Diabetes mellitus type 1 (10/24/12) continue with endo GERD (gastroesophageal reflux disease) Surgical History (Updated 10/09/24 @ 07:35 by Shira Sandra) Hx of biopsy (~10/2024) Trigger thumb, right thumb S/P Release: 07/22/2023 DJD of AC (acromioclavicular) joint S/P distal clavicle excision/acromioplasty: 01/26/2020 EGD - MAC (04/09/17) Colonoscopy - MAC (04/09/17) Family History (Updated 05/15/25 @ 15:53 by Melyssa Colindres MD) Mother Breast cancer Father Alcohol abuse Heart disease Stroke Depression Hyperlipidemia Brother Age: 54 Heart disease Stroke Alcohol abuse Son 25 Substance abuse Depression Substance use disorder Sister Age: 60 Asthma Social History (Updated 08/08/24 @ 11:26 by Nikia Carter) Smoking/Tobacco Use Status: Former Tobacco Use tobacco type: cigarettes Tobacco: How many years used: 35 Quit status: has quit before Second Hand Exposure: Yes Smoking risk assessment performed?: Yes Alcohol Intake: current Alcohol Intake frequency: holidays/special occasions only Alcohol type: beer Drug use: Never Substance use type: does not use Counseling given: No Adopted: No Caregiver/Support person: No Household members: spouse and children Housing: house Number of Children: 1 number of grandchildren: 5 Communication Needs: None Education Level: high school Details: 12th Do you need help understanding health information?: Never Pets and animals: Yes Pets and animals: dog(s) Sexually active: No Do you think of yourself as: straight/heterosexual Current gender identity: male What is your relationship status?: How often do you talk on the phone with friends or family?: once per week How often do you get together with friends or relatives?: once per week How often do you attend lutheran or anglican services?: decline to answer Do you belong to any clubs or organized social groups?: no Panel score (0-1 are the most socially isolated patients): 1 What type of physical activity do you participate in: walking Duration: 60-90 minutes/day Frequency: daily Rachele/Faith: None Special rachele needs: No Seatbelt use: always Helmet use: No Drive intox or ride w/intox helper/driver: No Firearms in home: No Do you feel safe at home: Yes Do you feel safe in your relationship?: Yes Victim of physical abuse: No Victim of emotional abuse: No Victim of sexual abuse: No Would you like helpful sources: No
--- NOTE | 2025-05-21 09:00 | DI.CT_ITS ---
Exam(s) CT ABDOMEN PELVIS W EXAM: CT ABDOMEN PELVIS W CLINICAL HISTORY: Constipation TECHNIQUE: Imaging Protocol: Axial computed tomography images with coronal and sagittal reformatted images were created and reviewed. CONTRAST MATERIAL: Intravenous: Omnipaque 350 Contrast volume:75 mL Oral: No COMPARISON: CT CT ABDOMEN PELVIS W from 09/18/2024 FINDINGS: ABDOMEN: Lung Bases: No acute abnormality. Liver: Normal density. No measurable mass. Portal, Superior Mesenteric, and Splenic Veins: Unremarkable. Gallbladder and Biliary Tract: No radiodense calculus or dilation. Pancreas: Normal density, no abnormal calcifications or inflammatory process. Spleen: Normal. Adrenals: No masses seen. Kidneys: Normal size, contour and axis. No radiodense stones or obstructive uropathy. No masses seen. Abdominal Aorta: Abdominal portion non-dilated. Atherosclerotic calcification is present. Bowel: No obstruction or bowel wall thickening. There is stool seen throughout the colon suggesting constipation. There is no evidence of appendicitis. Peritoneal Cavity: No ascites, collection or mesenteric inflammatory response. No free air. Lymph Nodes: Within normal limits. Bones: Within normal limits for the patient's age. Soft Tissues: There is a small fat containing left inguinal hernia. PELVIS: Bladder: Symmetric distention, no gross wall thickening. Reproductive Organs: Unremarkable as visualized. Lymph Nodes: Within normal limits. Bones: Within normal limits for the patient's age. IMPRESSION: 1. Stool seen throughout the colon suggesting constipation. 2. There is no acute abdominal or pelvic process. RADIATION DOSE DELIVERED: 272.62mGy.cm Total DLP DATA REPOSITORY: All CT scans at this facility are submitted to the National Radiology Data Registry (NRDR) Dose Index Registry (DIR) with the [employer] (ACR). RADIATION OPTIMIZATION: All CT scans at this facility use at least one of these dose optimization techniques: automated exposure control; mA and/or kV adjustment per patient size (includes targeted exams where dose is matched to clinical indication); or iterative reconstruction.
[2025-05-21] MEDS: Omnipaque 350 MG/ML 100 ML BTL IJ (10:42)
[2025-05-21] MEDS: Normal Saline - Diluent 50 ML VIAL IJ (10:43)
--- NOTE | 2025-05-21 10:45 | DI.MRI_ITS ---
Exam(s) MR LUMBAR SPINE WO EXAM: MR LUMBAR SPINE WO CLINICAL HISTORY: Low back pain urinary retention. TECHNIQUE: Multiplanar multisequence MRI of the Lumbar spine was performed. COMPARISON: CT CT ABDOMEN PELVIS W from 09/18/2024 FINDINGS: Bones: The last intervertebral disc space is designated the L5/S1 level for the numbering purpose of this examination. The vertebral body heights are well maintained. Alignment is satisfactory. Degenerative endplate signal changes are seen particularly at L3-4 and L4-L5. Cord: It is of normal size and signal intensity. The distal spinal cord and nerve roots are unremarkable. T12-L1: No disc herniations or bulges are present. No central spinal canal or neural foraminal stenosis. L1-2: No disc herniations or bulges are present. No central spinal canal or neural foraminal stenosis. L2-3: No disc herniations or bulges are present. No central spinal canal or neural foraminal stenosis. L3-4: There is a mild diffuse disc bulge. There is extension into the right neural foramen causing mild right neural foraminal stenosis. There is mild narrowing of the central spinal canal. No significant left neural foraminal stenosis is seen. L4-5: There is a diffuse disc bulge and a small central disc herniation with extrusion posterior to the L5 vertebral body. There is resultant mild central spinal canal stenosis and question of left lateral recess stenosis with compression of the left L5 nerve root.There is mild left neural foraminal s tenosis. No significant right neural foraminal stenosis is present. L5-S1: No disc herniations or bulges are present. No central spinal canal or neural foraminal stenosis.There are degenerative changes of the facets seen at this level. Soft tissues: The visualized SI joints and sacrum are well maintained. The paraspinal soft tissues are unremarkable. IMPRESSION: 1. There is no evidence of cord compromise. 2. Degenerative changes at L4-L5 with a extruded disc causing left lateral recess stenosis with compression of the left L5 nerve root. There is mild left neural foraminal stenosis at this level. 3. Degenerative changes at L3-L4 with extension into the right neural foramen causing mild right neural foraminal stenosis and mild central spinal canal stenosis. DATA REPOSITORY:
[2025-05-21] MEDS: Lidocaine 2% Jelly 11 ML SYR (11:00)
[2025-05-21] MEDS: Normal Saline 500 ML IV (11:00)
[2025-05-21 11:46] LABS: Glucose Negative (Negative)
[2025-05-21 11:53] LABS: Anion Gap 7.8 mmol/L (3-11); BUN 15 mg/dL (9-23); CO2 24.2 mmol/L (20.0-31.0); Calcium 9.2 mg/dL (8.3-10.6); Chloride 107 mmol/L (98-107); Glucose 116 mg/dL (74-106); Potassium 4.6 mmol/L (3.5-5.1); Sodium 139 mmol/L (136-145)
[2025-05-21] MEDS: Na Phosphate Enema-Adult 133 ML BTL PR (12:33)
[2025-05-21] MEDS: Magnesium Citrate 300 ML BTL PO (12:33)
[2025-05-21] MEDS: Docusate Sodium 100 MG CAP PO (12:33)
[2025-05-21] MEDS: Senna TAB 1 TAB PO (12:59)
[2025-05-21 15:43] LABS: HCT 42.9 % (40.0-50.0); HGB 15.0 g/dL (13.5-17.5); MCH 31.0 pg (27.0-33.0); MCHC 35.0 % (32.0-36.0); MCV 89 fL (80-95); RBC 4.84 10^6/uL (4.36-5.78); WBC 7.63 10^3/uL (4.4-10.8)
[2025-05-21 15:44] LABS: Abs Immature Grans 0.10 10^3/uL (0.0-0.06); Immature Grans % 1.3 %; MPV 9.8 fL (8.0-11.0); Platelet Count 294 10^3/uL (130-400); RDW 12.6 % (11.8-14.1); RDW-SD 41.1 fL
== END 2025-05-21 13:04 | disposition home or self-care (01) ==
PROVIDERS: Emergency Provider Emergency Medicine; PCP Family Medicine
DX: R33.8 Other retention of urine (principal); K59.00 Constipation, unspecified
CPT/HCPCS: 36415; 51701; 51798; 80048; 96360; 99285; 72148; 74177; 81003; 85025; 99284; J3490